=== PATIENT | female | born 1955 | race Caucasian/White ===

== ENCOUNTER 2019-03-16 06:00 | Outpatient (RCR) | payer MEDICARE, MEDICAID, SELFPAY | END 2019-04-15 00:01 | LOC: PULRHB 06:00 | PROVIDERS: Family Provider Internal Medicine; Visit Provider Internal Medicine | DX: J44.9 Chronic obstructive pulmonary disease, unspecified (principal) | CPT/HCPCS: G0237 ×10; G0238 ×6; G0239 ×6 ==

== ENCOUNTER 2019-04-16 06:00 | Outpatient (RCR) | payer MEDICARE, MEDICAID, SELFPAY | END 2019-05-16 23:59 | disposition home or self-care (01) | LOC: PULRHB 06:00 | PROVIDERS: Family Provider Internal Medicine; PCP Internal Medicine; Visit Provider Internal Medicine | DX: J44.9 Chronic obstructive pulmonary disease, unspecified (principal) | CPT/HCPCS: G0237; G0238; G0239 ==

== ENCOUNTER → 2019-12-31 08:27 | Outpatient (BNVA) | payer MEDICARE, MEDICAID, SELFPAY | PROVIDERS: Family Provider Internal Medicine; PCP Urology; Visit Provider Nurse Practitioner Family | DX: N30.20 Other chronic cystitis without hematuria (principal) | CPT/HCPCS: 81001 ==

== ENCOUNTER 2020-02-12 15:15 | Inpatient (IN) | payer MEDICARE, MEDICAID, SELFPAY ==
[2020-02-12] VITALS (20 sets, daily range): BP systolic 73–107; BP diastolic 40–84; PULSE 67–145; RESP 16–25; TEMP 36.4–36.6; O2SAT 82–100; BMI 29.0
--- NOTE | 2020-02-12 15:27 | ECG_ITS ---
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1955 Requested By: Anthony Alfredo Order Number: [id number] Reading MD: BELEM NOONAN Measurements Intervals Strong Rate: 131 P: NE: -1 QRS: -9 QRSD: 151 T: -67 QT: 336 QTc: 497 Interpretive Statements ATRIAL FIBRILLATION WITH RAPID VENTRICULAR RESPONSE RIGHT BUNDLE BRANCH BLOCK [120+ ms QRS DURATION, UPRIGHT V1, 40+ ms S IN I/aVL/V4/V5/V6] ST DEVIATION AND MODERATE T-WAVE ABNORMALITY, CONSIDER ANTEROLATERAL ISCHEMIA [-0.1+ mV T WAVE IN V3-V6] ST DEVIATION AND MODERATE T-WAVE ABNORMALITY, CONSIDER INFERIOR ISCHEMIA [-0.1+ mV T WAVE IN II/aVF] Compared to ECG 11/25/2018 05:16:12 Sinus rhythm no longer present T-wave abnormality still present Possible ischemia still present Electronically Signed On 02-12-2020 21:03:22 CDT by BELEM NOONAN [id number]
--- NOTE | 2020-02-12 15:28 | XR_ITS ---
WS: [id number] Exam: XR chest 1V portable [id number] Date/Time of Exam: 02/12/2020 3:28 PM Reason For Exam: dyspnea/cough Comparison 03/05/2019. The lungs are fully expanded and clear. The heart is enlarged. No pleural effusions. The mediastinum and bony thorax are intact. XR/XR chest 1V portable [id number] IMPRESSION: 1. Cardiac enlargement. No acute process.
--- NOTE | 2020-02-12 17:07 | W.ED.GENADLT ---
Documented by User: Anthony Estrella DO 02/17/20 13:49 HPI - General Adult General: Chief complaint: General Medical Stated complaint: RENAL FAILURE Time Seen by Provider: 02/12/20 15:25 History of Present Illness: HPI narrative: 64-year-old female brought in by EMS [facility]. She is complaining of not feeling well. Patient reports a known history of renal failure and presents here because she is not been able to eat or drink and when she does try to eat it makes her sick. She denies any recent fever sweats or chills or difficulty breathing cough or congestion. Not had any diarrhea. Onset (ago): hour(s) Location: abdomen Radiation: non-radiation Severity: moderate Quality: aching Relieving factors: none Associated symptoms: Reports confusion, nausea and weakness; Deny chest pain, cough, diaphoresis, decreased appetite, dyspnea, fevers/chills, headache(s), malaise, rash, palpitations, seizures, short of breath, syncope or vomiting Treatments prior to arrival: none Review of Systems Const: Denies: malaise or diaphoresis ENMT: Denies: throat pain, ear or mastoid pain, nasal discharge or nasal congestion Card: Denies: chest pain, palpitations or syncope Resp: Denies: dyspnea GI: Reports: nausea; Denies: vomiting : Denies: flank pain, difficulty voiding, dysuria, urinary frequency or urinary urgency Skin/Breast: Denies: rash Neuro: Reports: confusion; Denies: headache(s) [facility] ED PFSH: Medical History (Updated 02/17/20 @ 08:05 by Yocasta Ferguson MD) (HFpEF) heart failure with preserved ejection fraction -Echo: EF=60%, no RWMA, mild MR, moderate (new since 02/2016) -resumed lasix; renal function improved Chronic cystitis COPD (chronic obstructive pulmonary disease) -oxygen dependent at baseline, 3 L requirement -CXR unremarkable Depression Diabetes -A1c-6.8 (2019) -Accuchecks, ISS, hypoglycemia precautions -consistent carb diet HTN (hypertension) -continue to monitor vital signs -continue ACEi, diuretics Hypothyroidism -hx of papillary thyroid carcinoma s/p total thyroidectomy -continue levothyroxine -low TSH; may need adjustment of levothyroxine dose Morbid obesity -BMI-46 kg/m2 DENNYS (obstructive sleep apnea) Pyelonephritis TIA (transient ischemic attack) Urge incontinence Surgical History H/O cataract extraction H/O: hysterectomy S/P appendectomy S/P cholecystectomy S/P thyroidectomy Family History Father , 71 Stroke Mother , 83 CAD (coronary artery disease) Diabetes Lung disease Social History Smoking and tobacco status: never smoked Alcohol intake: never Marital status: / Current occupational status: retired Physical Exam Const: COMMON NORMALS: no acute distress GENERAL APPEARANCE: cooperative and comfortable ORIENTATION/CONSCIOUSNESS: Yes awake, Yes oriented to person, Yes oriented to place and Yes oriented to time HENMT: COMMON NORMALS: normocephalic, atraumatic, hearing grossly normal bilaterally, external ears normal, EAC's normal, TM's normal bilaterally, Normal nasal mucous membranes and turbinates present, moist oral mucous membranes and oropharynx normal HEAD & SCALP: normocephalic and atraumatic NOSE: Normal nasal mucous membranes and turbinates present EXTERNAL EAR: Yes external ears normal EXTERNAL AUDITORY CANAL: EAC's normal TYMPANIC MEMBRANE: TM's normal bilaterally Eye: COMMON NORMALS: Equal, round and reactive pupils present, EOMs intact bilaterally, conjunctivae normal and no scleral icterus CONJUNCTIVA: Yes conjunctivae normal PUPIL: Yes Equal, round and reactive pupils present Neck/C-Spine: COMMON NORMALS: full ROM, no lymphadenopathy, supple and no JVD Lymph: LYMPHATIC: no lymphadenopathy noted and no lymphedema noted Resp: COMMON NORMALS: normal respiratory effort, No retractions, No use of accessory muscles and clear to auscultation bilaterally AUSCULTATION: clear to auscultation bilaterally Cardio: COMMON NORMALS: no JVD, regular rate, regular rhythm and No murmurs present (Cardio) RATE: regular rate RHYTHM: regular rhythm GI: COMMON NORMALS: Soft to palpation and No hepatosplenomegaly present AUSCULTATION: Yes normoactive bowel sounds PALPATION: Yes Soft to palpation, No Tenderness to palpation present (GI), No Guarding due to palpation present (GI) and Yes No hepatosplenomegaly present Extremity: COMMON NORMALS: normal to inspection, capillary refill normal, no clubbing, cyanosis or edema, no calf tenderness and no pedal edema Neuro: SENSORIUM/ORIENTATION: Yes oriented to person, Yes oriented to place and Yes oriented to time Skin: COMMON NORMALS: no rashes or lesions noted GENERAL SKIN EXAM: no rashes or lesions noted Course Vital Signs: Vital signs: Vital Signs Temperature 98.7 F 02/17/20 05:46 Pulse Rate 110 H 02/17/20 12:00 Respiratory Rate 22 H 02/17/20 12:00 Blood Pressure 122/73 02/17/20 11:00 Pulse Oximetry 97 02/17/20 12:00 MDM - General Adult MDM Narrative: Medical decision making narrative: care transferred to [facility] at change of shift Lab Data: Labs: Lab Results 02/12/20 02/12/20 02/12/20 Range/Units 16:55 18:01 18:01 WBC 10.0 (4.0-10.0) 10^3/ uL RBC 5.55 H (4.1-5.3) 10^6/u L Hgb 13.6 (11.5-15.3) g/dL Hct 44.6 (37.0-47.0) % MCV 80.4 L (81-99) fL MCH 24.5 L (28.0-34.0) pg MCHC 30.5 (30.0-36.0) g/dL RDW 19.5 H (12.1-15.1) % Plt Count 260 (130-400) 10^3/c mm MPV 11.1 H (7.4-10.4) fL Neut % (Auto) 73.7 % Lymph % (Auto) 14.2 % [place] % (Auto) 9.4 % Eos % (Auto) 2.0 % Baso % (Auto) 0.4 % Neut # (Auto) 7.35 (1.8-7.7) 10^3/u L Lymph # (Auto) 1.4 (0.8-4.8) 10^3/u L [place] # (Auto) 0.9 (0.2-0.9) 10^3/u L Eos # (Auto) 0.2 (0.0-0.8) 10^3/u L Baso # (Auto) 0.0 (0.0-0.1) 10^3/u L Nucleated RBC % (a uto) 0 % Nucleated RBCs # 0.0 /100WBC PT (12.1-14.9) SECO NDS INR (0.8-1.2) APTT (23.9-36.7) SECO NDS Specimen Type Sample Site ABG pH (7.35-7.45) ABG pCO2 (35-45) mmHg ABG pO2 (80.0-100.0) mmH g ABG HCO3 (22-26) mmol/L ABG O2 Saturation ABG Base Excess (-2.0-2.0) mmol/ L Ryder Test A-a O2 Gradient (5-10) mmHg Hematocrit (37-47) % Hgb O2 Saturation (95-100) % Carboxyhemoglobin (0.4-20.1) %THgb Methemoglobin (0.4-1.5) % Total Hemoglobin (12-16) g/dL Ionized Calcium (1.1-1.4) mmol/L O2 Delivery Device O2 Liters/Min % FiO2 % Administrative Support Associate ID Sodium 135 L (136-145) mmol/L Potassium 4.9 (3.5-5.1) mmol/L Chloride 98 (98-107) mmol/L Carbon Dioxide 24 (22-29) mmol/L Anion Gap 17.9 (5-19) BUN 106 H* (8-23) mg/dL Creatinine 1.1 H (0.5-0.9) mg/dL GFR Calculation 49.7 L (90-130) mL/min Glucose 140 H (65-115) mg/dL Calculated Osmolal ity 316 H (285-295) mOsm/k g Lactic Acid (0.5-2.2) mmol/L Calcium 9.8 (8.5-10.5) mg/dL Magnesium (1.7-2.3) mg/dL Total Bilirubin 0.6 (0.15-1.2) mg/dL AST 20 (0-32) U/L ALT 31 (0-33) U/L Alkaline Phosphata se 206 H (35-105) IU/L Troponin T Baselin e (0-10) ng/L Total Protein 7.8 (6.6-8.7) g/dL Albumin 3.4 L (3.5-5.2) g/dL Globulin 4.4 (1.3-4.6) g/dL Urine Color Yellow (Yellow) Urine Appearance Sl cloudy A (CLEAR) Urine pH 5 (5-7) Ur Specific Gravit y 1.015 (1.005-1.030) Urine Protein Neg (Negative) Urine Glucose (UA) Norm (Normal) Urine Ketones Negative (Negative) Urine Blood 2+ H (Negative) Urine Nitrate Negative (Negative) Urine Bilirubin Neg (Negative) Urine Urobilinogen Neg (Negative) mg/dL Ur Leukocyte Keri ase 2+ H (Negative) Urine RBC 0-4 H (0-2) /hpf Urine WBC Too numerous to c nt H (0-5) /hpf Ur Squamous Epith Cells 0-4 H (0-5) /hpf Amorphous Sediment Not Reportable Urine Bacteria 2+ H (NONE) /hpf 02/12/20 02/12/20 02/12/20 Range/Units 18:01 18:01 18:01 WBC (4.0-10.0) 10^3/ uL RBC (4.1-5.3) 10^6/u L Hgb (11.5-15.3) g/dL Hct (37.0-47.0) % MCV (81-99) fL MCH (28.0-34.0) pg MCHC (30.0-36.0) g/dL RDW (12.1-15.1) % Plt Count (130-400) 10^3/c mm MPV (7.4-10.4) fL Neut % (Auto) % Lymph % (Auto) % [place] % (Auto) % Eos % (Auto) % Baso % (Auto) % Neut # (Auto) (1.8-7.7) 10^3/u L Lymph # (Auto) (0.8-4.8) 10^3/u L [place] # (Auto) (0.2-0.9) 10^3/u L Eos # (Auto) (0.0-0.8) 10^3/u L Baso # (Auto) (0.0-0.1) 10^3/u L Nucleated RBC % (a uto) % Nucleated RBCs # /100WBC PT 14.10 (12.1-14.9) SECO NDS INR 1.05 (0.8-1.2) APTT 37.6 H (23.9-36.7) SECO NDS Specimen Type Sample Site ABG pH (7.35-7.45) ABG pCO2 (35-45) mmHg ABG pO2 (80.0-100.0) mmH g ABG HCO3 (22-26) mmol/L ABG O2 Saturation ABG Base Excess (-2.0-2.0) mmol/ L Ryder Test A-a O2 Gradient (5-10) mmHg Hematocrit (37-47) % Hgb O2 Saturation (95-100) % Carboxyhemoglobin (0.4-20.1) %THgb Methemoglobin (0.4-1.5) % Total Hemoglobin (12-16) g/dL Ionized Calcium (1.1-1.4) mmol/L O2 Delivery Device O2 Liters/Min % FiO2 % Administrative Support Associate ID Sodium (136-145) mmol/L Potassium (3.5-5.1) mmol/L Chloride (98-107) mmol/L Carbon Dioxide (22-29) mmol/L Anion Gap (5-19) BUN (8-23) mg/dL Creatinine (0.5-0.9) mg/dL GFR Calculation (90-130) mL/min Glucose (65-115) mg/dL Calculated Osmolal ity (285-295) mOsm/k g Lactic Acid (0.5-2.2) mmol/L Calcium (8.5-10.5) mg/dL Magnesium 2.3 (1.7-2.3) mg/dL Total Bilirubin (0.15-1.2) mg/dL AST (0-32) U/L ALT (0-33) U/L Alkaline Phosphata se (35-105) IU/L Troponin T Baselin e 16 H (0-10) ng/L Total Protein (6.6-8.7) g/dL Albumin (3.5-5.2) g/dL Globulin (1.3-4.6) g/dL Urine Color (Yellow) Urine Appearance (CLEAR) Urine pH (5-7) Ur Specific Gravit y (1.005-1.030) Urine Protein (Negative) Urine Glucose (UA) (Normal) Urine Ketones (Negative) Urine Blood (Negative) Urine Nitrate (Negative) Urine Bilirubin (Negative) Urine Urobilinogen (Negative) mg/dL Ur Leukocyte Keri ase (Negative) Urine RBC (0-2) /hpf Urine WBC (0-5) /hpf Ur Squamous Epith Cells (0-5) /hpf Amorphous Sediment Urine Bacteria (NONE) /hpf 02/12/20 02/12/20 Range/Units 18:29 18:52 WBC (4.0-10.0) 10^3/ uL RBC (4.1-5.3) 10^6/u L Hgb (11.5-15.3) g/dL Hct (37.0-47.0) % MCV (81-99) fL MCH (28.0-34.0) pg MCHC (30.0-36.0) g/dL RDW (12.1-15.1) % Plt Count (130-400) 10^3/c mm MPV (7.4-10.4) fL Neut % (Auto) % Lymph % (Auto) % [place] % (Auto) % Eos % (Auto) % Baso % (Auto) % Neut # (Auto) (1.8-7.7) 10^3/u L Lymph # (Auto) (0.8-4.8) 10^3/u L [place] # (Auto) (0.2-0.9) 10^3/u L Eos # (Auto) (0.0-0.8) 10^3/u L Baso # (Auto) (0.0-0.1) 10^3/u L Nucleated RBC % (a uto) % Nucleated RBCs # /100WBC PT (12.1-14.9) SECO NDS INR (0.8-1.2) APTT (23.9-36.7) SECO NDS Specimen Type Arterial Sample Site Brachial, right ABG pH 7.41 (7.35-7.45) ABG pCO2 34.4 L (35-45) mmHg ABG pO2 110.0 H (80.0-100.0) mmH g ABG HCO3 21.9 L (22-26) mmol/L ABG O2 Saturation 96.0 ABG Base Excess -2.1 L (-2.0-2.0) mmol/ L Ryder Test N/a A-a O2 Gradient 13.3 H (5-10) mmHg Hematocrit 39.5 (37-47) % Hgb O2 Saturation 95.6 (95-100) % Carboxyhemoglobin < 0.0 L (0.4-20.1) %THgb Methemoglobin 0.6 (0.4-1.5) % Total Hemoglobin 12.9 (12-16) g/dL Ionized Calcium 1.3 (1.1-1.4) mmol/L O2 Delivery Device Nc O2 Liters/Min 4.0 % FiO2 36.0 % Administrative Support Associate ID Amh Sodium 135.0 (136-145) mmol/L Potassium 5.0 (3.5-5.1) mmol/L Chloride (98-107) mmol/L Carbon Dioxide (22-29) mmol/L Anion Gap (5-19) BUN (8-23) mg/dL Creatinine (0.5-0.9) mg/dL GFR Calculation (90-130) mL/min Glucose 144.0 H (65-115) mg/dL Calculated Osmolal ity (285-295) mOsm/k g Lactic Acid 1.5 (0.5-2.2) mmol/L Calcium (8.5-10.5) mg/dL Magnesium (1.7-2.3) mg/dL Total Bilirubin (0.15-1.2) mg/dL AST (0-32) U/L ALT (0-33) U/L Alkaline Phosphata se (35-105) IU/L Troponin T Baselin e (0-10) ng/L Total Protein (6.6-8.7) g/dL Albumin (3.5-5.2) g/dL Globulin (1.3-4.6) g/dL Urine Color (Yellow) Urine Appearance (CLEAR) Urine pH (5-7) Ur Specific Gravit y (1.005-1.030) Urine Protein (Negative) Urine Glucose (UA) (Normal) Urine Ketones (Negative) Urine Blood (Negative) Urine Nitrate (Negative) Urine Bilirubin (Negative) Urine Urobilinogen (Negative) mg/dL Ur Leukocyte Keri ase (Negative) Urine RBC (0-2) /hpf Urine WBC (0-5) /hpf Ur Squamous Epith Cells (0-5) /hpf Amorphous Sediment Urine Bacteria (NONE) /hpf EKG Data^: EKG 1: Computer generated interpretation: Chest X-Ray 02/12/20 15:28 IMPRESSION: 1. Cardiac enlargement. No acute process. EKG 2: Computer generated interpretation: Chest X-Ray 02/12/20 15:28 IMPRESSION: 1. Cardiac enlargement. No acute process. Discharge Plan Discharge Patient Disposition: Admitted As Inpatient Admit Provider: Feliciano Wen Clinical Impression: Atrial fibrillation with RVR, Sepsis, Acute UTI, Elevated BUN Condition: Stable Referrals: Akbar Torres DO [Family Provider] - 4-7 days (Post hospital discharge follow up. Treated for UTI and atrial fibrillation with RVR. ) Discharge Diet: Diabetic Discharge Activity: Increase activity as tolerated and Oxygen as instructed Patient Instructions: COPD, Atrial Fibrillation (DC), Using Oxygen at Home (DC) Additional Instructions: -Patient is still a high fall risk so should continue strict fall precautions on return to [facility]. She also requires assistance with all out of bed activity. -She is still oxygen dependent, oxygen can be titrated to maintain her oxygen saturation at or above 92% or for patient comfort Discharge Date/Time: 02/12/20 22:50 Sign Out Sign Out Data: Patient Sign Out occurred on 02/12/20 at 19:04. Patient's care was discussed, and care was transferred from to Tarah Baez. 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 Manager for Chg Fwd Exam Comprehensive Documented by User: Tarah Baez 02/12/20 23:18 HPI - General Adult General: Chief complaint: General Medical Stated complaint: RENAL FAILURE Time Seen by Provider: 02/12/20 15:25 [facility] ED PFSH: Medical History (Updated 02/17/20 @ 08:05 by Yocasta Ferguson MD) (HFpEF) heart failure with preserved ejection fraction -Echo: EF=60%, no RWMA, mild MR, moderate (new since 02/2016) -resumed lasix; renal function improved Chronic cystitis COPD (chronic obstructive pulmonary disease) -oxygen dependent at baseline, 3 L requirement -CXR unremarkable Depression Diabetes -A1c-6.8 (2019) -Accuchecks, ISS, hypoglycemia precautions -consistent carb diet HTN (hypertension) -continue to monitor vital signs -continue ACEi, diuretics Hypothyroidism -hx of papillary thyroid carcinoma s/p total thyroidectomy -continue levothyroxine -low TSH; may need adjustment of levothyroxine dose Morbid obesity -BMI-46 kg/m2 DENNYS (obstructive sleep apnea) Pyelonephritis TIA (transient ischemic attack) Urge incontinence Surgical History H/O cataract extraction H/O: hysterectomy S/P appendectomy S/P cholecystectomy S/P thyroidectomy Family History Father , 71 Stroke Mother , 83 CAD (coronary artery disease) Diabetes Lung disease Social History Smoking and tobacco status: never smoked Alcohol intake: never Marital status: / Current occupational status: retired Course Vital Signs: Vital signs: Vital Signs Temperature 98.7 F 02/17/20 05:46 Pulse Rate 110 H 02/17/20 12:00 Respiratory Rate 22 H 02/17/20 12:00 Blood Pressure 122/73 02/17/20 11:00 Pulse Oximetry 97 02/17/20 12:00 MDM - General Adult MDM Narrative: Medical decision making narrative: 2114 -patient care was assumed by me at change of shift from Dr. Estrella. Please see his note for his history, physical exam and medical decision-making notes. Patient relates to me that since having the Covid virus approximately 3 weeks ago she has become generally weak and lost her appetite. She has recovered from the Covid virus but her lack of appetite and nausea have persisted. The past 3 days things have gotten worse she really feels bad and does not want to eat or drink at all. She denies any abdominal pain. Denies any chest pain or shortness of breath. Patient has new onset A. fib with rapid ventricular response. She also has a UTI which we have treated with Rocephin. Patient may have an upper GI bleed as her BUN is elevated out of proportion to her creatinine for renal failure but she is not been having melena or bright red blood in her stools. She is guaiac positive but her stool is light brown. She denies being on any blood thinners but she is on aspirin. Patient's heart rate is improved with Cardizem here. I endorsed the case to Dr. Wen and he is agreeable to admission to [facility]. The patient is currently getting IV fluids, Cardizem drip and her UTI has been treated. I will give her a dose of Protonix here in the ER and this can be worked up further by Dr. Wen. Lab Data: Attestation: I reviewed the patient's lab results. Labs: Lab Results 02/12/20 02/12/20 02/12/20 Range/Units 16:55 18:01 18:01 WBC 10.0 (4.0-10.0) 10^3/ uL RBC 5.55 H (4.1-5.3) 10^6/u L Hgb 13.6 (11.5-15.3) g/dL Hct 44.6 (37.0-47.0) % MCV 80.4 L (81-99) fL MCH 24.5 L (28.0-34.0) pg MCHC 30.5 (30.0-36.0) g/dL RDW 19.5 H (12.1-15.1) % Plt Count 260 (130-400) 10^3/c mm MPV 11.1 H (7.4-10.4) fL Neut % (Auto) 73.7 % Lymph % (Auto) 14.2 % [place] % (Auto) 9.4 % Eos % (Auto) 2.0 % Baso % (Auto) 0.4 % Neut # (Auto) 7.35 (1.8-7.7) 10^3/u L Lymph # (Auto) 1.4 (0.8-4.8) 10^3/u L [place] # (Auto) 0.9 (0.2-0.9) 10^3/u L Eos # (Auto) 0.2 (0.0-0.8) 10^3/u L Baso # (Auto) 0.0 (0.0-0.1) 10^3/u L Nucleated RBC % (a uto) 0 % Nucleated RBCs # 0.0 /100WBC PT (12.1-14.9) SECO NDS INR (0.8-1.2) APTT (23.9-36.7) SECO NDS Specimen Type Sample Site ABG pH (7.35-7.45) ABG pCO2 (35-45) mmHg ABG pO2 (80.0-100.0) mmH g ABG HCO3 (22-26) mmol/L ABG O2 Saturation ABG Base Excess (-2.0-2.0) mmol/ L Ryder Test A-a O2 Gradient (5-10) mmHg Hematocrit (37-47) % Hgb O2 Saturation (95-100) % Carboxyhemoglobin (0.4-20.1) %THgb Methemoglobin (0.4-1.5) % Total Hemoglobin (12-16) g/dL Ionized Calcium (1.1-1.4) mmol/L O2 Delivery Device O2 Liters/Min % FiO2 % Administrative Support Associate ID Sodium 135 L (136-145) mmol/L Potassium 4.9 (3.5-5.1) mmol/L Chloride 98 (98-107) mmol/L Carbon Dioxide 24 (22-29) mmol/L Anion Gap 17.9 (5-19) BUN 106 H* (8-23) mg/dL Creatinine 1.1 H (0.5-0.9) mg/dL GFR Calculation 49.7 L (90-130) mL/min Glucose 140 H (65-115) mg/dL Calculated Osmolal ity 316 H (285-295) mOsm/k g Lactic Acid (0.5-2.2) mmol/L Calcium 9.8 (8.5-10.5) mg/dL Magnesium (1.7-2.3) mg/dL Total Bilirubin 0.6 (0.15-1.2) mg/dL AST 20 (0-32) U/L ALT 31 (0-33) U/L Alkaline Phosphata se 206 H (35-105) IU/L Troponin T Baselin e (0-10) ng/L Total Protein 7.8 (6.6-8.7) g/dL Albumin 3.4 L (3.5-5.2) g/dL Globulin 4.4 (1.3-4.6) g/dL Urine Color Yellow (Yellow) Urine Appearance Sl cloudy A (CLEAR) Urine pH 5 (5-7) Ur Specific Gravit y 1.015 (1.005-1.030) Urine Protein Neg (Negative) Urine Glucose (UA) Norm (Normal) Urine Ketones Negative (Negative) Urine Blood 2+ H (Negative) Urine Nitrate Negative (Negative) Urine Bilirubin Neg (Negative) Urine Urobilinogen Neg (Negative) mg/dL Ur Leukocyte Keri ase 2+ H (Negative) Urine RBC 0-4 H (0-2) /hpf Urine WBC Too numerous to c nt H (0-5) /hpf Ur Squamous Epith Cells 0-4 H (0-5) /hpf Amorphous Sediment Not Reportable Urine Bacteria 2+ H (NONE) /hpf 02/12/20 02/12/20 02/12/20 Range/Units 18:01 18:01 18:01 WBC (4.0-10.0) 10^3/ uL RBC (4.1-5.3) 10^6/u L Hgb (11.5-15.3) g/dL Hct (37.0-47.0) % MCV (81-99) fL MCH (28.0-34.0) pg MCHC (30.0-36.0) g/dL RDW (12.1-15.1) % Plt Count (130-400) 10^3/c mm MPV (7.4-10.4) fL Neut % (Auto) % Lymph % (Auto) % [place] % (Auto) % Eos % (Auto) % Baso % (Auto) % Neut # (Auto) (1.8-7.7) 10^3/u L Lymph # (Auto) (0.8-4.8) 10^3/u L [place] # (Auto) (0.2-0.9) 10^3/u L Eos # (Auto) (0.0-0.8) 10^3/u L Baso # (Auto) (0.0-0.1) 10^3/u L Nucleated RBC % (a uto) % Nucleated RBCs # /100WBC PT 14.10 (12.1-14.9) SECO NDS INR 1.05 (0.8-1.2) APTT 37.6 H (23.9-36.7) SECO NDS Specimen Type Sample Site ABG pH (7.35-7.45) ABG pCO2 (35-45) mmHg ABG pO2 (80.0-100.0) mmH g ABG HCO3 (22-26) mmol/L ABG O2 Saturation ABG Base Excess (-2.0-2.0) mmol/ L Ryder Test A-a O2 Gradient (5-10) mmHg Hematocrit (37-47) % Hgb O2 Saturation (95-100) % Carboxyhemoglobin (0.4-20.1) %THgb Methemoglobin (0.4-1.5) % Total Hemoglobin (12-16) g/dL Ionized Calcium (1.1-1.4) mmol/L O2 Delivery Device O2 Liters/Min % FiO2 % Administrative Support Associate ID Sodium (136-145) mmol/L Potassium (3.5-5.1) mmol/L Chloride (98-107) mmol/L Carbon Dioxide (22-29) mmol/L Anion Gap (5-19) BUN (8-23) mg/dL Creatinine (0.5-0.9) mg/dL GFR Calculation (90-130) mL/min Glucose (65-115) mg/dL Calculated Osmolal ity (285-295) mOsm/k g Lactic Acid (0.5-2.2) mmol/L Calcium (8.5-10.5) mg/dL Magnesium 2.3 (1.7-2.3) mg/dL Total Bilirubin (0.15-1.2) mg/dL AST (0-32) U/L ALT (0-33) U/L Alkaline Phosphata se (35-105) IU/L Troponin T Baselin e 16 H (0-10) ng/L Total Protein (6.6-8.7) g/dL Albumin (3.5-5.2) g/dL Globulin (1.3-4.6) g/dL Urine Color (Yellow) Urine Appearance (CLEAR) Urine pH (5-7) Ur Specific Gravit y (1.005-1.030) Urine Protein (Negative) Urine Glucose (UA) (Normal) Urine Ketones (Negative) Urine Blood (Negative) Urine Nitrate (Negative) Urine Bilirubin (Negative) Urine Urobilinogen (Negative) mg/dL Ur Leukocyte Keri ase (Negative) Urine RBC (0-2) /hpf Urine WBC (0-5) /hpf Ur Squamous Epith Cells (0-5) /hpf Amorphous Sediment Urine Bacteria (NONE) /hpf 02/12/20 02/12/20 Range/Units 18:29 18:52 WBC (4.0-10.0) 10^3/ uL RBC (4.1-5.3) 10^6/u L Hgb (11.5-15.3) g/dL Hct (37.0-47.0) % MCV (81-99) fL MCH (28.0-34.0) pg MCHC (30.0-36.0) g/dL RDW (12.1-15.1) % Plt Count (130-400) 10^3/c mm MPV (7.4-10.4) fL Neut % (Auto) % Lymph % (Auto) % [place] % (Auto) % Eos % (Auto) % Baso % (Auto) % Neut # (Auto) (1.8-7.7) 10^3/u L Lymph # (Auto) (0.8-4.8) 10^3/u L [place] # (Auto) (0.2-0.9) 10^3/u L Eos # (Auto) (0.0-0.8) 10^3/u L Baso # (Auto) (0.0-0.1) 10^3/u L Nucleated RBC % (a uto) % Nucleated RBCs # /100WBC PT (12.1-14.9) SECO NDS INR (0.8-1.2) APTT (23.9-36.7) SECO NDS Specimen Type Arterial Sample Site Brachial, right ABG pH 7.41 (7.35-7.45) ABG pCO2 34.4 L (35-45) mmHg ABG pO2 110.0 H (80.0-100.0) mmH g ABG HCO3 21.9 L (22-26) mmol/L ABG O2 Saturation 96.0 ABG Base Excess -2.1 L (-2.0-2.0) mmol/ L Ryder Test N/a A-a O2 Gradient 13.3 H (5-10) mmHg Hematocrit 39.5 (37-47) % Hgb O2 Saturation 95.6 (95-100) % Carboxyhemoglobin < 0.0 L (0.4-20.1) %THgb Methemoglobin 0.6 (0.4-1.5) % Total Hemoglobin 12.9 (12-16) g/dL Ionized Calcium 1.3 (1.1-1.4) mmol/L O2 Delivery Device Nc O2 Liters/Min 4.0 % FiO2 36.0 % Administrative Support Associate ID Amh Sodium 135.0 (136-145) mmol/L Potassium 5.0 (3.5-5.1) mmol/L Chloride (98-107) mmol/L Carbon Dioxide (22-29) mmol/L Anion Gap (5-19) BUN (8-23) mg/dL Creatinine (0.5-0.9) mg/dL GFR Calculation (90-130) mL/min Glucose 144.0 H (65-115) mg/dL Calculated Osmolal ity (285-295) mOsm/k g Lactic Acid 1.5 (0.5-2.2) mmol/L Calcium (8.5-10.5) mg/dL Magnesium (1.7-2.3) mg/dL Total Bilirubin (0.15-1.2) mg/dL AST (0-32) U/L ALT (0-33) U/L Alkaline Phosphata se (35-105) IU/L Troponin T Baselin e (0-10) ng/L Total Protein (6.6-8.7) g/dL Albumin (3.5-5.2) g/dL Globulin (1.3-4.6) g/dL Urine Color (Yellow) Urine Appearance (CLEAR) Urine pH (5-7) Ur Specific Gravit y (1.005-1.030) Urine Protein (Negative) Urine Glucose (UA) (Normal) Urine Ketones (Negative) Urine Blood (Negative) Urine Nitrate (Negative) Urine Bilirubin (Negative) Urine Urobilinogen (Negative) mg/dL Ur Leukocyte Keri ase (Negative) Urine RBC (0-2) /hpf Urine WBC (0-5) /hpf Ur Squamous Epith Cells (0-5) /hpf Amorphous Sediment Urine Bacteria (NONE) /hpf Imaging Data^: CXR: Attestation: I personally reviewed and interpreted this imaging study as follows: My impression: Cardiomegaly otherwise no acute cardiopulmonary process. Unchanged from previous. EKG Data^: EKG 1: Attestation: I personally reviewed and interpreted this EKG as follows: EKG interpretation date: 02/12/20 EKG interpretation time: 15:48 Interpretation: Atrial fibrillation with right bundle branch block with ventricular rate of 131. Left axis deviation, nonspecific ST and T wave changes. Computer generated interpretation: Chest X-Ray 02/12/20 15:28 IMPRESSION: 1. Cardiac enlargement. No acute process. EKG 2: Attestation: I personally reviewed and interpreted this EKG as follows: EKG interpretation date: 02/12/20 EKG interpretation time: 20:06 Interpretation: Atrial fibrillation with a right bundle branch block. Rapid ventricular rate at 148 beats a minute, nonspecific ST and T wave changes. Computer generated interpretation: Chest X-Ray 02/12/20 15:28
[2020-02-12 17:38] LABS: Glucose Urine UA Norm (Normal); Ketones Urine Negative (Negative); Protein Urine Neg (Negative); Specific Gravity, Urine 1.015 (1.005-1.030); Urine Color Yellow (Yellow); pH Urine 5 (5-7)
[2020-02-12 17:39] LABS: Add Urine Microscopic? YES; Bilirubin Urine Neg (Negative); Blood Urine 2+ (Negative); Leukocyte Esterase Urine 2+ (Negative); Nitrate Urine Negative (Negative); Urobilinogen Urine Neg (Negative)
[2020-02-12 17:40] LABS: Add Urine Culture? Yes; Bacteria Urine 2+ /hpf; RBC Urine 0-4 /hpf (0-2); Squamous Epithelial Cell Urine 0-4 /hpf (0-5); WBC Urine TOO NUMEROUS TO CNT /hpf (0-5)
[2020-02-12] MEDS: cefTRIAXone 1,000 MG in sodium chloride 0.9% (plus) 50 ML 100 MG IV (18:15)
[2020-02-12 18:23] LABS: Basophils % 0.4 %; Eosinophils # 0.2 10^3/uL (0.0-0.8); Hematocrit 44.6 % (37.0-47.0); Hemoglobin 13.6 g/dL (11.5-15.3); Lymphocytes # 1.4 10^3/uL (0.8-4.8); Lymphocytes % 14.2 %; Mean Corpuscular HGB Conc 30.5 g/dL (30.0-36.0); Mean Corpuscular Hemoglobin 24.5 pg (28.0-34.0); Mean Corpuscular Volume 80.4 fL (81-99); Mean Platelet Volume 11.1 fL (7.4-10.4); Monocytes # 0.9 10^3/uL (0.2-0.9); Monocytes % 9.4 %; Neutrophils # 7.35 10^3/uL (1.8-7.7); Neutrophils % 73.7 %; Nucleated Red Blood Cells % 0 %; Platelet Count 260 10^3/cmm (130-400); Red Blood Count 5.55 10^6/uL (4.1-5.3); Red Cell Distribution Width 19.5 % (12.1-15.1)
[2020-02-12 19:03] LABS: ABG PCO2 34.4 mmHg (35-45); ABG PH Result 7.41 (7.35-7.45); Alveolar-Arterial Oxygen Gradi 13.3 mmHg (5-10); Arterial Blood Gas Hematocrit 39.5 % (37-47); Base Excess ABG -2.1 mmol/L (-2.0-2.0); Blood Gas Operator Identificat AMH; Blood Gas Sample Site Brachial, right; Blood Gas Sample Type Arterial; Carboxyhemoglobin < 0.0 %THgb (0.4-20.1); HCO3 ABG 21.9 mmol/L (22-26); HGB O2 Sat 95.6 % (95-100); Ionized Calcium Level - ABG 1.3 mmol/L (1.1-1.4); Methemoglobin 0.6 % (0.4-1.5); Oxygen Device NC; Total Hemoglobin 12.9 g/dL (12-16)
[2020-02-12 19:14] LABS: Alanine Aminotransferase 31 U/L (0-33); Albumin Level 3.4 g/dL (3.5-5.2); Alkaline Phosphatase 206 IU/L (35-105); Anion Gap 17.9 (5-19); Aspartate Amino Transferase 20 U/L (0-32); Calcium 9.8 mg/dL (8.5-10.5); Carbon Dioxide 24 mmol/L (22-29); Chloride 98 mmol/L (98-107); Globulin 4.4 g/dL (1.3-4.6); Glomerular Filtration Rate 49.7 mL/min (90-130); Glucose 140 mg/dL (65-115); Osmolality Calculated 316 mOsm/kg (285-295); Potassium 4.9 mmol/L (3.5-5.1); Sodium 135 mmol/L (136-145); Total Bilirubin 0.6 mg/dL (0.15-1.2); Total Protein 7.8 g/dL (6.6-8.7)
[2020-02-12 19:15] LABS: Lactic Sepsis W/Reflex 1.5 mmol/L (0.5-2.2)
[2020-02-12 19:51] LABS: Blood Urea Nitrogen 106 mg/dL (8-23)
--- NOTE | 2020-02-12 19:52 | PC.NURSE ---
Lab called critical BUN 106, notified Dr. Baez, no orders received at this time
--- NOTE | 2020-02-12 20:07 | ECG_ITS ---
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1955 Requested By: Tarah Lomeli Order Number: [id number] Ran MD: BELEM NOONAN Measurements Intervals [place] Rate: 148 P: NM: -1 QRS: 7 QRSD: 145 T: -85 QT: 322 QTc: 506 Interpretive Statements ATRIAL FIBRILLATION WITH RAPID VENTRICULAR RESPONSE RIGHT BUNDLE BRANCH BLOCK [120+ ms QRS DURATION, UPRIGHT V1, 40+ ms S IN I/aVL/V4/V5/V6] ST DEVIATION AND MODERATE T-WAVE ABNORMALITY, CONSIDER LATERAL ISCHEMIA [-0.1+ mV T WAVE IN I/aVL/V5/V6] ST DEVIATION AND MODERATE T-WAVE ABNORMALITY, CONSIDER INFERIOR ISCHEMIA [-0.1+ mV T WAVE IN II/aVF] Compared to ECG 02/12/2020 15:48:47 No significant changes Electronically Signed On 02-13-2020 18:21:33 CDT by BELEM NOONAN [email or web address]/NU/[id number] f
--- NOTE | 2020-02-12 20:13 | PC.NURSE ---
Tried to obtain a manual blood pressure on the patient's right forearm, was not able to get a manual blood pressure
[2020-02-12 20:43] LABS: INR 1.05 (0.8-1.2)
[2020-02-12 20:45] LABS: Partial Thromboplastin Time 37.6 SECONDS (23.9-36.7)
[2020-02-12 20:46] LABS: Magnesium 2.3 mg/dL (1.7-2.3); Troponin(5th) Baseline 16 ng/L (0-10)
[2020-02-12] MEDS: sodium chloride 0.9% 1,000 ML 999 ML IV (20:53)
[2020-02-12 21:24] LABS: Troponin 5 2HR 18.95 ng/L (0-10); Troponin 5 2HR Delta 2.95 ABS# (0-10)
[2020-02-12] MEDS: pantoprazole 40 mg SDV 80 MG IVP (21:46)
--- NOTE | 2020-02-12 23:26 | PM.HP ---
Providers/Chief Complaint Admitting Physician: Feliciano Wen Primary Care Provider: Clint Elias MD Chief Complaint: RENAL FAILURE History of Present Illness Madelyn Olsen is a 64 year old female With a past medical history significant for diabetes mellitus gastroesophageal reflux disease, hypothyroidism, hypertension, dyslipidemia, chronic O2 dependent respiratory failure, recent COVID-19 infection and chronic cystitis who presented to the hospital with generalized weakness, nausea and vomiting. Upon arrival to emergency room she was found to be in atrial fibrillation with rapid ventricular response. No prior history of atrial fibrillation. Initial laboratory workup showed a WBC of 10, hemoglobin 13.6, hematocrit of 44.6 and a platelet count of 260. Sodium 135, potassium 4.9, chloride 98, bicarb 24, BUN 106 and creatinine of 1.1 with a glucose of 140. INR of 1.05. Arterial blood gases showed a pH 7.41, pCO2 34.4 and a bicarb 21.9. Urinalysis showed 2+ leukocyte esterase and 2+ bacteria with numerous wbc's. Imaging studies included a chest x-ray which showed cardiac enlargement with no acute process. Patient was started on a Cardizem drip and admitted to the intensive care unit. Review of Systems Const: Denies: malaise or diaphoresis ENMT: Denies: throat pain, ear or mastoid pain, nasal discharge or nasal congestion Card: Denies: chest pain, palpitations or syncope Resp: Denies: dyspnea GI: Reports: nausea; Denies: vomiting : Denies: flank pain, difficulty voiding, dysuria, urinary frequency or urinary urgency Skin/Breast: Denies: rash Neuro: Reports: confusion; Denies: headache(s) Medications/Allergies Home Medications Medication Instructions Recorded Confirmed Last Taken Type albuterol sulfate 90 mcg/actuation 2 inh INHALATION Q6H PRN 12/31/19 02/12/20 Unknown History breath activated powder inhaler aspirin 81 mg tablet,delayed 81 mg PO DAILY 12/31/19 02/12/20 02/12/20 History release atorvastatin 20 mg tablet 20 mg PO DAILY 12/31/19 02/12/20 02/11/20 History azelastine 137 mcg (0.1 %) nasal 1 spray INTRANASAL BID 12/31/19 02/12/20 02/12/20 History spray aerosol buspirone 7.5 mg tablet 7.5 mg PO BID 12/31/19 02/12/20 02/12/20 History cetirizine 10 mg capsule 10 mg PO DAILY PRN 12/31/19 02/12/20 01/25/20 History ferrous sulfate 325 mg (65 mg 325 mg PO DAILY 12/31/19 02/12/20 02/11/20 History iron) tablet fluoxetine 40 mg capsule 40 mg PO DAILY 12/31/19 02/12/20 02/12/20 History fluticasone furoate 50 See Rx Instructions .ROUTE .COMPLEX 12/31/19 02/12/20 02/12/20 History mcg/actuation blister powder for inhalation furosemide 40 mg tablet 60 mg PO DAILY tab 12/31/19 02/12/20 02/12/20 History hydrochlorothiazide 25 mg tablet 12.5 mg PO DAILY 12/31/19 02/12/20 02/12/20 History hydrocodone 5 mg-acetaminophen 325 1 - 2 tab PO Q6H PRN 12/31/19 02/12/20 02/11/20 History mg tablet insulin aspart U-100 100 unit/mL 24 unit SUBCUT TID 12/31/19 02/12/20 02/12/20 History subcutaneous solution levothyroxine 125 mcg capsule 125 mcg PO DAILY 12/31/19 02/12/20 02/12/20 History lisinopril 40 mg tablet 40 mg PO DAILY 12/31/19 02/12/20 02/12/20 History loperamide 2 mg capsule 2 mg PO Q6H PRN 12/31/19 02/12/20 02/12/20 History metoclopramide HCl 5 mg tablet 5 mg PO DAILY 12/31/19 02/12/20 02/12/20 History montelukast 10 mg tablet 10 mg PO DAILY 12/31/19 02/12/20 01/26/20 History ondansetron HCl 4 mg tablet 4 mg PO Q8H PRN 12/31/19 02/12/20 02/09/20 History pantoprazole 40 mg tablet,delayed 40 mg PO DAILY 12/31/19 02/12/20 02/12/20 History release phenazopyridine 200 mg tablet 200 mg PO TID PRN 12/31/19 02/12/20 01/25/20 History sitagliptin 100 mg tablet 100 mg PO DAILY 09/02/12/20 02/12/20 History tramadol 100 mg tablet 100 mg PO DAILY PRN 12/31/19 02/12/20 02/12/20 History trazodone 50 mg tablet 25 mg PO BEDTIME 12/31/19 02/12/20 02/11/20 History acetaminophen 650 mg PO PRN PRN 02/12/20 02/12/20 01/25/20 History bisacodyl 10 mg PO PRN PRN 02/12/20 02/12/20 Unknown History bisacodyl 10 mg [place] DAILY PRN 02/12/20 02/12/20 Unknown History dexamethasone 6 mg PO DAILY 02/12/20 02/12/20 02/02/20 History docusate sodium [Stool Softener] 100 mg PO DAILY 02/12/20 02/12/20 02/12/20 History fluticasone propionate See Rx Instructions .ROUTE .COMPLEX 02/12/20 02/12/20 Unknown History guaifenesin [Mucus Relief] 400 mg PO BID PRN 02/12/20 02/12/20 09/28/19 History insulin aspart U-100 [Novolog See Rx Instructions .ROUTE .COMPLEX 02/12/20 02/12/20 02/12/20 History U-100 Insulin aspart] insulin degludec [Tresiba 75 unit SUBCUT BEDTIME 02/12/20 02/12/20 02/10/20 History FlexTouch U-100] magnesium hydroxide [Milk of 400 mg PO DAILY PRN 02/12/20 02/12/20 02/04/20 History Magnesia] metoprolol tartrate 50 mg PO BID 02/12/20 02/12/20 02/12/20 History nitrofurantoin monohyd/m-cryst 100 mg PO BID 02/12/20 02/12/20 09/28/19 History [Macrobid] polyethylene glycol 3350 [ClearLax] 17 g PO DAILY 02/12/20 02/12/20 02/12/20 History sodium phosphates [Fleet Enema] 118 ml [place] DAILY PRN 02/12/20 02/12/20 10/13/19 History Allergies Allergy/AdvReac Type Severity Reaction Status Date / Time No Known Allergies Allergy Unverified 05/19/19 14:08 PFSH Acute PFSH: Medical History Chronic cystitis Diabetes Urge incontinence Surgical History H/O cataract extraction H/O: hysterectomy S/P appendectomy S/P cholecystectomy S/P thyroidectomy Family History Father , 71 Stroke Mother , 83 CAD (coronary artery disease) Diabetes Lung disease Social History Smoking and tobacco status: never smoked Alcohol intake: never Marital status: / Current occupational status: retired Vitals/I&O/Wt Last Vital Signs Temp 97.6 F 02/12/20 23:10 Pulse 125 H 02/12/20 23:20 Resp 23 H 02/12/20 23:20 BP 89/53 02/12/20 23:20 Pulse Ox 92 02/12/20 23:20 02/12/20 02/12/20 02/13/20 14:59 22:59 06:59 Intake Total 50 / 50 Balance 50 / 50 Weight last 48 hrs Weight 76.657 kg Physical Exam Narrative: EXAM NARRATIVE: General-chronically ill-appearing HEENT- on O2, grossly unremarkable CVS -irregularly irregular rhythm CVS-decreased breath sounds at bases Abdomen -soft nontender nondistended Extremities-no significant edema Data : 02/13/20 02:10 02/13/20 02:10 Micro: Microbiology 02/12/20 17:59 Blood Culture - Preliminary Blood SPECIMEN COLLECTED 02/12/20 18:01 Blood Culture - Preliminary Blood SPECIMEN COLLECTED A&P Assessment and plan (1) Atrial fibrillation with RVR: Continue Cardizem drip to titrate to keep heart rate at less than 100, Cardiology consultation in a.m., echocardiogram ordered to perform once heart rate under control, unable to initiate anticoagulation due to possible GI bleed. Status: Acute (2) Sepsis: Secondary to below. Status: Acute Qualifiers: Sepsis acute organ dysfunction status: unspecified Sepsis type: sepsis due to unspecified organism Qualified Code(s): A41.9 - Sepsis, unspecified organism (3) Acute UTI: Status post ceftriaxone in emergency room. Urine and blood cultures ordered. Will continue ceftriaxone 2 g IV Q 24 hour until cultures reported. Status: Acute (4) GI bleed: Apparently patient was guaiac positive in emergency room. Hemoglobin remained stable. Will recheck in a.m.. Transfuse if below 8. may consider surgery consultation. Continue PPI. Status: Acute Attestations Medical Necessity Statement*: Due to new onset atrial fibrillation requiring IV Cardizem, possible GI bleed and sepsis secondary to urinary tract infection requiring IV antibiotics patient will likely require over 2 midnight stay in hospital. 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
[2020-02-12] MEDS: famotidine 20 mg/2 mL INJ IVP (23:56)
[2020-02-13] VITALS (146 sets, daily range): BP systolic 76–146; BP diastolic 45–102; PULSE 0–162; RESP 12–28; TEMP 37.1; O2SAT 82–97
--- NOTE | 2020-02-13 01:46 | PC.NURSE ---
Patient arrived from ED with ED staff on gurney to ICU 9. Belongings placed in room/phone on bedside table. Tachycardia 140's of which MD aware, was noted. On 4L NC. Pt transferred over to ICU bed without incident. Oriented patient to room, and instructed on use of call light. Call light placed within reach. MD community integration specialist rounded on patient in ICU. Gave v/o to hold Cardizem via IV. Instructed for pt to remain on NS for time being, and to work on achieving optimal BP status before start of Cardizem. Pt resting comfortably. Room visible from nurses station.
[2020-02-13] MEDS: ondansetron 2 mg/ML SDV 2 mL 4 MG IVP (02:02)
[2020-02-13] MEDS: sodium chloride 0.9% 500 ML 999 ML IV (02:15)
[2020-02-13] MEDS: morphine 4 mg/mL SDV 1 mL IVP (02:19)
--- NOTE | 2020-02-13 02:45 | PC.NURSE ---
NEW ORDER: v/o from MD Behzad pulmonologist to give 500mL NS bolus. Keep SBP above 90. If after admin of bolus SBP over 90, then to restart Cardizem at 5. If SBP below 90, then to initiate a Levo drip.
[2020-02-13 02:56] LABS: Basophils % 0.3 %; Eosinophils # 0.1 10^3/uL (0.0-0.8); Eosinophils % 1.5 %; Hematocrit 40.5 % (37.0-47.0); Hemoglobin 12.5 g/dL (11.5-15.3); Lymphocytes # 1.3 10^3/uL (0.8-4.8); Lymphocytes % 14.5 %; Mean Corpuscular HGB Conc 30.9 g/dL (30.0-36.0); Mean Corpuscular Hemoglobin 24.9 pg (28.0-34.0); Mean Corpuscular Volume 80.5 fL (81-99); Monocytes # 0.9 10^3/uL (0.2-0.9); Monocytes % 10.2 %; Neutrophils # 6.65 10^3/uL (1.8-7.7); Neutrophils % 73.2 %; Nucleated Red Blood Cells % 0 %; Platelet Count 225 10^3/cmm (130-400); Red Blood Count 5.03 10^6/uL (4.1-5.3); Red Cell Distribution Width 19.4 % (12.1-15.1); White Blood Count 9.1 10^3/uL (4.0-10.0)
[2020-02-13 03:02] LABS: Anion Gap 18.8 (5-19); Calcium 9.2 mg/dL (8.5-10.5); Carbon Dioxide 20 mmol/L (22-29); Chloride 104 mmol/L (98-107); Glomerular Filtration Rate 62.6 mL/min (90-130); Glucose 165 mg/dL (65-115); Osmolality Calculated 318 mOsm/kg (285-295); Potassium 4.8 mmol/L (3.5-5.1); Sodium 138 mmol/L (136-145)
[2020-02-13 03:03] LABS: Troponin 5 6HR 17.85 ng/L (0-10)
[2020-02-13 03:13] LABS: Blood Urea Nitrogen 92 mg/dL (8-23)
--- NOTE | 2020-02-13 04:52 | PC.NURSE ---
Patient Daughter Madelyn Woods phoned for update on mother's condition. Requested that she be the person to notify/designated visitor throughout her mother's inpatient admission.
--- NOTE | 2020-02-13 06:40 | PC.NURSE ---
Shift Summary: Patient restless with c/o pain throughout shift after transfer from ED. Morphine IVP given. Patient c/o n/v, Zofran PRN given IVP. Patient able to rest more comfortably after med admins. Cardizem drip running at 15mL/hr. SBP continues to remain above 90-100. No fluids started after bolus given, per MD transportation officer orders. Daughter called this AM and gave more patient history stating patient has hx of CHF, and DM type 2. Also states patient has some confusion at times. Report given to oncoming shift RN. No further needs at this time.
[2020-02-13 07:03] LABS: Glucose Point of Care 157 mg/dL (70-110)
--- NOTE | 2020-02-13 08:22 | P.PN_ITS ---
Subjective Subjective: Interval history: Chart reviewed, remains on Cardizem drip, HR improving, afebrile, on RA. Had 300 mL urine output overnight. Improved renal function. Resting quietly in bed, slow to respond though answers simple questions appropriately. Will start on oral intake. Medications: Reviewed: Yes Medication Review Details: Active Medications Generic Name Dose Route Start Last Admin Trade Name Freq PRN Reason Stop Dose Admin Acetaminophen 650 mg 02/12/20 23:17 Tylenol PO Q6H PRN Mild/Mod Pain Or Temp >/= 101 Dextrose 25 ml 02/12/20 23:24 D50w IVP ONCE PRN hypoglycemia prot ocol Protocol Dextrose 50 ml 02/12/20 23:24 D50w IVP PRN PRN hypoglycemia prot ocol Protocol Famotidine 20 mg 02/12/20 23:30 02/12/20 23:56 Pepcid Inj IVP 20 mg Q12H EVELIA Administration Glucagon 1 mg 02/12/20 23:24 Glucagen IM ONCE PRN Adult Acute Hypog lycemia Prot. Protocol Sodium Chloride 1,000 mls @ 75 ml s/hr 02/12/20 20:15 02/12/20 23:14 Sodium Chloride 0.9% IV Not Given .[id number] EVELIA Diltiazem HCl 125 mg/ Sodium 125 mls @ 0 mls/h r 02/12/20 20:15 02/13/20 03:23 Chloride IV 15 mg/hr .Q0M EVELIA 15 mls/hr Titration Protocol Per Protocol Dextrose 500 mls @ 100 mls /hr 02/12/20 23:24 D5w IV ONCE PRN Adult Acute Hypog lycemia Prot Protocol Ceftriaxone Sodium 1,000 mg/ 50 mls @ 100 mls/ hr 02/13/20 09:00 Sodium Chloride IV DAILY EVELIA Protocol Insulin Aspart 0 unit 02/13/20 08:00 02/13/20 07:40 Novolog SUBCUT 4 unit TIDWM EVELIA Administration Protocol Metoprolol Tartrat e 50 mg 02/13/20 09:00 Lopressor PO BID EVELIA Morphine Sulfate 4 mg 02/12/20 23:00 02/13/20 02:19 Morphine IVP 4 mg Q4H PRN Administration SEVERE PAIN Ondansetron HCl 4 mg 02/12/20 23:00 02/13/20 02:02 Zofran IVP 4 mg Q6H PRN Administration NAUSEA AND VOMITI NG No Known Allergies Allergy (Unverified 05/19/19 14:08) Vitals/I&O/Wt Last Vital Signs Temp 97.6 F 02/12/20 23:10 Pulse 118 H 02/13/20 08:00 Resp 18 02/13/20 08:00 BP 105/75 02/13/20 08:00 Pulse Ox 94 02/13/20 08:00 02/12/20 02/13/20 02/13/20 22:59 06:59 14:59 Intake Total 1050.667 / 1050.667 504.000 / 1554.667 Output Total 300 / 300 Balance 1050.667 / 1050.667 204.000 / 1254.667 Weight last 48 hrs Weight 118.388 kg Weight 76.657 kg Physical Exam Const: COMMON NORMALS: no acute distress and alert GENERAL APPEARANCE: cooperative and comfortable NUTRITIONAL APPEARANCE: obese morbidly obese ORIENTATION/CONSCIOUSNESS: Yes awake, Yes oriented to person and Yes oriented to place HENMT: COMMON NORMALS: normocephalic, atraumatic, hearing grossly normal bilaterally and moist oral mucous membranes HEAD & SCALP: normocephalic and atraumatic TEETH & GINGIVA: Yes edentulous Eye: COMMON NORMALS: Equal, round and reactive pupils present, EOMs intact bilaterally and conjunctivae normal CONJUNCTIVA: Yes conjunctivae normal PUPIL: Yes Equal, round and reactive pupils present Neck/C-Spine: COMMON NORMALS: full ROM GENERAL: Yes normal visual inspection and Yes trachea midline Resp: COMMON NORMALS: normal respiratory effort, No retractions, No use of accessory muscles and clear to auscultation bilaterally EFFORT & INSPECTION: Yes able to speak in complete sentences, Yes symmetric chest movement and No tachypneic AUSCULTATION: clear to auscultation bilaterally Cardio: COMMON NORMALS: S1 normal heart sound present and S2 normal heart sound present RATE: tachycardic RHYTHM: abnormal rhythm irregularly irregular HEART SOUNDS: S1 normal heart sound present, S2 normal heart sound present and Murmur heart sound present systolic GI: COMMON NORMALS: Normal to inspection, nondistended, normoactive bowel sounds present, Soft to palpation and non-tender INSPECTION: Yes central obesity PALPATION: Yes Soft to palpation Extremity: COMMON NORMALS: normal to inspection, no clubbing, cyanosis or edema and no pedal edema Neuro: COMMON NORMALS: moves all extremities, no focal motor deficits and no sensory deficits noted SENSORIUM/ORIENTATION: Yes alert, Yes oriented to person and Yes oriented to place Psych: COMMON NORMALS: mental status grossly normal, Normal thought process present, cooperative, normal affect and speech normal SPEECH: Yes normal speech THOUGHT PROCESS: Normal thought process present Skin: COMMON NORMALS: no rashes or lesions noted, no jaundice, no petechiae and no mottling GENERAL SKIN EXAM: no rashes or lesions noted Data : 02/13/20 02:10 02/13/20 02:10 Micro: Microbiology 02/12/20 17:59 Blood Culture - Preliminary Blood SPECIMEN COLLECTED 02/12/20 18:01 Blood Culture - Preliminary Blood SPECIMEN COLLECTED A&P Assessment and plan (1) Atrial fibrillation with RVR: -noted to have atrial fibrillation with RVR -on cardizem drip, wean as tolerated -telemetry monitoring -resume BB -Echo: EF=60%, no RWMA, mild MR, moderate (new since 02/2016) -troponins noted with no significant delta Status: Acute (2) Acute UTI: -UA strongly indicative of infection -f/u urine cx -on ceftriaxone Status: Acute (3) GI bleed: -found to be fecal occult + in ED -H/H stable; continue to monitor -on ASA 81 mg, otherwise no AC -has known hx of GERD, iron-deficiency anemia -has had prior GI workup in 2014, negative colonoscopy, noted reflux esophagitis and gastritis on EGD Status: Acute Qualifiers: GI bleed type/associated pathology: unspecified gastrointestinal hemorrhage type Qualified Code(s): K92.2 - Gastrointestinal hemorrhage, unspecified (4) Sepsis: -secondary to UTI as noted above -afebrile, no leukocytosis Status: Acute Qualifiers: Sepsis acute organ dysfunction status: unspecified Sepsis type: sepsis due to unspecified organism Qualified Code(s): A41.9 - Sepsis, unspecified organism (5) Acute kidney injury: -improving renal function, continue to monitor -ACEi, diuretics on hold Status: Acute (6) COPD (chronic obstructive pulmonary disease): -oxygen dependent at baseline, 3 L requirement -CXR unremarkable Status: Chronic Qualifiers: COPD type: unspecified COPD Qualified Code(s): J44.9 - Chronic obstructive pulmonary disease, unspecified (7) Diabetes: -A1c-6.8 (2019) -Accuchecks, ISS, hypoglycemia precautions -consistent carb diet when PO appropriate Status: Chronic Qualifiers: Diabetes mellitus complication status: without complication 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: with superintendent [employer] use Diabetes mellitus type: type 2 Qualified Code(s): E11.9 - Type 2 diabetes mellitus without complications; Z79.4 - long-term (current) use of insulin (8) (HFpEF) heart failure with preserved ejection fraction: -repeat Echo pending, prior one done in 2016, EF=57%, no RWMA, mild- moderate LVH, mild MR -hold lasix due to renal impairment Status: Chronic Qualifiers: Heart failure chronicity: chronic Qualified Code(s): I50.32 - Chronic diastolic (congestive) heart failure (9) Hypothyroidism: -hx of papillary thyroid carcinoma s/p total thyroidectomy -resume levothyroxine -check TSH Status: Chronic Qualifiers: Hypothyroidism type: acquired Qualified Code(s): E03.9 - Hypothyroidism, unspecified (10) HTN (hypertension): -continue to monitor vital signs -ACEi, diuretics on hold due to renal impairment Status: Chronic Qualifiers: Hypertension type: essential hypertension Qualified Code(s): I10 - Essential (primary) hypertension (11) Morbid obesity: -BMI-45 kg/m2 Status: Chronic Additional A&P Information -GI ppx with famotidine -DVT ppx with SCDs, no AC due to concern for GI bleed -advance to GI soft diet -Dispo: came from [facility] -Code status: FULL code; noted DNR on [facility] paperwork, will need to clarify this Attestations Medical Necessity Statement*: Patient requires hospitalization for continued management of atrial fibrillation with RVR, UTI. Time Spent in Patient Care: Greater than 35 minutes (>than 50% of time spent in counselling and/or direct pt care on unit) . Coding Level of Care Code Acute Chief Security Officer for [facility] Fwd Exam Comprehensive Diagnoses Atrial fibrillation with RVR I48.91 Acute UTI N39.0 GI bleed K92.2 GI bleed type/associated pathology: unspecified gastrointestinal hemorrhage type Sepsis A41.9 Sepsis acute organ dysfunction status: unspecified Sepsis type: sepsis due to unspecified organism Acute kidney injury N17.9 COPD (chronic obstructive pulmonary disease) J44.9 COPD type: unspecified COPD Diabetes E11.9; Z79.4 Diabetes mellitus complication status: without complication 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: with custodial use Diabetes mellitus type: type 2 (HFpEF) heart failure with preserved ejection fraction I50.32 Heart failure chronicity: chronic Hypothyroidism E03.9 Hypothyroidism type: acquired HTN (hypertension) I10 Hypertension type: essential hypertension Morbid obesity E66.01
[2020-02-13] MEDS: sodium chloride 0.9% 1,000 ML 75 ML IV (08:56)
[2020-02-13] MEDS: cefTRIAXone 1,000 MG in sodium chloride 0.9% (plus) 50 ML 100 MG IV (08:57)
[2020-02-13] MEDS: metoprolol tartrate 50 mg Tablet PO ×2 (09:41→18:03)
[2020-02-13] MEDS: montelukast sodium 10 mg Tablet PO (09:41)
[2020-02-13] MEDS: levothyroxine 125 mcg Tablet PO (09:41)
[2020-02-13] MEDS: famotidine 20 mg/2 mL INJ IVP ×2 (11:23→23:47)
[2020-02-13 11:30] LABS: Glucose Point of Care 161 mg/dL (70-110)
[2020-02-13 17:23] LABS: Glucose Point of Care 161 mg/dL (70-110)
[2020-02-13 21:26] LABS: Glucose Point of Care 187 mg/dL (70-110)
--- NOTE | 2020-02-13 21:29 | PC.NURSE ---
New Order: v/o for new indwelling asencio placement given by MD Behzad gun synchronizer. 16f with 10mL instilled into cath balloon. Immediate 300mL out of cloudy/purulent urine with sediment noted during placement. Pt tolerated procedure well.
[2020-02-13] MEDS: morphine 4 mg/mL SDV 1 mL 2 MG IVP (22:04)
--- NOTE | 2020-02-13 23:21 | USCV_ITS ---
Madelyn Olsen Age: 64 Gender: F : 1955 Exam Date: 02/13/2020 06:43 Ordering Phys: Feliciano Wen MD Technologist: Pramod Arroyo [place]am Location[place] [facility] [place]ication: new afib BP: 132 / 75 HR: 114 Rhythm: Sinus Technical Quality: Fair MEASUREMENTS (Male / Female) Normal Values 2D ECHO LV Diastolic Diameter PLAX 3.6 cm 4.2 - 5.9 / 3.9 - 5.3 cm LV Systolic Diameter PLAX 2.4 cm IVS Diastolic Thickness 0.8 cm 0.6 - 1.0 / 0.6 - 0.9 cm IVS Systolic Thickness 1.2 cm LVPW Diastolic Thickness 0.8 cm 0.6 - 1.0 / 0.6 - 0.9 cm LVPW Systolic Thickness 1.0 cm LVOT Diameter 2.0 cm LV Ejection Fraction 2D Teich 64.3 % LV Ejection Fraction MOD 2C 54.1 % LV Ejection Fraction 2C AL 53.9 % LA Diameter 3.4 cm LA Width 3.6 cm LA Height 5.3 cm RA Width 3.7 cm RA Height 5.9 cm M-MODE LV Diastolic Diameter MM 4.7 cm 4.2 - 5.9 / 3.9 - 5.3 cm LV Systolic Diameter MM 3.8 cm LV Ejection Fraction MM Teich 42.5 % IVS Diastolic Thickness MM 0.9 cm 0.6 - 1.0 / 0.6 - 0.9 cm IVS Systolic Thickness MM 1.2 cm LVPW Diastolic Thickness MM 0.9 cm 0.6 - 1.0 / 0.6 - 0.9 cm LVPW Systolic Thickness MM 1.1 cm RV Diastolic Diameter MM 3.5 cm Aortic Annulus Diameter 3.6 cm LA Ao Ratio MM 1.0 MV E Point Septal Separation 0.6 cm DOPPLER AV Peak Velocity 141.0 cm/s LVOT Peak Velocity 93.0 cm/s AV Area Cont Eq vti 1.7 cm squared AV Area Cont Eq pk 2.1 cm squared MV Area PHT 5.0 cm squared Mitral E to A Ratio 3.9 MV E' Velocity 51.0 cm/s Mitral E to MV E' Ratio 9.5 Mitral E to LV E' Lateral Ratio 9.2 Mitral E to LV E' Septal Ratio 9.9 TR Peak Velocity 239.0 cm/s TR Peak Gradient 22.8 mmHg TV Peak E Velocity 84.0 cm/s Right Atrial Pressure 3.0 mmHg Pulmonary Artery Systolic Pressu 25.8 mmHg FINDINGS Left Ventricle Normal left ventricular cavity size. No regional wall motion abnormalities. Left ventricular ejection fraction is estimated at 60 %. In the presence of atrial fibrillation diastolic function cannot be assessed accurately. Right Ventricle The right ventricle is normal in size and function. Right Atrium Normal right atrial size. Left Atrium Mildly increased left atrial size. Mitral Valve Moderately thickened mitral valve. Moderate mitral annular calcification. No mitral valve stenosis. Mild mitral valve regurgitation. Aortic Valve Severe aortic valve calcification. Moderate aortic valve stenosis, mean gradient 4.4 mmHg, HUSAM 1.7 cm squared. No aortic valve regurgitation. Tricuspid Valve Structurally normal tricuspid valve without significant stenosis or regurgitation. Pulmonary artery systolic pressure is normal. Pulmonic Valve Structurally normal pulmonic valve without significant stenosis. There is no pulmonic regurgitation. Pericardium Normal pericardium without effusion. Aorta Normal ascending aorta dimension. CONCLUSIONS 1-Normal left ventricular cavity size. No regional wall motion abnormalities. Left ventricular ejection fraction is estimated at 60 %. In the presence of atrial fibrillation diastolic function cannot be assessed accurately. 2-Mildly increased left atrial size. 3-Severe aortic valve calcification. Moderate aortic valve stenosis, mean gradient 4.4 mmHg, HUSAM 1.7 cm squared. No aortic valve regurgitation. 4-Moderately thickened mitral valve. Moderate mitral annular calcification. No mitral valve stenosis. Mild mitral valve regurgitation. 5-There is no pericardial effusion. 6-Right atrial pressure is around 5 mm of mercury. 7-When compared to the prior echocardiogram dated 15 March 2016 there is moderate aortic stenosis now Darrion Paulino MD (Electronically Signed) Final Date: 13 February 2020 15:17 S
[2020-02-14] VITALS (83 sets, daily range): BP systolic 72–142; BP diastolic 44–110; PULSE 84–150; RESP 14–28; TEMP 36.4–37.1; O2SAT 83–97; BMI 44.8
[2020-02-14 05:31] LABS: Alanine Aminotransferase 26 U/L (0-33); Albumin Level 2.9 g/dL (3.5-5.2); Alkaline Phosphatase 187 IU/L (35-105); Aspartate Amino Transferase 18 U/L (0-32); Blood Urea Nitrogen 65 mg/dL (8-23); Calcium 9.2 mg/dL (8.5-10.5); Carbon Dioxide 23 mmol/L (22-29); Chloride 103 mmol/L (98-107); Globulin 3.7 g/dL (1.3-4.6); Glomerular Filtration Rate 71.8 mL/min (90-130); Glucose 179 mg/dL (65-115); Osmolality Calculated 305 mOsm/kg (285-295); Sodium 136 mmol/L (136-145); Total Bilirubin 0.7 mg/dL (0.15-1.2); Total Protein 6.6 g/dL (6.6-8.7)
[2020-02-14] MEDS: sodium chloride 0.9% 1,000 ML 75 ML IV (06:04)
[2020-02-14 06:51] LABS: Thyroid Stimulating Hormone 0.14 uIU/mL (0.27-4.20)
[2020-02-14 08:29] LABS: Glucose Point of Care 186 mg/dL (70-110)
--- NOTE | 2020-02-14 08:45 | P.PN_ITS ---
Subjective Subjective: Interval history: Remains on Cardizem drip at rate of 10 mg/hr, overnight Ibanez catheter placed due to urinary retention with urine output of 550 mL. Noted some episodes of hypotension overnight, currently normotensive, afebrile, on 4 L nasal cannula. Noted improvement in renal function. Has spent the day sleeping, switched to oral cardizem and drip discontinued earlier this afternoon. Called and spoke to nursing staff at [facility] for additional collateral information. Patient is oxygen dependent at baseline with a 4 L requirement, ambulates for short distances with a wheelchair, tested positive for COVID-19 approximately 2 to 3 weeks ago and was quarantined for 2 weeks. Was not retested after quarantine. Spends much of her time sleeping. Daughter present for visit this afternoon, noted increased confusion per my discussion with her which is not patient's baseline. Medications: Reviewed: Yes Medication Review Details: Active Medications Generic Name Dose Route Start Last Admin Trade Name Freq PRN Reason Stop Dose Admin Acetaminophen 650 mg 02/12/20 23:17 Tylenol PO Q6H PRN Mild/Mod Pain Or Temp >/= 101 Dextrose 25 ml 02/12/20 23:24 D50w IVP ONCE PRN hypoglycemia prot ocol Protocol Dextrose 50 ml 02/12/20 23:24 D50w IVP PRN PRN hypoglycemia prot ocol Protocol Diltiazem HCl 30 mg 02/14/20 08:45 Cardizem PO Q6H EVELIA Famotidine 20 mg 02/12/20 23:30 02/13/20 23:47 Pepcid Inj IVP 20 mg Q12H EVELIA Administration Glucagon 1 mg 02/12/20 23:24 Glucagen IM ONCE PRN Adult Acute Hypog lycemia Prot. Protocol Sodium Chloride 1,000 mls @ 75 ml s/hr 02/12/20 20:15 02/14/20 06:04 Sodium Chloride 0.9% IV 75 mls/hr .[id number] EVELIA Administration Diltiazem HCl 125 mg/ Sodium 125 mls @ 0 mls/h r 02/12/20 20:15 02/13/20 23:21 Chloride IV 10 mg/hr .Q0M EVELIA 10 mls/hr Administration Protocol Per Protocol Dextrose 500 mls @ 100 mls /hr 02/12/20 23:24 D5w IV ONCE PRN Adult Acute Hypog lycemia Prot Protocol Ceftriaxone Sodium 1,000 mg/ 50 mls @ 100 mls/ hr 02/13/20 09:00 02/13/20 09:27 Sodium Chloride IV Infused DAILY EVELIA Infusion Protocol Insulin Aspart 0 unit 02/13/20 08:00 02/14/20 08:03 Novolog SUBCUT 6 unit TIDWM EVELIA Administration Protocol Levothyroxine Sodi um 125 mcg 02/13/20 09:00 02/13/20 09:41 Synthroid PO 125 mcg DAILY EVELIA Administration Metoprolol Tartrat e 50 mg 02/13/20 09:00 02/13/20 18:03 Lopressor PO 50 mg BID EVELIA Administration Montelukast Sodium 10 mg 02/13/20 09:00 02/13/20 09:41 Singulair PO 10 mg DAILY EVELIA Administration Morphine Sulfate 2 mg 02/13/20 08:24 02/13/20 22:04 Morphine IVP 2 mg Q4H PRN Administration SEVERE PAIN Ondansetron HCl 4 mg 02/12/20 23:00 02/13/20 02:02 Zofran IVP 4 mg Q6H PRN Administration NAUSEA AND VOMITI NG No Known Allergies Allergy (Unverified 05/19/19 14:08) Vitals/I&O/Wt Last Vital Signs Temp 98.7 F 02/13/20 19:15 Pulse 131 H 02/14/20 08:00 Resp 18 02/14/20 08:00 BP 122/62 02/14/20 08:00 Pulse Ox 94 02/14/20 08:00 02/13/20 02/14/20 02/14/20 22:59 06:59 14:59 Intake Total 1575 / 2019.5 850 / 2869.5 360 / 360 Output Total 300 / 700 250 / 950 Balance 1275 / 1319.5 600 / 1919.5 360 / 360 Weight last 48 hrs Weight 118.388 kg Weight 118.388 kg Weight 76.657 kg Physical Exam Const: COMMON NORMALS: no acute distress GENERAL APPEARANCE: cooperative and comfortable NUTRITIONAL APPEARANCE: obese morbidly obese ORIENTATION/CONSCIOUSNESS: Yes oriented to place and Yes confused OTHER: - fatigued and has spent the day sleeping HENMT: COMMON NORMALS: normocephalic, atraumatic, hearing grossly normal bilaterally and moist oral mucous membranes HEAD & SCALP: normocephalic and atraumatic TEETH & GINGIVA: Yes edentulous Eye: COMMON NORMALS: Equal, round and reactive pupils present, EOMs intact bilaterally and conjunctivae normal CONJUNCTIVA: Yes conjunctivae normal PUPIL: Yes Equal, round and reactive pupils present Neck/C-Spine: COMMON NORMALS: full ROM GENERAL: Yes normal visual inspection and Yes trachea midline Resp: COMMON NORMALS: normal respiratory effort, No retractions, No use of accessory muscles and clear to auscultation bilaterally EFFORT & INSPECTION: Yes able to speak in complete sentences, Yes symmetric chest movement and No tachypneic AUSCULTATION: clear to auscultation bilaterally Cardio: COMMON NORMALS: S1 normal heart sound present and S2 normal heart sound present RATE: tachycardic RHYTHM: abnormal rhythm irregularly irregular HEART SOUNDS: S1 normal heart sound present, S2 normal heart sound present and Murmur heart sound present systolic GI: COMMON NORMALS: Normal to inspection, nondistended, normoactive bowel sounds present, Soft to palpation and non-tender INSPECTION: Yes central obesity PALPATION: Yes Soft to palpation Extremity: COMMON NORMALS: normal to inspection, no clubbing, cyanosis or edema and no pedal edema Neuro: COMMON NORMALS: moves all extremities, no focal motor deficits and no sensory deficits noted SENSORIUM/ORIENTATION: Yes oriented to place Psych: COMMON NORMALS: mental status grossly normal, Normal thought process present, cooperative, normal affect and speech normal SPEECH: Yes normal speech THOUGHT PROCESS: Normal thought process present Skin: COMMON NORMALS: no rashes or lesions noted, no jaundice, no petechiae and no mottling GENERAL SKIN EXAM: no rashes or lesions noted Urinary Catheter Management^: Ibanez: Cath Placed During This Visit: yes Reason for Continuing Indwelling Catheter: Accurate Measurement of Urinary Output in Critically Ill Patients Urinary Catheter Date of Insertion: 02/13/20 Urinary Catheter Time of Insertion: 21:00 Data : 02/13/20 02:10 02/14/20 04:24 Micro: Microbiology 02/12/20 17:59 Blood Culture - Preliminary Blood NEGATIVE TO DATE 02/12/20 18:01 Blood Culture - Preliminary Blood NEGATIVE TO DATE A&P Assessment and plan (1) Atrial fibrillation with RVR: -noted to have atrial fibrillation with RVR -weaned off cardizem drip -telemetry monitoring -continue BB; add oral cardizem for better rate control -Echo: EF=60%, no RWMA, mild MR, moderate (new since 02/2016) -troponins noted with no significant delta -[id number] score-5; needs senior living AC; will start on therapeutic lovenox for now due to initial concern for GI bleed. H/H has been stable, no overt bleeding Status: Acute (2) Acute UTI: -UA strongly indicative of infection -urine cx: GNRs, pending ID & sensitivity -on ceftriaxone -blood cx: prelim negative -noted confusion today which is likely due to infection Status: Acute (3) GI bleed: -found to be fecal occult + in ED -H/H stable; continue to monitor -on ASA 81 mg, otherwise no AC -has known hx of GERD, iron-deficiency anemia -has had prior GI workup in 2014, negative colonoscopy, noted reflux esophagitis and gastritis on EGD -no overt bleeding and H/H stable, due to atrial fibrillation, will start on therapeutic lovenox with continued monitoring of Hg Status: Acute Qualifiers: GI bleed type/associated pathology: unspecified gastrointestinal hemorrhage type Qualified Code(s): K92.2 - Gastrointestinal hemorrhage, unspecified (4) Sepsis: -secondary to UTI as noted above -afebrile, no leukocytosis Status: Resolved Qualifiers: Sepsis acute organ dysfunction status: unspecified Sepsis type: sepsis due to unspecified organism Qualified Code(s): A41.9 - Sepsis, unspecified organism (5) Acute kidney injury: -improving renal function, continue to monitor -ACEi, diuretics on hold -d/c IVF; encourage oral hydration Status: Acute (6) COPD (chronic obstructive pulmonary disease): -oxygen dependent at baseline, 3 L requirement -CXR unremarkable Status: Chronic Qualifiers: COPD type: unspecified COPD Qualified Code(s): J44.9 - Chronic obstructive pulmonary disease, unspecified (7) Diabetes: -A1c-6.8 (2019) -Accuchecks, ISS, hypoglycemia precautions -consistent carb diet when PO appropriate Status: Chronic Qualifiers: Diabetes mellitus complication status: without complication Diabetes mellitus exterminator termite insulin use: with senior living use Diabetes mellitus type: type 2 Qualified Code(s): E11.9 - Type 2 diabetes mellitus without complications; Z79.4 - custodial (current) use of insulin (8) (HFpEF) heart failure with preserved ejection fraction: -Echo: EF=60%, no RWMA, mild MR, moderate (new since 02/2016) -hold lasix due to renal impairment Status: Chronic Qualifiers: Heart failure chronicity: chronic Qualified Code(s): I50.32 - Chronic diastolic (congestive) heart failure (9) Hypothyroidism: -hx of papillary thyroid carcinoma s/p total thyroidectomy -continue levothyroxine -low TSH Status: Chronic Qualifiers: Hypothyroidism type: acquired Qualified Code(s): E03.9 - Hypothyroi dism, unspecified (10) HTN (hypertension): -continue to monitor vital signs -ACEi, diuretics on hold due to renal impairment Status: Chronic Qualifiers: Hypertension type: essential hypertension Qualified Code(s): I10 - Essential (primary) hypertension (11) Morbid obesity: -BMI-45 kg/m2 Status: Chronic Additional A&P Information -GI ppx with famotidine -DVT ppx with SCDs, therapeutic lovenox -GI soft diet -Dispo: came from [facility] -Code status: FULL code; noted DNR on [facility] paperwork, will need to clarify this Attestations 2 Medical Necessity Statement*: Patient requires hospitalization for continued management of atrial fibrillation with RVR, UTI, remains on cardizem drip pending appropriate rate control. Time Spent in Patient Care: 16 - 35 minutes (>than 50% of time spent in counselling and/or direct pt care on unit) . Coding Level of Care Code Acute Acquisition Lead for Chg Fwd Exam Comprehensive Diagnoses Atrial fibrillation with RVR I48.91 Acute UTI N39.0 GI bleed K92.2 GI bleed type/associated pathology: unspecified gastrointestinal hemorrhage type Sepsis A41.9 Sepsis acute organ dysfunction status: unspecified Sepsis type: sepsis due to unspecified organism Acute kidney injury N17.9 COPD (chronic obstructive pulmonary disease) J44.9 COPD type: unspecified COPD Diabetes E11.9; Z79.4 Diabetes mellitus complication status: without complication Diabetes mellitus senior living insulin use: with senior living use Diabetes mellitus type: type 2 (HFpEF) heart failure with preserved ejection fraction I50.32 Heart failure chronicity: chronic Hypothyroidism E03.9 Hypothyroidism type: acquired HTN (hypertension) I10 Hypertension type: essential hypertension Morbid obesity E66.01
[2020-02-14] MEDS: enoxaparin 120 mg/0.8 mL Syringe SUBCUT ×2 (09:23→20:46)
[2020-02-14] MEDS: dilTIAZem 30 mg Tablet PO ×2 (09:23→14:54)
[2020-02-14] MEDS: montelukast sodium 10 mg Tablet PO (09:23)
[2020-02-14] MEDS: levothyroxine 125 mcg Tablet PO (09:23)
[2020-02-14] MEDS: metoprolol tartrate 50 mg Tablet PO ×2 (09:23→17:38)
[2020-02-14] MEDS: cefTRIAXone 1,000 MG in sodium chloride 0.9% (plus) 50 ML 100 MG IV (10:34)
[2020-02-14 11:46] LABS: Glucose Point of Care 209 mg/dL (70-110)
[2020-02-14] MEDS: ondansetron 2 mg/ML SDV 2 mL 4 MG IVP (12:45)
[2020-02-14 17:15] LABS: Glucose Point of Care 179 mg/dL (70-110)
[2020-02-14] MEDS: famotidine 20 mg Tablet PO (17:38)
--- NOTE | 2020-02-14 19:32 | PC.NURSE ---
Shift summary: Pt slightly lethargic and remains slightly confused today. Cardizem PO started, aprox 1 hr later, Cardizem gtt stopped. Heat rate remains elevated. Dr Ferguson aware, was going to change cardizem dose. Pt has had a poor appetite today.
[2020-02-14] MEDS: dilTIAZem 30 mg Tablet 60 MG PO ×2 (19:33→23:31)
[2020-02-14] MEDS: acetaminophen 325 mg Tablet 650 MG PO (20:49)
[2020-02-14 20:55] LABS: Glucose Point of Care 217 mg/dL (70-110)
[2020-02-14] MEDS: morphine 4 mg/mL SDV 1 mL 2 MG IVP (23:31)
[2020-02-15] VITALS (48 sets, daily range): BP systolic 84–172; BP diastolic 52–132; PULSE 0–119; RESP 14–27; TEMP 36.4–36.6; O2SAT 89–98
[2020-02-15 05:02] LABS: Basophils % 0.6 %; Eosinophils # 0.4 10^3/uL (0.0-0.8); Hematocrit 38.5 % (37.0-47.0); Hemoglobin 11.9 g/dL (11.5-15.3); Lymphocytes # 1.7 10^3/uL (0.8-4.8); Lymphocytes % 24.3 %; Mean Corpuscular HGB Conc 30.9 g/dL (30.0-36.0); Mean Corpuscular Hemoglobin 24.7 pg (28.0-34.0); Mean Platelet Volume 10.7 fL (7.4-10.4); Monocytes # 1.1 10^3/uL (0.2-0.9); Monocytes % 15.3 %; Neutrophils # 3.85 10^3/uL (1.8-7.7); Neutrophils % 54.4 %; Nucleated Red Blood Cells % 0 %; Platelet Count 213 10^3/cmm (130-400); Red Blood Count 4.81 10^6/uL (4.1-5.3); Red Cell Distribution Width 19.4 % (12.1-15.1); White Blood Count 7.1 10^3/uL (4.0-10.0)
[2020-02-15] MEDS: dilTIAZem 30 mg Tablet 60 MG PO ×4 (05:24→23:58)
[2020-02-15 05:32] LABS: Anion Gap 13.4 (5-19); Blood Urea Nitrogen 40 mg/dL (8-23); Calcium 9.3 mg/dL (8.5-10.5); Carbon Dioxide 24 mmol/L (22-29); Chloride 104 mmol/L (98-107); Glomerular Filtration Rate 83.7 mL/min (90-130); Glucose 142 mg/dL (65-115); Osmolality Calculated 296 mOsm/kg (285-295); Potassium 4.4 mmol/L (3.5-5.1); Sodium 137 mmol/L (136-145)
[2020-02-15 07:37] LABS: Glucose Point of Care 179 mg/dL (70-110)
--- NOTE | 2020-02-15 07:47 | PM.PN ---
Subjective Subjective: Interval history: Remains off cardizem drip, hemodynamically stable, afebrile, on 2 L NC, had 550 mL urine output overnight. Continued improvement in renal function, stable Hg. Urine cx still growing GNRs. Awake and more alert this AM, resting in bed, oriented x 3. Medications: Reviewed: Yes Medication Review Details: Active Medications Generic Name Dose Route Start Last Admin Trade Name Freq PRN Reason Stop Dose Admin Acetaminophen 650 mg 02/12/20 23:17 02/14/20 20:49 Tylenol PO 650 mg Q6H PRN Administration Mild/Mod Pain Or Temp >/= 101 Dextrose 25 ml 02/12/20 23:24 D50w IVP ONCE PRN hypoglycemia prot ocol Protocol Dextrose 50 ml 02/12/20 23:24 D50w IVP PRN PRN hypoglycemia prot ocol Protocol Diltiazem HCl 60 mg 02/14/20 18:00 02/15/20 05:24 Cardizem PO 60 mg Q6H EVELIA Administration Enoxaparin Sodium 120 mg 02/14/20 09:00 02/14/20 20:46 Lovenox SUBCUT 120 mg Q12H EVELIA Administration Famotidine 20 mg 02/14/20 18:00 02/14/20 17:38 Pepcid Tab PO 20 mg BID EVELIA Administration Glucagon 1 mg 02/12/20 23:24 Glucagen IM ONCE PRN Adult Acute Hypog lycemia Prot. Protocol Diltiazem HCl 125 mg/ Sodium 125 mls @ 0 mls/h r 02/12/20 20:15 02/14/20 19:00 Chloride IV Infused .Q0M EVELIA Titration Protocol Per Protocol Dextrose 500 mls @ 100 mls /hr 02/12/20 23:24 D5w IV ONCE PRN Adult Acute Hypog lycemia Prot Protocol Ceftriaxone Sodium 1,000 mg/ 50 mls @ 100 mls/ hr 02/13/20 09:00 02/14/20 11:05 Sodium Chloride IV Infused DAILY EVELIA Infusion Protocol Insulin Aspart 0 unit 02/13/20 08:00 02/14/20 17:38 Novolog SUBCUT 4 unit TIDWM EVELIA Administration Protocol Insulin Aspart 0 unit 02/14/20 21:00 02/14/20 21:30 Novolog SUBCUT 6 unit BEDTIME EVELIA Administration Protocol Levothyroxine Sodi um 125 mcg 02/13/20 09:00 02/14/20 09:23 Synthroid PO 125 mcg DAILY EVELIA Administration Metoprolol Tartrat e 50 mg 02/13/20 09:00 02/14/20 17:38 Lopressor PO 50 mg BID EVELIA Administration Montelukast Sodium 10 mg 02/13/20 09:00 02/14/20 09:23 Singulair PO 10 mg DAILY EVELIA Administration Morphine Sulfate 2 mg 02/13/20 08:24 02/14/20 23:31 Morphine IVP 2 mg Q4H PRN Administration SEVERE PAIN Ondansetron HCl 4 mg 02/12/20 23:00 02/14/20 12:45 Zofran IVP 4 mg Q6H PRN Administration NAUSEA AND VOMITI NG No Known Allergies Allergy (Unverified 05/19/19 14:08) Vitals/I&O/Wt Last Vital Signs Temp 98.7 F 02/14/20 19:30 Pulse 94 02/15/20 07:42 Resp 17 02/15/20 06:00 BP 122/88 02/15/20 06:00 Pulse Ox 95 02/15/20 07:42 02/14/20 02/15/20 02/15/20 23:59 06:59 14:59 Intake Total Output Total Balance Weight last 48 hrs Weight 120.826 kg Weight 118.388 kg Physical Exam Const: COMMON NORMALS: no acute distress, patient oriented x3 and alert GENERAL APPEARANCE: cooperative and comfortable NUTRITIONAL APPEARANCE: obese morbidly obese ORIENTATION/CONSCIOUSNESS: Yes oriented to person, Yes oriented to place and Yes oriented to time OTHER: -resting quietly in bed HENMT: COMMON NORMALS: normocephalic, atraumatic, hearing grossly normal bilaterally and moist oral mucous membranes HEAD & SCALP: normocephalic and atraumatic TEETH & GINGIVA: Yes edentulous Eye: COMMON NORMALS: Equal, round and reactive pupils present, EOMs intact bilaterally and conjunctivae normal CONJUNCTIVA: Yes conjunctivae normal PUPIL: Yes Equal, round and reactive pupils present Neck/C-Spine: COMMON NORMALS: full ROM GENERAL: Yes normal visual inspection and Yes trachea midline Resp: COMMON NORMALS: normal respiratory effort, No retractions, No use of accessory muscles and clear to auscultation bilaterally EFFORT & INSPECTION: Yes able to speak in complete sentences, Yes symmetric chest movement and No tachypneic AUSCULTATION: clear to auscultation bilaterally Cardio: COMMON NORMALS: regular rate, S1 normal heart sound present and S2 normal heart sound present RATE: regular rate RHYTHM: abnormal rhythm irregularly irregular HEART SOUNDS: S1 normal heart sound present, S2 normal heart sound present and Murmur heart sound present systolic GI: COMMON NORMALS: Normal to inspection, nondistended, normoactive bowel sounds present, Soft to palpation and non-tender INSPECTION: Yes central obesity PALPATION: Yes Soft to palpation : BLADDER/KIDNEY EXAM: Yes catheter in place Catheter type (Female): urethral Extremity: COMMON NORMALS: normal to inspection, no clubbing, cyanosis or edema and no pedal edema Neuro: COMMON NORMALS: patient oriented x3, moves all extremities, no focal motor deficits and no sensory deficits noted SENSORIUM/ORIENTATION: Yes alert, Yes oriented to person, Yes oriented to place and Yes oriented to time Psych: COMMON NORMALS: mental status grossly normal, Normal thought process present, cooperative, normal affect and speech normal SPEECH: Yes normal speech THOUGHT PROCESS: Normal thought process present Skin: COMMON NORMALS: no rashes or lesions noted, no jaundice, no petechiae and no mottling NARRATIVE SKIN EXAM: -area of infiltration distal to L arm (previous IV site) GENERAL SKIN EXAM: no rashes or lesions noted Urinary Catheter Management^: Ibanez: Cath Placed During This Visit: yes Reason for Continuing Indwelling Catheter: Accurate Measurement of Urinary Output in Critically Ill Patients Urinary Catheter Date of Insertion: 02/13/20 Urinary Catheter Time of Insertion: 21:00 Data : 02/15/20 04:25 02/15/20 04:25 Micro: Microbiology 02/12/20 16:55 Urine Culture - Preliminary Urine,Clean Catch Gram Negative Rods A&P Assessment and plan (1) Atrial fibrillation with RVR: -noted to have atrial fibrillation with RVR -weaned off cardizem drip -telemetry monitoring -continue BB, oral cardizem for better rate control -Echo: EF=60%, no RWMA, mild MR, moderate (new since 02/2016) -troponins noted with no significant delta -[id number] score-5; needs remote computer terminal operator AC; on therapeutic lovenox for now due to initial concern for GI bleed. H/H has been stable, no overt bleeding Status: Acute (2) Acute UTI: -UA strongly indicative of infection -urine cx: Proteus mirabilis; sensitivity noted -on ceftriaxone (day 3) -blood cx: prelim negative -noted confusion which is likely due to infection Status: Acute (3) GI bleed: -found to be fecal occult + in ED -H/H stable; continue to monitor -on ASA 81 mg, otherwise no AC -has known hx of GERD, iron-deficiency anemia -has had prior GI workup in 2014, negative colonoscopy, noted reflux esophagitis and gastritis on EGD -no overt bleeding and H/H stable, due to atrial fibrillation, on therapeutic lovenox with continued monitoring of Hg Status: Acute Qualifiers: GI bleed type/associated pathology: unspecified gastrointestinal hemorrhage type Qualified Code(s): K92.2 - Gastrointestinal hemorrhage, unspecified (4) Sepsis: -secondary to UTI as noted above -afebrile, no leukocytosis Status: Resolved Qualifiers: Sepsis acute organ dysfunction status: unspecified Sepsis type: sepsis due to unspecified organism Qualified Code(s): A41.9 - Sepsis, unspecified organism (5) Acute kidney injury: -improving renal function, continue to monitor -resume ACEi, diuretics -d/c IVF; encourage oral hydration Status: Acute (6) COPD (chronic obstructive pulmonary disease): -oxygen dependent at baseline, 3 L requirement -CXR unremarkable Status: Chronic Qualifiers: COPD type: unspecified COPD Qualified Code(s): J44.9 - Chronic obstructive pulmonary disease, unspecified (7) Diabetes: -A1c-6.8 (2019) -Accuchecks, ISS, hypoglycemia precautions -consistent carb diet Status: Chronic Qualifiers: Diabetes mellitus complication status: without complication Diabetes mellitus senior living insulin use: with senior living use Diabetes mellitus type: type 2 Qualified Code(s): E11.9 - Type 2 diabetes mellitus without complications; Z79.4 - computer terminal operator (current) use of insulin (8) (HFpEF) heart failure with preserved ejection fraction: -Echo: EF=60%, no RWMA, mild MR, moderate (new since 02/2016) -resume lasix; renal function improved Status: Chronic Qualifiers: Heart failure chronicity: chronic Qualified Code(s): I50.32 - Chronic diastolic (congestive) heart failure (9) Hypothyroidism: -hx of papillary thyroid carcinoma s/p total thyroidectomy -continue levothyroxine -low TSH; may need adjustment of levothyroxine dose Status: Chronic Qualifiers: Hypothyroidism type: acquired Qualified Code(s): E03.9 - Hypothyroidism, unspecified (10) HTN (hypertension): -continue to monitor vital signs -resume ACEi, diuretics Status: Chronic Qualifiers: Hypertension type: essential hypertension Qualified Code(s): I10 - Essential (primary) hypertension (11) Morbid obesity: -BMI-45 kg/m2 Status: Chronic Additional A&P Information -GI ppx with famotidine -DVT ppx with SCDs, therapeutic lovenox -GI soft diet -Dispo: came from [facility] -Code status: FULL code; noted DNR on [facility] paperwork, will need to clarify this Attestations Medical Necessity Statement*: Patient requires hospitalization for continued management of atrial fibrillation with RVR, treatment of UTI; pending consistent rate control. Time Spent in Patient Care: 16 - 35 minutes (>than 50% of time spent in counselling and/or direct pt care on unit). Coding Level of Care Code Acute Society Reporter for Chg Fwd Exam Comprehensive Diagnoses Atrial fibrillation with RVR I48.91 Acute UTI N39.0 GI bleed K92.2 GI bleed type/associated pathology: unspecified gastrointestinal hemorrhage type Sepsis A41.9 Sepsis acute organ dysfunction status: unspecified Sepsis type: sepsis due to unspecified organism Acute kidney injury N17.9 COPD (chronic obstructive pulmonary disease) J44.9 COPD type: unspecified COPD Diabetes E11.9; Z79.4 Diabetes mellitus complication status: without complication Diabetes mellitus senior living insulin use: with remote computer terminal operator use Diabetes mellitus type: type 2 (HFpEF) heart failure with preserved ejection fraction I50.32 Heart failure chronicity: chronic Hypothyroidism E03.9 Hypothyroidism type: acquired HTN (hypertension) I10 Hypertension type: essential hypertension Morbid obesity E66.01
[2020-02-15] MEDS: montelukast sodium 10 mg Tablet PO (09:54)
[2020-02-15] MEDS: famotidine 20 mg Tablet PO ×2 (09:54→17:19)
[2020-02-15] MEDS: metoprolol tartrate 50 mg Tablet PO (09:54)
[2020-02-15] MEDS: levothyroxine 125 mcg Tablet PO (09:55)
[2020-02-15] MEDS: enoxaparin 120 mg/0.8 mL Syringe SUBCUT ×2 (09:55→20:44)
[2020-02-15] MEDS: cefTRIAXone 1,000 MG in sodium chloride 0.9% (plus) 50 ML 100 MG IV (09:55)
--- NOTE | 2020-02-15 10:32 | PC.SOCIAL ---
Pg 2 IMM Explained to pt's family member, Stevan, via phone, Pg 2 IMM. No questions voiced. Signed, dated, & timed a copy for chart.
--- NOTE | 2020-02-15 10:36 | PC.NURSE ---
assisted up to chair. good wt. bearing. states at senior living she uses wheel chair to get to bathroom. states she gets to wheel chair from bed w/o assist.
[2020-02-15] MEDS: polyethylene glycol 3350 Pkt 17 gm PO (11:01)
[2020-02-15] MEDS: FUROsemide 40 mg Tablet PO (11:02)
[2020-02-15] MEDS: lisinopril 20 mg Tablet PO (11:02)
[2020-02-15 11:11] LABS: Glucose Point of Care 211 mg/dL (70-110)
--- NOTE | 2020-02-15 11:18 | PC.NURSE ---
Addendum entered by Jodi Celis RN 02/15/20 11:28: wrong pt. Original Note: 1030 extubated to 4l n.c. galen. well
--- NOTE | 2020-02-15 11:21 | PC.NURSE ---
blood pressures are taken on ankle. as well as o2 sat on toe.
--- NOTE | 2020-02-15 11:34 | PC.CHAP ---
Pastoral Care Encounter/Spiritual Assessment Type of Contact [] Declined biochemical development engineer visit [] Patient/Family/Request visit [] Outpatient visit [] Follow-up visit [] Physician referral [] Code/Alert [X] Routine visit [] Staff referral [] Actively dying [] Patient sleeping [] Family support [] [] Out of room [] Palliative care [] [] Receiving care in room [] Pre-surgical visit [] Trauma [] Long length of stay [X] ICU visit [] Other: Relational/Emotional Strength [X] Patient feels connected with others/family/visitors/staff [] Distress [] Loneliness/isolation [] Abandonment Spirituality of Patient [] Person of Kelli [] Attends Quaker of their Kelli [] Believes in Prayer [] Reads Bible or Holiness materials [] There are Spiritual issues to be addressed Custom Harvester Interventions [X] Prayer [X] Active listening [] Non-anxious presence [] Spiritual/emotional support [] Crisis/trauma care [] Spiritual counseling [] Bereavement support [] Provided bereavement packet [] Provided Bible/devotional materials [] Provided toy/stuffed animal, coloring book to patient or family member [] Provided Communion [] Anointing/[place] [] Salvation [] Completed spiritual assessment [] Other: Impact on Illness or Injury [] Angry [] Fearful [] Anxious [] Often cries [] Exhaustion [] Unable to work [] Unable to attend roman catholic [] Unable to walk/stand [] Unable to read [] Unable to drive [] Unable to eat/drink [] Unable to sleep [] Unable to be with family [] Patient intubated [] Other: Summary: Pt sent over from long-term after lower extremity swelling such that she could not walk; falling; and emesis. She was sitting in a chair today and very pleasant. Her hope is to be able to walk and return to the long-term, which she enjoys because she does not like being by herself. I joined in that prayer with this patient. Time spent with patient: 5 mins
--- NOTE | 2020-02-15 13:17 | PC.NURSE ---
ambulated to bathroom with walker. tol. lim on 02. no b.m. passing gas.
[2020-02-15 16:55] LABS: Glucose Point of Care 170 mg/dL (70-110)
[2020-02-15] MEDS: sennosides-docusate Tablet 1 TAB PO (17:18)
[2020-02-15] MEDS: metoprolol tartrate 50 mg Tablet 75 MG PO (17:19)
[2020-02-15 20:41] LABS: Glucose Point of Care 172 mg/dL (70-110)
[2020-02-15] MEDS: morphine 4 mg/mL SDV 1 mL 2 MG IVP (20:43)
[2020-02-16] VITALS (39 sets, daily range): BP systolic 87–169; BP diastolic 45–116; PULSE 70–119; RESP 15–25; TEMP 36.7–37.2; O2SAT 89–100
[2020-02-16 04:41] LABS: Hemoglobin 11.3 g/dL (11.5-15.3)
[2020-02-16 05:15] LABS: Anion Gap 14.2 (5-19); Blood Urea Nitrogen 31 mg/dL (8-23); Calcium 8.9 mg/dL (8.5-10.5); Carbon Dioxide 24 mmol/L (22-29); Chloride 102 mmol/L (98-107); Glucose 143 mg/dL (65-115); Osmolality Calculated 291 mOsm/kg (285-295); Potassium 4.2 mmol/L (3.5-5.1); Sodium 136 mmol/L (136-145)
[2020-02-16] MEDS: dilTIAZem 30 mg Tablet 60 MG PO ×3 (05:56→17:26)
[2020-02-16] MEDS: FUROsemide 40 mg Tablet PO (07:50)
[2020-02-16 07:53] LABS: Glucose Point of Care 155 mg/dL (70-110)
--- NOTE | 2020-02-16 08:35 | P.PN_ITS ---
Subjective Subjective: Interval history: Hemodynamically stable, afebrile, had 550 mL urine output overnight. On 4 L NC. Sitting in chair by bedside, in good spirits, alert and oriented. Will discontinue Ibanez catheter. Remains rate controlled. Medications: Reviewed: Yes Medication Review Details: Active Medications Generic Name Dose Route Start Last Admin Trade Name Freq PRN Reason Stop Dose Admin Acetaminophen 650 mg 02/12/20 23:17 02/14/20 20:49 Tylenol PO 650 mg Q6H PRN Administration Mild/Mod Pain Or Temp >/= 101 Bisacodyl 10 mg 02/15/20 09:34 Bisac-Evac NE DAILY PRN CONSTIPATION Dextrose 25 ml 02/12/20 23:24 D50w IVP ONCE PRN hypoglycemia prot ocol Protocol Dextrose 50 ml 02/12/20 23:24 D50w IVP PRN PRN hypoglycemia prot ocol Protocol Diltiazem HCl 60 mg 02/14/20 18:00 02/16/20 05:56 Cardizem PO 60 mg Q6H EVELIA Administration Enoxaparin Sodium 120 mg 02/14/20 09:00 02/15/20 20:44 Lovenox SUBCUT 120 mg Q12H EVELIA Administration Famotidine 20 mg 02/14/20 18:00 02/15/20 17:19 Pepcid Tab PO 20 mg BID EVELIA Administration Furosemide 40 mg 02/15/20 10:35 02/16/20 07:50 Lasix PO 40 mg DAILY@0800 EVELIA Administration Glucagon 1 mg 02/12/20 23:24 Glucagen IM ONCE PRN Adult Acute Hypog lycemia Prot. Protocol Diltiazem HCl 125 mg/ Sodium 125 mls @ 0 mls/h r 02/12/20 20:15 02/14/20 19:00 Chloride IV Infused .Q0M EVELIA Titration Protocol Per Protocol Dextrose 500 mls @ 100 mls /hr 02/12/20 23:24 D5w IV ONCE PRN Adult Acute Hypog lycemia Prot Protocol Ceftriaxone Sodium 1,000 mg/ 50 mls @ 100 mls/ hr 02/13/20 09:00 02/15/20 11:01 Sodium Chloride IV Infused DAILY EVELIA Infusion Protocol Insulin Aspart 0 unit 02/13/20 08:00 02/16/20 07:50 Novolog SUBCUT 4 unit TIDWM EVELIA Administration Protocol Insulin Aspart 0 unit 02/14/20 21:00 02/15/20 20:44 Novolog SUBCUT 4 unit BEDTIME EVELIA Administration Protocol Levothyroxine Sodi um 125 mcg 02/13/20 09:00 02/15/20 09:55 Synthroid PO 125 mcg DAILY EVELIA Administration Lisinopril 20 mg 02/15/20 10:35 02/15/20 11:02 Prinivil PO 20 mg DAILY EVELIA Administration Metoprolol Tartrat e 75 mg 02/15/20 18:00 02/15/20 17:19 Lopressor PO 75 mg BID EVELIA Administration Montelukast Sodium 10 mg 02/13/20 09:00 02/15/20 09:54 Singulair PO 10 mg DAILY EVELIA Administration Morphine Sulfate 2 mg 02/13/20 08:24 02/15/20 20:43 Morphine IVP 2 mg Q4H PRN Administration SEVERE PAIN Ondansetron HCl 4 mg 02/12/20 23:00 02/14/20 12:45 Zofran IVP 4 mg Q6H PRN Administration NAUSEA AND VOMITI NG Polyethylene Glyco l 17 gm 02/15/20 09:35 02/15/20 11:01 Miralax PO 17 gm DAILY EVELIA Administration Senna/Docusate Sod ium 1 tab 02/15/20 18:00 02/15/20 17:18 Senna-S PO 1 tab BID EVELIA Administration No Known Allergies Allergy (Unverified 05/19/19 14:08) Vitals/I&O/Wt Last Vital Signs Temp 97.6 F 02/15/20 19:00 Pulse 102 H 02/16/20 08:00 Resp 22 H 02/16/20 08:00 BP 109/71 02/16/20 08:00 Pulse Ox 95 02/16/20 08:00 02/15/20 02/16/20 02/16/20 22:59 06:59 14:59 Intake Total 220 / 220 Output Total 850 / 850 200 / 1050 Balance -850 / -560 -200 / -760 220 / 220 Weight last 48 hrs Weight 119.918 kg Weight 120.826 kg Physical Exam Const: COMMON NORMALS: no acute distress, patient oriented x3 and alert GENERAL APPEARANCE: cooperative and comfortable NUTRITIONAL APPEARANCE: obese morbidly obese ORIENTATION/CONSCIOUSNESS: Yes oriented to person, Yes oriented to place and Yes oriented to time OTHER: -resting quietly in chair by bedside HENMT: COMMON NORMALS: normocephalic, atraumatic, hearing grossly normal bilaterally and moist oral mucous membranes HEAD & SCALP: normocephalic and atraumatic TEETH & GINGIVA: Yes edentulous Eye: COMMON NORMALS: Equal, round and reactive pupils present, EOMs intact bilaterally and conjunctivae normal CONJUNCTIVA: Yes conjunctivae normal PUPIL: Yes Equal, round and reactive pupils present Neck/C-Spine: COMMON NORMALS: full ROM GENERAL: Yes normal visual inspection and Yes trachea midline Resp: COMMON NORMALS: normal respiratory effort, No retractions, No use of accessory muscles and clear to auscultation bilaterally EFFORT & INSPECTION: Yes able to speak in complete sentences, Yes symmetric chest movement and No tachypneic AUSCULTATION: clear to auscultation bilaterally Cardio: COMMON NORMALS: regular rate, S1 normal heart sound present and S2 normal heart sound present RATE: regular rate RHYTHM: abnormal rhythm irregularly irregular HEART SOUNDS: S1 normal heart sound present, S2 normal heart sound present and Murmur heart sound present systolic GI: COMMON NORMALS: Normal to inspection, nondistended, normoactive bowel sounds present, Soft to palpation and non-tender INSPECTION: Yes central o besity PALPATION: Yes Soft to palpation : BLADDER/KIDNEY EXAM: Yes catheter in place Catheter type (Female): urethral Extremity: COMMON NORMALS: normal to inspection, no clubbing, cyanosis or edema and no pedal edema Neuro: COMMON NORMALS: patient oriented x3, moves all extremities, no focal motor deficits and no sensory deficits noted SENSORIUM/ORIENTATION: Yes alert, Yes oriented to person, Yes oriented to place and Yes oriented to time Psych: COMMON NORMALS: mental status grossly normal, Normal thought process present, cooperative, normal affect and speech normal SPEECH: Yes normal speech THOUGHT PROCESS: Normal thought process present Skin: COMMON NORMALS: no rashes or lesions noted, no jaundice, no petechiae and no mottling NARRATIVE SKIN EXAM: -area of infiltration distal to L arm (previous IV site) GENERAL SKIN EXAM: no rashes or lesions noted Urinary Catheter Management^: Ibanez: Cath Placed During This Visit: yes Reason for Continuing Indwelling Catheter: Accurate Measurement of Urinary Output in Critically Ill Patients Urinary Catheter Date of Insertion: 02/13/20 Urinary Catheter Time of Insertion: 21:00 Data : 11/02/20 04:10 02/16/20 04:10 Micro: Microbiology 02/12/20 16:55 Urine Culture - Final Urine,Clean Catch Proteus mirabilis A&P Assessment and plan (1) Atrial fibrillation with RVR: -noted to have atrial fibrillation with RVR -weaned off cardizem drip -telemetry monitoring -continue BB, oral cardizem for better rate control; switch to long acting cardizem in AM -Echo: EF=60%, no RWMA, mild MR, moderate (new since 02/2016) -troponins noted with no significant delta -[id number] score-5; needs fci AC; on therapeutic lovenox for now due to initial concern for GI bleed. H/H has been stable, no overt bleeding. Switch to Eliquis Status: Acute (2) Acute UTI: -UA strongly indicative of infection -urine cx: Proteus mirabilis; sensitivity noted -on ceftriaxone (day 4); switch to ciprofloxacin per sensitivity profile -blood cx: prelim negative -noted confusion which is likely due to infection Status: Acute (3) GI bleed: -found to be fecal occult + in ED -H/H stable; continue to monitor -on ASA 81 mg, otherwise no AC -has known hx of GERD, iron-deficiency anemia -has had prior GI workup in 2014, negative colonoscopy, noted reflux esophagitis and gastritis on EGD -no overt bleeding and H/H stable, due to atrial fibrillation, on therapeutic lovenox with continued monitoring of Hg Status: Acute Qualifiers: GI bleed type/associated pathology: unspecified gastrointestinal hemorrhage type Qualified Code(s): K92.2 - Gastrointestinal hemorrhage, unspecified (4) Sepsis: -secondary to UTI as noted above -afebrile, no leukocytosis Status: Resolved Qualifiers: Sepsis acute organ dysfunction status: unspecified Sepsis type: sepsis due to unspecified organism Qualified Code(s): A41.9 - Sepsis, unspecified organism (5) Acute kidney injury: -improving renal function, continue to monitor -on ACEi, diuretics -d/c IVF; encourage oral hydration Status: Acute (6) COPD (chronic obstructive pulmonary disease): -oxygen dependent at baseline, 3 L requirement -CXR unremarkable Status: Chronic Qualifiers: COPD type: unspecified COPD Qualified Code(s): J44.9 - Chronic obstructive pulmonary disease, unspecified (7) Diabetes: -A1c-6.8 (2019) -Accuchecks, ISS, hypoglycemia precautions -consistent carb diet Status: Chronic Qualifiers: Diabetes mellitus complication status: without complication Diabetes mellitus long term care phlebotomist insulin use: with long term care phlebotomist use Diabetes mellitus type: type 2 Qualified Code(s): E11.9 - Type 2 diabetes mellitus without complications; Z79.4 - halfway (current) use of insulin (8) (HFpEF) heart failure with preserved ejection fraction: -Echo: EF=60%, no RWMA, mild MR, moderate (new since 02/2016) -resume lasix; renal function improved Status: Chronic Qualifiers: Heart failure chronicity: chronic Qualified Code(s): I50.32 - Chronic diastolic (congestive) heart failure (9) Hypothyroidism: -hx of papillary thyroid carcinoma s/p total thyroidectomy -continue levothyroxine -low TSH; may need adjustment of levothyroxine dose Status: Chronic Qualifiers: Hypothyroidism type: acquired Qualified Code(s): E03.9 - Hypothyroidism, unspecified (10) HTN (hypertension): -continue to monitor vital signs -continue ACEi, diuretics Status: Chronic Qualifiers: Hypertension type: essential hypertension Qualified Code(s): I10 - Essential (primary) hypertension (11) Morbid obesity: -BMI-45 kg/m2 Status: Chronic Additional A&P Information -GI ppx with famotidine -DVT ppx with SCDs, therapeutic lovenox -GI soft diet -Dispo: came from [facility] -Code status: FULL code; noted DNR on [facility] paperwork Attestations Medical Necessity Statement*: Patient requires hospitalization for continued management of atrial fibrillation with RVR, UTI. Time Spent in Patient Care: 16 - 35 minutes (>than 50% of time spent in counselling and/or direct pt care on unit) . Coding Level of Care Code Acute [place] Strip Inspector for Chg Fwd Exam Comprehensive Diagnoses Atrial fibrillation with RVR I48.91 Acute UTI N39.0 GI bleed K92.2 GI bleed type/associated pathology: unspecified gastrointestinal hemorrhage type Sepsis A41.9 Sepsis acute organ dysfunction status: unspecified Sepsis type: sepsis due to unspecified organism Acute kidney injury N17.9 COPD (chronic obstructive pulmonary disease) J44.9 COPD type: unspecified COPD Diabetes E11.9; Z79.4 Diabetes mellitus complication status: without complication Diabetes mellitus fci insulin use: with fci use Diabetes mellitus type: type 2 (HFpEF) heart failure with preserved ejection fraction I50.32 Heart failure chronicity: chronic Hypothyroidism E03.9 Hypothyroidism type: acquired HTN (hypertension) I10 Hypertension type: essential hypertension Morbid obesity E66.01
[2020-02-16] MEDS: apixaban 5 mg Tablet PO ×2 (08:57→17:25)
[2020-02-16] MEDS: cefTRIAXone 1,000 MG in sodium chloride 0.9% (plus) 50 ML 100 MG IV (08:57)
[2020-02-16] MEDS: famotidine 20 mg Tablet PO ×2 (08:58→17:25)
[2020-02-16] MEDS: levothyroxine 125 mcg Tablet PO (08:58)
[2020-02-16] MEDS: lisinopril 20 mg Tablet PO (08:59)
[2020-02-16] MEDS: polyethylene glycol 3350 Pkt 17 gm PO (08:59)
[2020-02-16] MEDS: metoprolol tartrate 50 mg Tablet 75 MG PO ×2 (08:59→17:25)
[2020-02-16] MEDS: sennosides-docusate Tablet 1 TAB PO ×2 (09:00→17:25)
[2020-02-16] MEDS: montelukast sodium 10 mg Tablet PO (09:00)
--- NOTE | 2020-02-16 10:01 | PC.CHAP ---
Pastoral Care Encounter/Spiritual Assessment Type of Contact [] Declined revolving field assembler visit [] Patient/Family/Request visit [] Outpatient visit [] Follow-up visit [] Physician referral [] Code/Alert [] Routine visit [] Staff referral [] Actively dying [] Patient sleeping [] Family support [] [] Out of room [] Palliative care [] [] Receiving care in room [] Pre-surgical visit [] Trauma [] Long length of stay [] ICU visit [] Other: Relational/Emotional Strength [] Patient feels connected with others/family/visitors/staff [] Distress [] Loneliness/isolation [] Abandonment Spirituality of Patient [] Person of Kelli [] Attends Gnosticism of their Kelli [] Believes in Prayer [] Reads Bible or Christianity materials [] There are Spiritual issues to be addressed Wardrobe Image Consultant Interventions [x] Prayer [] Active listening [] Non-anxious presence [] Spiritual/emotional support [] Crisis/trauma care [] Spiritual counseling [] Bereavement support [] Provided bereavement packet [] Provided Bible/devotional materials [] Provided toy/stuffed animal, coloring book to patient or family member [] Provided Communion [] Anointing/Chandler [] Salvation [x] Completed spiritual assessment [] Other: Impact on Illness or Injury [] Angry [] Fearful [] Anxious [] Often cries [] Exhaustion [] Unable to work [] Unable to attend mu-ism [] Unable to walk/stand [] Unable to read [] Unable to drive [] Unable to eat/drink [] Unable to sleep [] Unable to be with family [] Patient intubated [] Other: Summary patient setting up sleeping Time spent with patient
[2020-02-16 11:47] LABS: Glucose Point of Care 198 mg/dL (70-110)
[2020-02-16 17:18] LABS: Glucose Point of Care 155 mg/dL (70-110)
[2020-02-16] MEDS: ciprofloxacin 500 mg Tablet PO (20:01)
[2020-02-16 20:31] LABS: Glucose Point of Care 181 mg/dL (70-110)
[2020-02-17] VITALS (11 sets, daily range): BP systolic 104–126; BP diastolic 64–98; PULSE 0–130; RESP 16–25; TEMP 37.1–37.4; O2SAT 93–97; BMI 46.3
[2020-02-17] MEDS: dilTIAZem 30 mg Tablet 60 MG PO (01:00)
[2020-02-17 07:25] LABS: Glucose Point of Care 144 mg/dL (70-110)
--- NOTE | 2020-02-17 08:01 | PM.DCS ---
Discharge Providers Date of Admission: 02/12/20 20:51 Date of Discharge: February 17, 2020 Attending Provider at Admission: Feliciano Wen Attending Provider at Discharge: Yocasta Ferguson MD Consults: None Primary Care Provider: Clint Elias MD Diagnoses at Discharge Discharge Diagnosis (1) Atrial fibrillation with RVR: Status: Acute Permanent problem details: -noted to have atrial fibrillation with RVR -weaned off cardizem drip -telemetry monitoring -continue BB, oral cardizem for better rate control -Echo: EF=60%, no RWMA, mild MR, moderate (new since 02/2016) -troponins noted with no significant delta -[id number] score-5; needs correction AC; on therapeutic lovenox for now due to initial concern for GI bleed. H/H has been stable, no overt bleeding. Switched to Eliquis (2) Acute UTI: Status: Acute Permanent problem details: -UA strongly indicative of infection -urine cx: Proteus mirabilis; sensitivity noted -off ceftriaxone; switched to ciprofloxacin per sensitivity profile -blood cx: negative -noted confusion which is likely due to infection, now resolved. She is back to her baseline mental status (3) GI bleed: Status: Acute Permanent problem details: -found to be fecal occult + in ED -H/H stable; continue to monitor -on ASA 81 mg, otherwise no AC -has known hx of GERD, iron-deficiency anemia -has had prior GI workup in 2014, negative colonoscopy, noted reflux esophagitis and gastritis on EGD -no overt bleeding and H/H stable, due to atrial fibrillation, on anticoagulation with continued monitoring of Hg Qualifiers: GI bleed type/associated pathology: unspecified gastrointestinal hemorrhage type Qualified Code(s): K92.2 - Gastrointestinal hemorrhage, unspecified (4) Sepsis: Status: Resolved Permanent problem details: -secondary to UTI as noted above -afebrile, no leukocytosis Qualifiers: Sepsis acute organ dysfunction status: unspecified Sepsis type: sepsis due to unspecified organism Qualified Code(s): A41.9 - Sepsis, unspecified organism (5) Acute kidney injury: Status: Acute Permanent problem details: -improving renal function, continue to monitor -on ACEi, diuretics -d/c IVF; encourage oral hydration (6) COPD (chronic obstructive pulmonary disease): Status: Chronic Permanent problem details: -oxygen dependent at baseline, 3 L requirement -CXR unremarkable Qualifiers: COPD type: unspecified COPD Qualified Code(s): J44.9 - Chronic obstructive pulmonary disease, unspecified (7) Diabetes: Status: Chronic Permanent problem details: -A1c-6.8 (2019) -Accuchecks, ISS, hypoglycemia precautions -consistent carb diet Qualifiers: Diabetes mellitus complication status: without complication Diabetes mellitus tank terminal gauger insulin use: with tank terminal gauger use Diabetes mellitus type: type 2 Qualified Code(s): E11.9 - Type 2 diabetes mellitus without complications; 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 (8) (HFpEF) heart failure with preserved ejection fraction: Status: Chronic Permanent problem details: -Echo: EF=60%, no RWMA, mild MR, moderate (new since 02/2016) -resumed lasix; renal function improved Qualifiers: Heart failure chronicity: chronic Qualified Code(s): I50.32 - Chronic diastolic (congestive) heart failure (9) Hypothyroidism: Status: Chronic Permanent problem details: -hx of papillary thyroid carcinoma s/p total thyroidectomy -continue levothyroxine -low TSH; may need adjustment of levothyroxine dose Qualifiers: Hypothyroidism type: acquired Qualified Code(s): E03.9 - Hypothyroidism, unspecified (10) HTN (hypertension): Status: Chronic Permanent problem details: -continue to monitor vital signs -continue ACEi, diuretics Qualifiers: Hypertension type: essential hypertension Qualified Code(s): I10 - Essential (primary) hypertension (11) Morbid obesity: Status: Chronic Permanent problem details: -BMI-46 kg/m2 Reason for Visit Reason for Visit: RENAL FAILURE Hospital Course Hospital Course: Patient was admitted to ICU after having been found to have A. fib with RVR as well as acute renal impairment. She required Cardizem drip for rate control as well as adjustment of her beta-haider. There was initial concern for possible GI bleed after being found to be guaiac positive in the ER. She had no further overt signs of bleeding and her hemoglobin has remained stable at which point she was covered with therapeutic anticoagulation secondary to atrial fibrillation. She was weaned off Cardizem drip and transitioned to oral Cardizem with appropriate titration of dosing to allow for appropriate rate control. Blood pressure was monitored closely and so far she has tolerated the antiarrhythmic in addition to the beta-haider. With continued stability in her hemoglobin anticoagulation was switched to Eliquis. Aspirin has been discontinued to minimize risk of bleeding. She was quite weak and disoriented initially which is likely due to underlying UTI for which she was treated with antibiotic therapy. Urine cultures have grown Proteus mirabilis and she has been switched to oral antibiotic therapy to complete her treatment course. Mental status has improved and she is back to her baseline. She has been maintained on supplemental oxygen support and is oxygen dependent at baseline with a 3 L requirement. Ibanez catheter which had initially been placed to do to need for close monitoring of intake and output has since been discontinued and she has been able to void independently without difficulty. Due to acute renal impairment diuretics were held to allow for renal recovery. Renal function has improved and diuretics have been resumed though I have discontinued hydrochlorothiazide to minimize risk of hypotension in light of addition of Cardizem. She is to return to [facility]. Adjustments have also been made to her insulin regimen as she has had better control of her blood sugars here with decreased insulin requirement. She will require appropriate follow-up with her primary care physician within 1 week. She is advised to seek medical attention immediately should any of her symptoms recur. Discharge Summary: -Patient to follow-up with her primary care physician within 1 week Physical Exam Const: COMMON NORMALS: no acute distress, patient oriented x3 and alert GENERAL APPEARANCE: cooperative and comfortable NUTRITIONAL APPEARANCE: obese morbidly obese ORIENTATION/CONSCIOUSNESS: Yes oriented to person, Yes oriented to place and Yes oriented to time OTHER: -resting quietly in bed HENMT: COMMON NORMALS: normocephalic, atraumatic, hearing grossly normal bilaterally and moist oral mucous membranes HEAD & SCALP: normocephalic and atraumatic TEETH & GINGIVA: Yes edentulous Eye: COMMON NORMALS: Equal, round and reactive pupils present, EOMs intact bilaterally and conjunctivae normal CONJUNCTIVA: Yes conjunctivae normal PUPIL: Yes Equal, round and reactive pupils present Neck/C-Spine: COMMON NORMALS: full ROM GENERAL: Yes normal visual inspection and Yes trachea midline Resp: COMMON NORMALS: normal respiratory effort, No retractions, No use of accessory muscles and clear to auscultation bilaterally EFFORT & INSPECTION: Yes able to speak in complete sentences, Yes symmetric chest movement and No tachypneic AUSCULTATION: clear to auscultation bilaterally Cardio: COMMON NORMALS: regular rate, S1 normal heart sound present and S2 normal heart sound present RATE: regular rate RHYTHM: abnormal rhythm irregularly irregular HEART SOUNDS: S1 normal heart sound present, S2 normal heart sound present and Murmur heart sound present systolic GI: COMMON NORMALS: Normal to inspection, nondistended, normoactive bowel sounds present, Soft to palpation and non-tender INSPECTION: Yes central obesity PALPATION: Yes Soft to palpation Extremity: COMMON NORMALS: normal to inspection, no clubbing, cyanosis or edema and no pedal edema Neuro: COMMON NORMALS: patient oriented x3, moves all extremities, no focal motor deficits and no sensory deficits noted SENSORIUM/ORIENTATION: Yes alert, Yes oriented to person, Yes oriented to place and Yes oriented to time Psych: COMMON NORMALS: mental status grossly normal, Normal thought process present, cooperative, normal affect and speech normal SPEECH: Yes normal speech THOUGHT PROCESS: Normal thought process present Skin: COMMON NORMALS: no rashes or lesions noted, no jaundice, no petechiae and no mottling NARRATIVE SKIN EXAM: -area of infiltration distal to L arm (previous IV site), decreased edema GENERAL SKIN EXAM: no rashes or lesions noted Urinary Catheter Management^: Ibanez: Cath Placed During This Visit: yes Reason for Continuing Indwelling Catheter: Accurate Measurement of Urinary Output in Critically Ill Patients Urinary Catheter Date of Insertion: 02/13/20 Urinary Catheter Time of Insertion: 21:00 Discharge Data Data Completed and Pending: Completed Studies During Hospitalization Category Date Time Status XR chest 1V evelio ble [id number] Stat Exams 02/12/20 15:28 Completed CV echo complete* [id number] Routine Ultrasound 02/13/20 23:21 Completed Pending at discharge Category Date Time Status Blood Culture Sta t Lab 02/12/20 17:59 Results CDIFF [Clostridio ides Difficile PCR ] Routine Lab 02/17/20 01:00 Received Labs from last 24 hours 02/17/20 02/16/20 02/16/20 07:19 20:02 17:03 POC Glucose 144 181 155 02/16/20 11:43 POC Glucose 198 Vitals: Last Vital Signs Temp 98.7 F 02/17/20 05:46 Pulse 83 02/17/20 05:46 Resp 20 H 02/17/20 05:46 BP 104/64 02/17/20 05:46 Pulse Ox 95 02/17/20 05:46 Discharge Plan Discharge Patient Disposition: Xfer [facility] Condition: Stable Prescriptions: New diltiazem HCl 240 mg Capsule,Extended Release 24hr 240 mg PO DAILY Qty: 30 RF: 0 lisinopril 20 mg Tablet 20 mg PO DAILY Qty: 30 RF: 0 ciprofloxacin HCl 500 mg Tablet 500 mg PO BID 7 Days Qty: 14 RF: 0 metoprolol tartrate 50 mg Tablet 75 mg PO BID 30 Days Qty: 90 RF: 0 Eliquis 5 mg Tablet 5 mg PO BID Qty: 60 RF: 0 Continued albuterol sulfate 90 mcg/actuation aerosol powdr breath activated 2 inh INHALATION Q6H PRN (Reason: Shortness Of Breath) RF: 0 atorvastatin 20 mg tablet 20 mg PO DAILY RF: 0 azelastine 137 mcg (0.1 %) aerosol,spray 1 spray INTRANASAL BID RF: 0 buspirone 7.5 mg tablet 7.5 mg PO BID RF: 0 ferrous sulfate 325 mg (65 mg iron) tablet 325 mg PO DAILY RF: 0 fluoxetine 40 mg capsule 40 mg PO DAILY RF: 0 fluticasone furoate 50 mcg/actuation blister with device See Rx Instructions .ROUTE .COMPLEX RF: 0 hydrocodone-acetaminophen 5-325 mg tablet 1 - 2 tab PO Q6H PRN (Reason: Pain) RF: 0 Januvia 100 mg tablet 100 mg PO DAILY RF: 0 levothyroxine 125 mcg capsule 125 mcg PO DAILY RF: 0 loperamide 2 mg capsule 2 mg PO Q6H PRN (Reason: UNKNOWN) RF: 0 metoclopramide HCl 5 mg tablet 5 mg PO DAILY RF: 0 pantoprazole 40 mg tablet,delayed release (DR/EC) 40 mg PO DAILY RF: 0 ondansetron HCl [Zofran] 4 mg tablet 4 mg PO Q8H PRN (Reason: N/V) RF: 0 montelukast [Singulair] 10 mg tablet 10 mg PO DAILY RF: 0 trazodone 50 mg tablet 25 mg PO BEDTIME RF: 0 tramadol 100 mg tablet 100 mg PO DAILY PRN (Reason: Pain) RF: 0 Zyrtec 10 mg capsule 10 mg PO DAILY PRN (Reason: SEASONAL ALLERGIES) RF: 0 acetaminophen 325 mg Tablet 650 mg PO PRN PRN (Reason: Pain) RF: 0 Milk of Magnesia 400 mg/5 mL Suspension 400 mg PO DAILY PRN (Reason: Constipation) RF: 0 Novolog U-100 Insulin aspart 100 unit/mL Solution See Rx Instructions .ROUTE .COMPLEX RF: 0 bisacodyl 10 mg Suppository 10 mg ME DAILY PRN (Reason: Constipation) RF: 0 Fleet Enema 19-7 gram/118 mL Enema 118 ml ME DAILY PRN (Reason: Constipation) RF: 0 ClearLax 17 gram/dose Powder 17 g PO DAILY RF: 0 fluticasone propionate 50 mcg/actuation spray,suspension See Rx Instructions .ROUTE .COMPLEX RF: 0 Stool Softener 100 mg Tablet 100 mg PO DAILY RF: 0 bisacodyl 5 mg Tablet 10 mg PO PRN PRN (Reason: Constipation) RF: 0 Mucus Relief 400 mg Tablet 400 mg PO BID PRN (Reason: Congestion) RF: 0 phenazopyridine 200 mg tablet 200 mg PO TID PRN (Reason: dysuria) Qty: 0 RF: 0 Changed insulin aspart U-100 [Novolog U-100 Insulin aspart] 100 unit/mL solution 10 unit SUBCUT TID Qty: 0 RF: 0 Tresiba FlexTouch U-100 100 unit/mL (3 mL) insulin pen 25 unit SUBCUT BEDTIME Qty: 0 RF: 0 Discontinued aspirin 81 mg tablet,delayed release (DR/EC) 81 mg PO DAILY RF: 0 hydrochlorothiazide 25 mg tablet 12.5 mg PO DAILY RF: 0 furosemide [Lasix] 40 mg tablet 60 mg PO DAILY RF: 0 lisinopril 40 mg tablet 40 mg PO DAILY RF: 0 dexamethasone 6 mg Tablet 6 mg PO DAILY RF: 0 metoprolol tartrate 50 mg tablet 50 mg PO BID RF: 0 Macrobid 100 mg Capsule 100 mg PO BID RF: 0 Discharge Orders: Discharge Order (Routine); Ordered 02/17/20 Ordered By: Yocasta Ferguson Referrals: Akbar Torres DO [Family Provider] - 4-7 days (Post hospital discharge follow up. Treated for UTI and atrial fibrillation with RVR. ) Discharge Diet: Diabetic Discharge Activity: Increase activity as tolerated and Oxygen as instructed Activity Restrictions/Additional Instructions: -Patient is still a high fall risk so should continue strict fall precautions on return to [facility]. She also requires assistance with all out of bed activity. -She is still oxygen dependent, oxygen can be titrated to maintain her oxygen saturation at or above 92% or for patient comfort Discharge Attestations Time Spent in Discharge Care*: greater than 30 min Specific Discharge Activities: Specific discharge activities: educating patient, educating and/or supporting family/caregiver, discussing with family independence case manager/social workers/dc planners, documenting/other paperwork and evaluating patient/reviewing data Status at Discharge: Cognitive status at discharge: cognitively intact, Behavioral status at discharge: cooperative and dependent in ADL's, Functional status at discharge: other assisted ambulation Overall status at discharge: patient is progressing back to baseline Quality Metrics Clinical Quality Measures During this hospital stay, did patient experience: None Coding Level of Care Code Acute Recruitment Consultant for [facility] Fwd Exam Comprehensive Diagnoses Atrial fibrillation with RVR I48.91 Acute UTI N39.0 GI bleed K92.2 GI bleed type/associated pathology: unspecified gastrointestinal hemorrhage type Sepsis A41.9 Sepsis acute organ dysfunction status: unspecified Sepsis type: sepsis due to unspecified organism Acute kidney injury N17.9 COPD (chronic obstructive pulmonary disease) J44.9 COPD type: unspecified COPD Diabetes E11.9; Z79.4 Diabetes mellitus complication status: without complication Diabetes mellitus tank terminal gauger insulin use: with correction use Diabetes mellitus type: type 2 (HFpEF) heart failure with preserved ejection fraction I50.32 Heart failure chronicity: chronic Hypothyroidism E03.9 Hypothyroidism type: acquired HTN (hypertension) I10 Hypertension type: essential hypertension Morbid obesity E66.01
[2020-02-17] MEDS: polyethylene glycol 3350 Pkt 17 gm PO (08:10)
[2020-02-17] MEDS: metoprolol tartrate 50 mg Tablet 75 MG PO (08:11)
[2020-02-17] MEDS: ciprofloxacin 500 mg Tablet PO (08:11)
[2020-02-17] MEDS: FUROsemide 40 mg Tablet PO (08:11)
[2020-02-17] MEDS: apixaban 5 mg Tablet PO (08:12)
[2020-02-17] MEDS: montelukast sodium 10 mg Tablet PO (08:12)
[2020-02-17] MEDS: levothyroxine 125 mcg Tablet PO (08:12)
[2020-02-17] MEDS: dilTIAZem ER (24HR) 240 mg Capsule PO (08:12)
[2020-02-17] MEDS: famotidine 20 mg Tablet PO (08:12)
[2020-02-17] MEDS: sennosides-docusate Tablet 1 TAB PO (08:12)
[2020-02-17] MEDS: lisinopril 20 mg Tablet PO (08:12)
--- NOTE | 2020-02-17 09:04 | PC.CHAP ---
Pastoral Care Encounter/Spiritual Assessment Type of Contact [] Declined senior asset manager visit [] Patient/Family/Request visit [] Outpatient visit [] Follow-up visit [] Physician referral [] Code/Alert [] Routine visit [] Staff referral [] Actively dying [x] Patient sleeping [] Family support [] [] Out of room [] Palliative care [] [] Receiving care in room [] Pre-surgical visit [] Trauma [] Long length of stay [] ICU visit [] Other: Relational/Emotional Strength [] Patient feels connected with others/family/visitors/staff [] Distress [] Loneliness/isolation [] Abandonment Spirituality of Patient [] Person of Kelli [] Attends Christian of their Kelli [] Believes in Prayer [] Reads Bible or Pentecostal materials [] There are Spiritual issues to be addressed Marketing Planning Manager Interventions [x] Prayer [] Active listening [] Non-anxious presence [] Spiritual/emotional support [] Crisis/trauma care [] Spiritual counseling [] Bereavement support [] Provided bereavement packet [] Provided Bible/devotional materials [] Provided toy/stuffed animal, coloring book to patient or family member [] Provided Communion [] Anointing/Savery [] Salvation [x] Completed spiritual assessment [] Other: Impact on Illness or Injury [] Angry [] Fearful [] Anxious [] Often cries [] Exhaustion [] Unable to work [] Unable to attend sikhism [] Unable to walk/stand [] Unable to read [] Unable to drive [] Unable to eat/drink [] Unable to sleep [] Unable to be with family [] Patient intubated [] Other: Summary patient continues to sleep upright in chair.... Time spent with patient
--- NOTE | 2020-02-17 11:30 | PC.SOCIAL ---
IMM Update Pg. 2 of IMM updated. Attempted to call both son and daughter unsuccessfully. Copy provided to patient.
--- NOTE | 2020-02-17 11:42 | PC.NURSE ---
Report called to Arti at [facility]. No further questions.
--- NOTE | 2020-02-17 13:39 | PC.NURSE ---
Patient wheeled to stretcher van by this nurse, driven by crew. Belongings with patient. Attempted to contact daughter to notify of d/c. Daughter was told earlier today that pt was up for D/C.
== END 2020-02-17 13:43 | disposition skilled nursing facility (03) | DRG 872 ==
LOC: ER 19:04 → CSU 21:03 → ICU 22:28
PROVIDERS: Emergency Medicine; Family Medicine; Nurse Practitioner Family; Admitting Provider Hospitalist; Family Provider Internal Medicine; PCP Urology; Visit Provider Family Medicine
DX: A41.9 Sepsis, unspecified organism (principal); K92.2 Gastrointestinal hemorrhage, unspecified; N39.0 Urinary tract infection, site not specified; N17.9 Acute kidney failure, unspecified; I50.32 Chronic diastolic (congestive) heart failure; Z68.42 Body mass index [BMI] 45.0-49.9, adult; J96.10 Chronic respiratory failure, unspecified whether with hypoxia or hypercapnia; I48.91 Unspecified atrial fibrillation; E03.9 Hypothyroidism, unspecified; I11.0 Hypertensive heart disease with heart failure; E66.01 Morbid (severe) obesity due to excess calories; J44.9 Chronic obstructive pulmonary disease, unspecified; E11.9 Type 2 diabetes mellitus without complications; Z79.4 Long term (current) use of insulin; Z99.81 Dependence on supplemental oxygen; K21.9 Gastro-esophageal reflux disease without esophagitis; Z85.850 Personal history of malignant neoplasm of thyroid; Z79.82 Long term (current) use of aspirin; Z86.19 Personal history of other infectious and parasitic diseases; E78.5 Hyperlipidemia, unspecified; N30.20 Other chronic cystitis without hematuria; B96.4 Proteus (mirabilis) (morganii) as the cause of diseases classified elsewhere
CPT/HCPCS: 12345; 36415; 36416; 36600; 51702; 71045; 80048; 80051; 80053; 81001; 82330; 82805; 82962; 83605; 83735; 84443; 84484; 85014; 85018; 85025; 85610; 85730; 87040; 87077; 87086; 87186; 87493; 93005; 93306; 96372; 96375; 99284; C9113; J0696; J1650; J1815; J2270; J2405; J3490; J7030; J7040

== ENCOUNTER → 2020-02-26 16:05 | Outpatient (BNVA) | payer MEDICARE, MEDICAID, SELFPAY | PROVIDERS: Family Provider Internal Medicine; PCP Urology; Visit Provider Nurse Practitioner Family | DX: N30.20 Other chronic cystitis without hematuria (principal) | CPT/HCPCS: 80053; 81003; 87077; 87086; 87184 ==

== ENCOUNTER → 2020-09-20 10:35 | Outpatient (BNVA) | payer MEDICARE, MEDICAID, SELFPAY | PROVIDERS: Family Provider Internal Medicine; PCP Urology; Visit Provider Nurse Practitioner Family | DX: N30.20 Other chronic cystitis without hematuria (principal); N39.41 Urge incontinence | CPT/HCPCS: 81003 ==

== ENCOUNTER → 2020-12-06 08:12 | Day surgery (SDC) | payer MEDICARE, MEDICAID, SELFPAY ==
[2020-12-06 08:47] VITALS: BP 137/100; PULSE 83; RESP 20; TEMP 36.8; O2SAT 98
[2020-12-06] MEDS: ferric carboxy (IVPB) 750 MG in sodium chloride 0.9% (100 ml) 100 ML 345 MG IV (08:52)
== END ==
PROVIDERS: PCP Internal Medicine; Visit Provider Internal Medicine
DX: D50.9 Iron deficiency anemia, unspecified (principal)
CPT/HCPCS: 96365; J1439

== ENCOUNTER → 2020-12-13 08:56 | Day surgery (SDC) | payer MEDICARE, MEDICAID, SELFPAY ==
[2020-12-13 09:21] VITALS: BP 124/81; PULSE 94; RESP 18; TEMP 36.1; O2SAT 95
[2020-12-13] MEDS: ferric carboxy (IVPB) 750 MG in sodium chloride 0.9% (100 ml) 100 ML 345 MG IV (09:24)
== END ==
PROVIDERS: PCP Internal Medicine; Visit Provider Internal Medicine
DX: D50.9 Iron deficiency anemia, unspecified (principal)
CPT/HCPCS: 96365; J1439

== ENCOUNTER 2020-12-31 14:46 | Outpatient (CLI) | payer MEDICARE, MEDICAID, SELFPAY ==
[2020-12-31 15:00] LABS: Basophils # 0.1 10^3/uL (0.0-0.1); Basophils % 0.5 %; Eosinophils # 0.4 10^3/uL (0.0-0.8); Eosinophils % 3.7 %; Hematocrit 44.8 % (37.0-47.0); Hemoglobin 14.4 g/dL (11.5-15.3); Lymphocytes # 1.6 10^3/uL (0.8-4.8); Lymphocytes % 13.9 %; Mean Corpuscular HGB Conc 32.1 g/dL (30.0-36.0); Mean Corpuscular Hemoglobin 26.7 pg (28.0-34.0); Mean Platelet Volume 11.8 fL (7.4-10.4); Monocytes # 1.6 10^3/uL (0.2-0.9); Monocytes % 13.9 %; Neutrophils # 7.58 10^3/uL (1.8-7.7); Neutrophils % 67.6 %; Nucleated Red Blood Cells % 0 %; Platelet Count 249 10^3/cmm (130-400); Red Cell Distribution Width 17.6 % (12.1-15.1); White Blood Count 11.2 10^3/uL (4.0-10.0)
[2020-12-31 15:21] LABS: Blood Urea Nitrogen 52 mg/dL (8-23); Calcium 9.7 mg/dL (8.5-10.5); Carbon Dioxide 30 mmol/L (22-29); Chloride 88 mmol/L (98-107); Glomerular Filtration Rate 83.5 mL/min (90-130); Glucose 187 mg/dL (65-115); Osmolality Calculated 299 mOsm/kg (285-295); Sodium 135 mmol/L (136-145)
== END 2020-12-31 14:47 | disposition home or self-care (01) ==
LOC: LAB 14:51
PROVIDERS: PCP Internal Medicine; Visit Provider Internal Medicine
DX: I50.9 Heart failure, unspecified (principal)
CPT/HCPCS: 80048; 85025

== ENCOUNTER 2021-02-03 13:19 | Outpatient (CLI) | payer MEDICARE, MEDICAID, SELFPAY ==
[2021-02-03 14:33] LABS: Anion Gap 12.9 (5-19); Blood Urea Nitrogen 8 mg/dL (8-23); Calcium 8.9 mg/dL (8.5-10.5); Carbon Dioxide 30 mmol/L (22-29); Chloride 98 mmol/L (98-107); Glomerular Filtration Rate 159.2 mL/min (90-130); Glucose 90 mg/dL (65-115); Osmolality Calculated 282 mOsm/kg (285-295); Potassium 3.9 mmol/L (3.5-5.1); Sodium 137 mmol/L (136-145)
== END 2021-02-03 13:20 | disposition home or self-care (01) ==
PROVIDERS: PCP Internal Medicine; Visit Provider Internal Medicine
DX: Z01.89 Encounter for other specified special examinations (principal)
CPT/HCPCS: 80048

== ENCOUNTER → 2021-03-21 11:36 | Outpatient (BNVA) | payer MEDICARE, MEDICAID, SELFPAY | PROVIDERS: PCP Internal Medicine; Visit Provider Urology | DX: N30.20 Other chronic cystitis without hematuria (principal) | CPT/HCPCS: 81003; 87077; 87086; 87184 ==

== ENCOUNTER 2021-08-17 11:48 | Observation (INO) | payer MEDICARE, MEDICAID, SELFPAY ==
[2021-08-17] VITALS (13 sets, daily range): BP systolic 91–148; BP diastolic 62–81; PULSE 57–73; RESP 18–24; TEMP 36.7; O2SAT 90–900; BMI 49.8; BMI 51.3
--- NOTE | 2021-08-17 11:51 | W.ED.CHESTPA ---
HPI - Chest Pain General: Chief Complaint: Chest Pain Stated Complaint: CHEST PAIN/ HEADACHE Time Seen by Provider: 08/17/21 11:50 History of Present Illness: Ms. Olsen is a 65-year-old lady with significant past medical history of diabetes mellitus, hypothyroidism, hypertension, dyslipidemia, chronic O2 dependent respiratory failure, and chronic cystitis who presents as a [place] [facility] and presents to the emergency department due to chest pain. Onset of symptoms was approximately 10 AM with exertion. She endorses left sided chest pain with a numbness tingling sensation radiating to the face and left arm. At worst intensity was 10 out of 10 and currently 6 out of 10 in intensity. Does have a history of mini heart attack however denies frequent chest pain episodes in the past. Otherwise has been at baseline health, she gets medications from the [facility]-way facility. No other specific changes in health, exacerbating, or alleviating factors identified. Did receive aspirin prior to arrival via EMS. Pertinent past history: prior [place] Onset (ago): hour(s) Timing of current episode: constant Pain location: substernal and left chest Pain radiation: left arm and jaw/teeth Pain scale (0-10): 6 Relieving factors: nothing Exacerbating factors: nothing Review of Systems General: Reports: 10 or more systems reviewed and unremarkable except in HPI and below PFSH ED PFSH: Medical History (Updated 08/19/21 @ 00:02 by ) (HFpEF) heart failure with preserved ejection fraction -Echo: EF=60%, no RWMA, mild MR, moderate (new since 02/2016) Atrial fibrillation with RVR Chest pain Chronic cystitis COPD (chronic obstructive pulmonary disease) -oxygen dependent at baseline, 3 L requirement Depression Diabetes Elevated BUN GERD (gastroesophageal reflux disease) History of ESBL E. coli infection HTN (hypertension) Hypothyroidism -hx of papillary thyroid carcinoma s/p total thyroidectomy Morbid obesity -BMI-46 kg/m2 DENN[place] (obstructive sleep apnea) Pyelonephritis TIA (transient ischemic attack) Urge incontinence Surgical History H/O cataract extraction H/O: hysterectomy S/P appendectomy S/P cholecystectomy S/P thyroidectomy Family History Father , 71 Stroke Mother , 83 CAD (coronary artery disease) Diabetes Lung disease Social History (Updated 08/17/21 @ 17:51 by Abraham Menjivar MD) Smoking and tobacco status: never smoked Alcohol intake: never Caregiver/support person: Yes Household members: other Housing: Detention Marital status: / Current occupational status: retired History of recent travel: No Physical Exam Const: COMMON NORMALS: alert GENERAL APPEARANCE: cooperative, well developed and ill appearing (Chronically) NUTRITIONAL APPEARANCE: obese HENMT: COMMON NORMALS: normocephalic and atraumatic HEAD & SCALP: normocephalic and atraumatic Eye: COMMON NORMALS: conjunctivae normal CONJUNCTIVA: Yes conjunctivae normal SCLERA: sclerae normal Neck/C-Spine: COMMON NORMALS: supple GENERAL: Yes trachea midline Resp: EFFORT & INSPECTION: Yes able to speak in complete sentences AUSCULTATION: diminished lung sounds Cardio: COMMON NORMALS: regular rate and regular rhythm RATE: regular rate RHYTHM: regular rhythm GI: COMMON NORMALS: Soft to palpation PALPATION: Yes Soft to palpation and No Tenderness to palpation present (GI) PERCUSSION: normal to percussion Extremity: GENERAL: Yes normal exam except as noted and No edema Neuro: COMMON NORMALS: moves all extremities SENSORIUM/ORIENTATION: Yes alert and No Orientation impaired Psych: COMMON NORMALS: mental status grossly normal and Normal thought process present THOUGHT PROCESS: Normal thought process present Course ED course: - Patient was seen and evaluated by me at bedside - Patient placed on cardiac monitors, IV access obtained - Initial evaluation notable for exam as above - Labs and xrays personally interpreted by me. EKG reviewed with no STEMI. -Patient received prior to arrival aspirin. Nitro and Zofran given. - Labs notable for mild leukocytosis, normal hemoglobin. D-dimer negative. Metabolic panel with similar findings to prior. Delta troponin negative. BNP mildly elevated. - Imaging notable for no lobar consolidation or pneumothorax. Head CT without evidence of intracranial hemorrhage or mass as explanation for headache - Upon serial reexamination after treatment the patient was mildly improved - Based on patient history, evaluation, and testing as interpreted the most likely cause of the patient's condition is chest pain of uncertain etiology. - The results of ED evaluation were discussed with the patient including possible disposition options. Patient is moderate risk by heart score and therefore was offered admission which she preferred in favor of outpatient management. I discussed plan for admission due to requirement for level of care not available if discharged to prevent significant worsening/deterioration. - Admitting service was contacted and Dr Menjivar with the hospitalist service agreed to admit the patient - Patient was admitted without further deterioration or significant events. Note: Click bubbles or prepopulated lerma in note writing are used for assistance with data collection and billing and are inherently more limited than narrative and other text portions of this note. Please use narrative for additional clinical history and defer to narrative/free test for any case of contradictory information. If information appears in only free text or click bubble it should be considered present or absent as reported. Please contact note speech writer for clarifications of clinical information or contradictory information. MDM is a brief summary, contradictory or erroneous seeming information should be clarified and full note should be reviewed. Vital Signs: Vital signs: Vital Signs Temperature 98.1 F 08/18/21 15:57 Pulse Rate 86 08/18/21 15:57 Respiratory Rate 18 08/18/21 15:57 Blood Pressure 107/69 08/18/21 15:57 Pulse Oximetry 94 08/18/21 15:57 MDM - Chest Pain Medical Decision Making 65-year-old lady presenting with chest pain. Delta troponin negative. No obvious cause identified on ED evaluation. Admitted for moderate risk heart score. Medical Records I reviewed the patient's medical records. Lab Data I reviewed the patient's lab results. : 08/18/21 04:34 08/18/21 04:34 Radiology Impressions Chest X-Ray 08/17/21 12:03 IMPRESSION: Stable cardiomegaly. No acute abnormality. Head CT 08/17/21 13:48 IMPRESSION: 1. No evidence of intracranial hemorrhage or mass effect. 2. Mild small vessel changes. Moderate parenchymal volume loss. 3. RIGHT maxillary sinusitis. 4. No acute intracranial findings. Laboratory Results WBC 11.8 10^3/uL (4.0-10.0) H 08/17/21 12:26 RBC 4.59 10^6/uL (4.1-5.3) 08/17/21 12:26 Hgb 12.8 g/dL (11.5-15.3) 08/17/21 12:26 Hct 39.5 % (37.0-47.0) 08/17/21 12:26 MCV 86.1 fl (81-99) 08/17/21 12:26 MCH 27.9 pg (28.0-34.0) L 08/17/21 12: MCHC 32.4 g/dL (30.0-36.0) 08/17/21 12: RDW 13.4 % (12.1-15.1) 08/17/21 12:26 Plt Count 310 10^3/cmm (130-400) 08/17/21 12: MPV 11.0 fL (7.4-10.4) H 08/17/21 12:26 Neut % (Auto) 65.0 % 08/17/21 12: Lymph % (Auto) 18.8 % 08/17/21 12: [place] % (Auto) 11.3 % 08/17/21 12: Eos % (Auto) 3.7 % 08/17/21 12: Baso % (Auto) 0.4 % 08/17/21 12: Neut # (Auto) 7.67 10^3/uL (1.8-7.7) 08/17/21 12: Lymph # (Auto) 2.2 10^3/uL (0.8-4.8) 08/17/21 12:26 [place] # (Auto) 1.3 10^3/uL (0.2-0.9) H 08/17/21 12: Eos # (Auto) 0.4 10^3/uL (0.0-0.8) 08/17/21 12: Baso # (Auto) 0.1 10^3/uL (0.0-0.1) 08/17/21 12:26 Nucleated RBC % (auto) 0 % 08/17/21 12: Nucleated RBCs # 0.0 /100WBC 08/17/21 12:26 D-Dimer 0.46 ug/mIFEU (0-0.59) 08/17/21 13:10 Sodium 136 mmol/L (136-145) 08/17/21 12:26 Potassium 3.6 mmol/L (3.5-5.1) 08/17/21 12: Chloride 90 mmol/L (98-107) L 08/17/21 12:26 Carbon Dioxide 32 mmol/L (22-29) H 08/17/21 12:26 Anion Gap 17.6 (5-19) 08/17/21 12:26 BUN 54 mg/dL (8-23) H 08/17/21 12:26 Creatinine 0.8 mg/dL (0.5-0.9) 08/17/21 12:26 GFR Calculation 71.5 mL/min (90-130) L 08/17/21 12:26 Glucose 189 mg/dL (65-115) H 08/17/21 12:26 Calculated Osmolality 302 mOsm/kg (285-295) H 08/17/21 12:26 Calcium 10.1 mg/dL (8.5-10.5) 08/17/21 12:26 Iron 58 ug/dL (37-145) 08/17/21 14:49 TIBC 264 mcg/dl 08/17/21 14:49 % Saturation 21.9 % (20-50) 08/17/21 14:49 Unsat Iron Binding 206 ug/dL (112-347) 08/17/21 14:49 Total Bilirubin 0.5 mg/dL (0.15-1.2) 08/17/21 12:26 AST 18 U/L (0-32) 08/17/21 12:26 ALT 22 U/L (0-33) 08/17/21 12:26 Alkaline Phosphatase 159 IU/L (35-105) H 08/17/21 12:26 Troponin T Baseline 16 ng/L (0-10) H 08/17/21 12:26 Troponin T 120 Minute 16.52 ng/L (0-10) H 08/17/21 14:49 Delta Troponin T 0.52 ABS# (0-10) 08/17/21 14:49 NT-Pro-B Natriuret Pep 991 pg/mL (0-125) H 08/17/21 14:49 Total Protein 7.9 g/dL (6.6-8.7) 08/17/21 12:26 Albumin 4.4 g/dL (3.5-5.2) 08/17/21 12:26 Globulin 3.5 g/dL (1.3-4.6) 08/17/21 12:26 Lipase 25 U/L (13-60) 08/17/21 12:26 TSH 0.06 uIU/mL (0.27-4.20) L 08/17/21 14:49 Free T4 1.90 ng/dL (0.82-1.77) H 08/17/21 14:49 Free T3 3.4 PG/ML (2.0-4.4) 08/17/21 14:49 Discharge Plan Discharge Patient Disposition: Placed in Observation Admit Provider: Abraham Menjivar Clinical Impression: Chest pain Discharge Diet: Cardiac and Diabetic Discharge Activity: Resume usual activity and Increase activity as tolerated Coding Level of Care Code ED Rn Supplemental for Chg Fwd Exam Comprehensive
--- NOTE | 2021-08-17 12:03 | ECG_ITS ---
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 Measurements Intervals [place] Rate: 69 P: 201 NM: 137 QRS: -5 QRSD: 153 T: -35 QT: 444 QTc: 479 Interpretive Statements SINUS RHYTHM RIGHT BUNDLE BRANCH BLOCK [120+ ms QRS DURATION, UPRIGHT V1, 40+ ms S IN I/aVL/V4/V5/V6] MARKED T-WAVE ABNORMALITY, CONSIDER ANTEROLATERAL ISCHEMIA [-0.5+ mV T-WAVE IN I/aVL/V3-V6] MODERATE T-WAVE ABNORMALITY, CONSIDER INFERIOR ISCHEMIA [-0.1+ mV T-WAVE IN II/aVF] Compared to ECG 02/12/2020 20:06:07 Atrial fibrillation no longer present T-wave abnormality still present Possible ischemia still present Electronically Signed On 08-17-2021 19:57:40 CDT by Bee Gracia M.D. [id number]
--- NOTE | 2021-08-17 12:03 | XRR_ITS ---
PROCEDURE INFORMATION: Exam: XR Chest Exam date and time: 08/17/2021 12:29 PM Age: 65 years old Clinical indication: Pain; Shortness of breath; Angina pectoris; Patient HX: HX of throat cancer; Additional info: Chest pain TECHNIQUE: Imaging protocol: XR of the chest. Views: 1 view. COMPARISON: CR XR chest 1V portable [id number] 02/12/2020 3:26 PM FINDINGS: Lungs: Unremarkable. No consolidation. Pleural spaces: Unremarkable. No pleural effusion. No pneumothorax. Heart/Mediastinum: The cardiac silhouette is enlarged but unchanged. Bones/joints: Unremarkable. XR/XR chest 1V portable [id number] IMPRESSION: Stable cardiomegaly. No acute abnormality.
[2021-08-17 12:31] LABS: Basophils # 0.1 10^3/uL (0.0-0.1); Basophils % 0.4 %; Eosinophils # 0.4 10^3/uL (0.0-0.8); Eosinophils % 3.7 %; Hematocrit 39.5 % (37.0-47.0); Hemoglobin 12.8 g/dL (11.5-15.3); Lymphocytes # 2.2 10^3/uL (0.8-4.8); Lymphocytes % 18.8 %; Mean Corpuscular HGB Conc 32.4 g/dL (30.0-36.0); Mean Corpuscular Hemoglobin 27.9 pg (28.0-34.0); Mean Corpuscular Volume 86.1 fl (81-99); Monocytes # 1.3 10^3/uL (0.2-0.9); Monocytes % 11.3 %; Neutrophils # 7.67 10^3/uL (1.8-7.7); Nucleated Red Blood Cells % 0 %; Platelet Count 310 10^3/cmm (130-400); Red Blood Count 4.59 10^6/uL (4.1-5.3); Red Cell Distribution Width 13.4 % (12.1-15.1); White Blood Count 11.8 10^3/uL (4.0-10.0)
[2021-08-17 12:50] LABS: Troponin(5th) Baseline 16 ng/L (0-10)
[2021-08-17 12:59] LABS: Alanine Aminotransferase 22 U/L (0-33); Albumin Level 4.4 g/dL (3.5-5.2); Alkaline Phosphatase 159 IU/L (35-105); Anion Gap 17.6 (5-19); Aspartate Amino Transferase 18 U/L (0-32); Blood Urea Nitrogen 54 mg/dL (8-23); Calcium 10.1 mg/dL (8.5-10.5); Carbon Dioxide 32 mmol/L (22-29); Chloride 90 mmol/L (98-107); Globulin 3.5 g/dL (1.3-4.6); Glomerular Filtration Rate 71.5 mL/min (90-130); Glucose 189 mg/dL (65-115); Lipase 25 U/L (13-60); NT Pro B Type Natriuretic Pept 951 pg/mL (0-125); Osmolality Calculated 302 mOsm/kg (285-295); Potassium 3.6 mmol/L (3.5-5.1); Sodium 136 mmol/L (136-145); Total Bilirubin 0.5 mg/dL (0.15-1.2); Total Protein 7.9 g/dL (6.6-8.7)
[2021-08-17 13:29] LABS: D Dimer 0.46 ug/mIFEU (0-0.59)
--- NOTE | 2021-08-17 13:48 | CT_ITS ---
WS: [id number] CT HEAD TECHNIQUE: Noncontrast CT of the head obtained from the skullbase to the vertex. CLINICAL INFORMATION: headache, tingling COMPARISON: CT July 2014 DLP: 803.[address] scans at [facility] use at least one of these dose optimization techniques: automated e xposure control; mA and/or kV adjustment per patient size (includes targeted exams where dose is matc hed to clinical indication); or iterative reconstruction. FINDINGS: No evidence of intracranial hemorrhage or mass effect. Ventricular system and basal cisterns are rubio nt. Mild small vessel changes with moderate parenchymal volume loss. Intracranial vascular calcificat ion. Prominent perivascular space or chronic lacunar infarct RIGHT basal ganglia. Chronic lacunar inf arct RIGHT caudate. No extra-axial fluid collections. No evidence of mass or mass effect. Inspissated secretions the RIGHT maxillary sinus with air-fluid level compatible with sinusitis. Mast oid air cells are well aerated. Normal posterior nasopharynx. CT/CT head wo con* [id number] IMPRESSION: 1. No evidence of intracranial hemorrhage or mass effect. 2. Mild small vessel changes. Moderate parenchymal volume loss. 3. RIGHT maxillary sinusitis. 4. No acute intracranial findings.
--- NOTE | 2021-08-17 14:03 | ECG_ITS ---
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 Measurements Intervals [place] Rate: 66 P: 207 NM: 147 QRS: 186 QRSD: 153 T: 225 QT: 433 QTc: 454 Interpretive Statements SINUS RHYTHM INTRAVENTRICULAR CONDUCTION DELAY [130+ ms QRS DURATION] Right bundle branch block RIGHT VENTRICULAR HYPERTROPHY [SOME/ALL OF: PROMINENT R IN V1, LATE TRANSITION, RAD, FABY, SSS] ST and T wave changes, consider anterolateral ischemia Compared to ECG 08/17/2021 12:01:49 Intraventricular conduction delay now present Atrial abnormality now present Right ventricular hypertrophy now present Electronically Signed On 08-18-2021 11:01:26 CDT by Luigi Jon M.D. [id number]
[2021-08-17 15:18] LABS: Troponin 5 2HR 16.52 ng/L (0-10)
[2021-08-17 15:21] LABS: Troponin 5 2HR Delta 0.52 ABS# (0-10)
--- NOTE | 2021-08-17 17:35 | PC.PHAR ---
pt is from [facility]-shakira nina nurse from [facility] states the pt took am meds
--- NOTE | 2021-08-17 17:48 | PM.HP ---
Providers/Chief Complaint Admitting Physician: Abraham Menjivar MD Primary Care Provider: Akbar Torres DO Chief Complaint: CHEST PAIN/ HEADACHE History of Present Illness Madelyn Olsen is a 65 year old female half-way resident, past medical history of hypertension, type 2 diabetes mellitus, COPD, atrial fibrillation on chronic anticoagulation with Eliquis, history of COVID-19 and a possible history of myocardial infarction presents to the ER today after complaining of having central chest pain radiating to left arm along with nausea and headache today morning while she was resting. As per the patient and patient's daughter she has been having occasional episodes of dizziness on standing up for last 1 week when her blood sugars and blood pressures have been checked and have been within normal limits. Denies any changes in medications. Does not have any chest pain currently. Blood work in the ER showed a white count of 11.8, hemoglobin of 12.8, D-dimer 0.4, sodium 136, creatinine of 0.8, BUN of 54, alkaline phosphatase of 159, baseline troponin of 16 with a delta of 0.5 in 2 hours, proBNP of 951 Review of Systems General: Reports: 10 or more systems reviewed and unremarkable except in HPI and below Const: Denies: fever(s), chills, body aches, change in appetite, change in weight, malaise, night sweats, diaphoresis, change in sleep pattern, daytime sleepiness or snoring Eyes: Denies: change in vision, blurry vision, photophobia, eye discomfort or eye discharge ENMT: Denies: throat pain, enlarged tonsils, hoarseness, mouth pain, oral sores, dry mouth, tinnitus, nasal congestion or post nasal drip Card: Denies: chest pain, palpitations, irregular heart rhythm, edema, swelling of feet/ankles, lightheadedness, syncope, pre-syncope, dyspnea on exertion, orthopnea, leg pain with exertion or acrocyanosis Resp: Denies: dyspnea, productive cough, non-productive cough, wheezing, stridor, pain on inspiration, change in phlegm color, hemoptysis or chest congestion GI: Denies: abdominal pain, nausea, vomiting, hematemesis, coffee ground emesis, dysphagia, heartburn, diarrhea, constipation, bloating, GI cramping, change in bowel habits, pain on defecation, hematochezia or melena : Denies: flank pain, dysuria, urinary frequency, urinary urgency, urinary hesitancy, nocturia or hematuria Musc: Denies: neck pain, back pain, extremity pain, joint pain, joint swelling, joint redness, joint stiffness or limited range of motion Neuro: Denies: headache(s), numbness in extremities, weakness in extremities, sensory changes, lack of coordination, difficulty walking, frequent falls, dizziness, vertigo, confusion, Slurred speech present, difficulty communicating thoughts or seizure-like activity Psych: Denies: anxiety, depression, mood swings, panic attacks, hopelessness or irritability Endo: Denies: polyuria, polydipsia, tired all the time, cold intolerance, excessive sweating, flushing or heat intolerance Osiel/Lymph: Denies: easy bruising or easy bleeding All/Imm: Denies: tongue swelling, facial swelling or acute wheezing Medications/Allergies Home Medications Medication Instructions Recorded Confirmed Last Taken Type albuterol sulfate 90 mcg/actuation 2 inh INHALATION Q4H PRN 12/31/19 08/17/21 12/12/20 History breath activated powder inhaler atorvastatin 20 mg tablet 20 mg PO BEDTIME@12/31/19 08/17/21 08/16/21 History azelastine 137 mcg (0.1 %) nasal 2 spray INTRANASAL BID 12/31/19 08/17/21 12/12/20 History spray aerosol ferrous sulfate 325 mg (65 mg 325 mg PO .ON MON,WED, Sun12/31/19 08/17/21 12/12/20 History iron) tablet pantoprazole 40 mg tablet,delayed 40 mg PO DAILY@12/31/19 08/17/21 08/17/21 History release acetaminophen 325 mg tablet 650 mg PO Q4H PRN 02/12/20 08/17/21 12/12/20 History bisacodyl 10 mg rectal suppository 10 mg OH DAILY PRN 02/12/20 08/17/21 12/12/20 History bisacodyl 5 mg tablet 10 mg PO DAILY PRN 02/12/20 08/17/21 12/12/20 History guaifenesin 400 mg tablet (Mucus 400 mg PO BID PRN 02/12/20 08/17/21 12/12/20 History Relief) magnesium hydroxide 400 mg/5 mL 30 ml PO DAILY PRN 02/12/20 08/17/21 12/12/20 History oral suspension (Milk of Magnesia) polyethylene glycol 3350 17 17 g PO DAILY 02/12/20 08/17/21 12/12/20 History gram/dose oral powder (ClearLax) sodium phosphates 19 gram-7 118 ml OH DAILY PRN 02/12/20 08/17/21 12/12/20 History gram/118 mL enema (Fleet Enema) methenamine hippurate 1 gram tablet 1 g PO BID #60 tab 02/26/20 08/17/21 08/17/21 07:00 Rx metoprolol tartrate 25 mg tablet 75 mg PO BID 09/20/20 08/17/21 08/17/21 07:00 History bumetanide 1 mg tablet 1 mg PO DAILY@03/21/21 08/17/21 08/16/21 History oxybutynin chloride 5 mg tablet 5 mg PO TID PRN 03/21/21 08/17/21 Unknown History apixaban 5 mg tablet (Eliquis) 5 mg PO BID@08/17/21 08/17/21 08/17/21 07:00 History ascorbic acid (vitamin C) 500 mg 1,000 mg PO BID 08/17/21 08/17/21 08/17/21 07:00 History tablet (Vitamin C) bumetanide 2 mg tablet 2 mg PO DAILY@08/17/21 08/17/21 08/17/21 History cetirizine 10 mg tablet (Zyrtec) 10 mg PO DAILY PRN 08/17/21 08/17/21 Unknown History diclofenac sodium 1 % topical gel See Rx Instructions .ROUTE .COMPLEX 08/17/21 08/17/21 Unknown History diltiazem HCl 240 mg 240 mg PO DAILY@08/17/21 08/17/21 08/17/21 07:00 History capsule,extended release 24 hr docusate sodium 100 mg capsule 100 mg PO DAILY@08/17/21 08/17/21 08/17/21 History (Stool Softener) fluoxetine 10 mg capsule 10 mg PO DAILY@08/17/21 08/17/21 08/17/21 07:00 History fluticasone 250 mcg-salmeterol 50 1 inh INHALATION BID 08/17/21 08/17/21 Unknown History mcg/dose blistr powdr for inhalation (Advair Diskus) gabapentin 300 mg capsule 300 mg PO BEDTIME@08/17/21 08/17/21 Unknown History insulin aspart U-100 100 unit/mL 38 unit SUBCUT TID 08/17/21 08/17/21 08/17/21 History (3 mL) subcutaneous pen (Novolog Flexpen U-100 Insulin aspart) insulin aspart U-100 100 unit/mL See Rx Instructions .ROUTE .COMPLEX 08/17/21 08/17/21 Unknown History subcutaneous solution (Novolog U-100 Insulin aspart) insulin degludec 100 unit/mL (3 82 unit SUBCUT BEDTIME 08/17/21 08/17/21 Unknown History mL) subcutaneous pen (Tresiba FlexTouch U-100 insulin) lanolin alcohols-mineral 1 applic TOPICAL DAILY 08/17/21 08/17/21 Unknown History oil-w.petrolatum-ceresin topical cream (Eucerin) levothyroxine 200 mcg tablet 200 mcg PO DAILY@08/17/21 08/17/21 08/17/21 History levothyroxine 50 mcg tablet 50 mcg PO DAILY@08/17/21 08/17/21 08/17/21 History lisinopril 20 mg tablet 20 mg PO BEDTIME@08/17/21 08/17/21 08/16/21 History metoclopramide HCl 10 mg tablet 10 mg PO BID 08/17/21 08/17/21 08/17/21 07:00 History metolazone 5 mg tablet 5 mg PO .ON MON AND TH08/17/21 08/17/21 Unknown History naloxone 0.4 mg/mL injection See Rx Instructions .ROUTE .COMPLEX 08/17/21 08/17/21 Unknown History solution nitrofurantoin 100 mg PO BID 08/17/21 08/17/21 08/17/21 History monohydrate/macrocrystals 100 mg capsule ondansetron HCl 4 mg tablet 4 - 8 mg PO Q6H PRN 08/17/21 08/17/21 Unknown History potassium chloride 20 mEq 40 meq PO BID 08/17/21 08/17/21 08/17/21 07:00 History tablet,extended release(part/cryst) Allergies Allergy/AdvReac Type Severity Reaction Status Date / Time No Known Allergies Allergy Verified 03/21/21 11:02 PFSH Acute PFSH: Medical History (Updated 08/17/21 @ 17:52 by Abraham Menjivar MD) (HFpEF) heart failure with preserved ejection fraction -Echo: EF=60%, no RWMA, mild MR, moderate (new since 02/2016) Atrial fibrillation with RVR Chronic cystitis COPD (chronic obstructive pulmonary disease) -oxygen dependent at baseline, 3 L requirement Depression Diabetes Elevated BUN GERD (gastroesophageal reflux disease) HTN (hypertension) Hypothyroidism -hx of papillary thyroid carcinoma s/p total thyroidectomy Morbid obesity -BMI-46 kg/m2 DENN[place] (obstructive sleep apnea) Pyelonephritis TIA (transient ischemic attack) Urge incontinence Surgical History H/O cataract extraction H/O: hysterectomy S/P appendectomy S/P cholecystectomy S/P thyroidectomy Family History Father , 71 Stroke Mother , 83 CAD (coronary artery disease) Diabetes Lung disease Social History (Updated 08/17/21 @ 17:51 by Abraham Menjivar MD) Smoking and tobacco status: never smoked Alcohol intake: never Caregiver/support person: Yes Household members: other Housing: [facility] Marital status: / Current occupational status: retired History of recent travel: No Vitals/I&O/Wt Last Vital Signs Pulse 63 08/17/21 15:58 Resp 24 H 08/17/21 15:58 BP 148/66 08/17/21 15:58 Pulse Ox 94 08/17/21 15:58 Weight last 48 hrs Weight 119.748 kg Physical Exam Narrative: General: No acute distress, AO x3, morbidly obese, chronically sick appearing HEENT: PERRLA, pupils bilaterally equal and reactive Chest: Normal vesicular breath sounds, no added sounds, equal good air entry bilaterally CVS: S1-S2 irregularly irregular, no tachycardia, no gallops, no rubs Abdomen: Soft, nontender, no organomegaly, bowel sounds present Neuro: No focal deficits, no facial deformity, AO x3, power 5/5 in all limbs Data : 08/17/21 12:26 08/17/21 12:26 A&P Assessment and plan (1) Chest pain: Status: Acute (2) Atrial fibrillation with RVR: Status: Acute (3) (HFpEF) heart failure with preserved ejection fraction: Status: Acute Qualifiers: Heart failure chronicity: chronic Qualified Code(s): I50.32 - Chronic diastolic (congestive) heart failure (4) COPD (chronic obstructive pulmonary disease): Status: Acute Qualifiers: COPD type: unspecified COPD Qualified Code(s): J44.9 - Chronic obstructive pulmonary disease, unspecified (5) Diabetes: Status: Acute Qualifiers: Diabetes mellitus type: type 2 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: with computer terminal operator use Diabetes mellitus complication status: without complication Qualified Code(s): E11.9 - Type 2 diabetes mellitus without complications; Z79.4 - long-term (current) use of insulin (6) HTN (hypertension): Status: Acute Qualifiers: Hypertension type: essential hypertension Qualified Code(s): I10 - Essential (primary) hypertension (7) Hypothyroidism: Status: Acute Qualifiers: Hypothyroidism type: acquired Qualified Code(s): E03.9 - Hypothyroidism, unspecified (8) GERD (gastroesophageal reflux disease): Status: Acute Plan Chest pain under evaluation: Patient does have significant risk factors including diabetes mellitus, morbid obesity, hypertension, low activity along with family history of CAD in father. Cycle troponins. Nitro as needed. Check echocardiogram. Check A1c, lipid panel. Aspirin 81 mg daily. Continue home dose of statin. Continue home dose of metoprolol for now. Will request Lexiscan stress test in a.m. N.p.o. after midnight. Atrial fibrillation: Rate controlled. Continue with home dose of Cardizem, metoprolol. Continue with Eliquis 5 mg twice daily. No signs of anemia. Congestive heart failure: Diastolic. Seems euvolemic. On high-dose of Bumex and metolazone at home. Most likely patient does not need aggressive diuresis given only diastolic heart failure. For now we will hold off on diuretics. Dizziness: Could be secondary to orthostatic hypotension given multiple diuretics. For now hold off. Normal saline at 50 cc/h. Check orthostatic blood pressures. Hypothyroidism: Check TSH. Continue with home dose of levothyroxine. Check lipid panel, A1c, iron panel, proBNP, TSH, urinalysis. Type 2 diabetes mellitus: Check A1c. Cardiac carb consistent diet. Insulin sliding scale at high-dose protocol before meals and at bedtime. Full code. Cardiac carb consistent diet. N.p.o. after midnight. Eliquis suffice for DVT prophylaxis. Protonix for PUD prophylaxis. 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
--- NOTE | 2021-08-17 18:03 | ECG_ITS ---
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 Measurements Intervals [place] Rate: P: HI: QRS: QRSD: T: QT: QTc: Interpretive Statements Sinus rhythm Right bundle branch block ST and T wave changes, consider anterior ischemia ATYPICAL ECG WARNING: DATA QUALITY MAY AFFECT INTERPRETATION Compared to ECG 08/17/2021 14:22:12 Atrial abnormality no longer present Right ventricular hypertrophy no longer present Electronically Signed On 08-18-2021 11:02:11 CDT by Luigi Jon M.D. [id number]
[2021-08-17 18:37] LABS: Thyroid Stimulating Hormone 0.06 uIU/mL (0.27-4.20)
--- NOTE | 2021-08-17 18:44 | ECG_ITS ---
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 Interpretive Statements NAME OF STUDY: LEXISCAN SESTAMIBI STRESS TEST INDICATION: [Unstable Angina] Procedure: At the baseline, the blood pressure was 123/69 mmHg with a heart rate of 65bpm. The electrocardiogram showed normal sinus rhythm, right bundle branch block with normal ST and T's. The Lexiscan was infused over a period of 20 seconds. A total of 0.4 mg of Lexiscan was infused. The stress phase was continued for a total of 5 minutes. Heart rate was at the end of stress phase was 72 bpm and a blood pressure of 113/69 mmHg. The EKG at the peak infusion revealed since normal sinus rhythm with no significant ST-T wave changes. Sestamibi was injected 20 seconds after the Lexiscan infusion. Blood pressure at the end of recovery phase was 103/64 mmHg with a heart rate of 89 bpm. Conclusion: 1. Normal EKG response to Lexiscan infusion 2. No Lexiscan induced chest pain or cardiac arrhythmia. 3. Normal blood pressure and heart rate response. 4. Sestamibi/sestamibi perfusion scan pending; see separate report. Electronically Signed On 09-04-2021 19:41:41 CDT by Estuardo Gottlieb M.D. [id number]
[2021-08-17 19:18] LABS: Urine Color Straw (Yellow)
[2021-08-17 19:19] LABS: Add Urine Microscopic? YES; Bilirubin Urine Neg (Negative); Blood Urine Neg (Negative); Glucose Urine UA Norm (Normal); Ketones Urine Negative (Negative); Leukocyte Esterase Urine 2+ (Negative); Nitrate Urine Positive (Negative); Protein Urine Neg (Negative); RBC Urine 0-4 /hpf (0-2); Specific Gravity, Urine 1.005 (1.005-1.030); Squamous Epithelial Cell Urine 0-4 /hpf (0-5); Urine Appearance SL Hazy (CLEAR); Urobilinogen Urine Norm (Negative); WBC Urine 25-40 /hpf (0-5); pH Urine 5 (5-7)
[2021-08-17 19:20] LABS: Add Urine Culture? Yes; Bacteria Urine 4+ /hpf
[2021-08-17] MEDS: apixaban 5 mg Tablet PO (19:31)
[2021-08-17] MEDS: metoprolol tartrate 25 mg Tablet 75 MG PO (19:31)
--- NOTE | 2021-08-17 19:35 | PC.NURSE ---
ADMIT NOTE Pt was brought to floor from ER at 1850. Is alert and oriented. Denies chest pain. Says earlier pain started in center of chest and had radiation up into left side of face and left arm. O2 in place at 4l per NC. Says her baseline is 3l. Reports SOB with exertion. Is quite obese. Discussed order for stress test for tomorrow. Taught on pt not having caffeine and only water after midnight. Says she is hungry and her daughter is bringing her some food. Says sandwich in the ER just not enough. field evidence technician applied. Starting IV fluids at 50ml/hr rate.
[2021-08-17] MEDS: sodium chloride 0.9% 1,000 ML 50 ML IV (19:40)
[2021-08-17 20:31] LABS: Iron 58 ug/dL (37-145); Percent Saturation 21.9 % (20-50); Total Iron Binding Capacity 264 mcg/dl; Unsaturated Iron Binding 206 ug/dL (112-347)
[2021-08-17 20:39] LABS: Glucose Point of Care 264 mg/dL (70-110)
[2021-08-17] MEDS: insulin lispro 100 unit/1 mL SUBCUT (20:46)
[2021-08-17] MEDS: trazodone 50 mg Tablet 25 MG PO (20:46)
--- NOTE | 2021-08-17 20:46 | PC.NURSE ---
While completing admission assessment noted a black wallet with patients belongings. Patient stated there is no money in it . Approximately 15 mins later her daughter Madelyn called inquiring about her lost wallet. Patient was once again asked about the wallet to which she replied It [id number]'t mine and I don't know whose it is. The wallet belonged to her daughter and was picked up by her daughter at 2020. Nadine CRUZ witnessed.
[2021-08-17 22:12] LABS: NT Pro B Type Natriuretic Pept 991 pg/mL (0-125)
[2021-08-17] MEDS: piperacillin-tazobactam 3.375 GM in sodium chloride 0.9% (plus) 50 ML IV (22:51)
[2021-08-17 23:00] LABS: T3 Free 3.4 PG/ML (2.0-4.4)
[2021-08-18] VITALS (7 sets, daily range): BP systolic 99–141; BP diastolic 61–83; PULSE 64–90; RESP 18–20; TEMP 36.7–37.3; O2SAT 93–99
--- NOTE | 2021-08-18 00:20 | USCV_ITS ---
Madelyn Olsen Age: 65 Gender: F : 1955 Exam Date: 08/18/2021 01:37 Ordering Phys: Abraham Menjivar MD Technologist: NAA Exam Location: [facility] [place] Indication: CHF BP: / HR: 68 Rhythm: Sinus Technical Quality: Suboptimal MEASUREMENTS (Male / Female) Normal Values 2D ECHO LV Diastolic Diameter PLAX 4.7 cm 4.2 - 5.9 / 3.9 - 5.3 cm LV Systolic Diameter PLAX 2.9 cm IVS Diastolic Thickness 1.2 cm 0.6 - 1.0 / 0.6 - 0.9 cm IVS Systolic Thickness 1.6 cm LVPW Diastolic Thickness 1.2 cm 0.6 - 1.0 / 0.6 - 0.9 cm LVPW Systolic Thickness 2.2 cm LVOT Diameter 1.6 cm LV Ejection Fraction 2D Teich 69.0 % LV Ejection Fraction MOD 2C 80.2 % LV Ejection Fraction 2C AL 80.8 % LA Diameter 4.3 cm LA Width 3.6 cm LA Height 7.3 cm RA Width 4.4 cm RA Height 6.0 cm Aorta at Sinotubular Diameter 2.1 cm M-MODE Aortic Annulus Diameter 3.0 cm LA Ao Ratio MM 1.5 MV E Point Septal Separation 0.3 cm DOPPLER AV Peak Velocity 153.0 cm/s LVOT Peak Velocity 63.0 cm/s AV Area Cont Eq vti 0.8 cm squared AV Area Cont Eq pk 0.9 cm squared MV Peak Velocity 205.0 cm/s MV Area PHT 4.1 cm squared MV E' Velocity 49.5 cm/s Mitral E to MV E' Ratio 10.8 Mitral E to LV E' Lateral Ratio 11.8 Mitral E to LV E' Septal Ratio 10.0 TR Peak Velocity 281.2 cm/s TR Peak Gradient 31.6 mmHg TR Mean Velocity 226.1 cm/s TR Mean Gradient 28.7 mmHg TR Velocity Time Integral 124.0 cm Right Atrial Pressure 10.0 mmHg Pulmonary Artery Systolic Pressu 41.6 mmHg PV Peak Velocity 121.0 cm/s RV Acceleration Time 0.1 s RV Ejection Time 0.3 s RV AcT/ET 0.3 FINDINGS Left Ventricle Normal left ventricular size, systolic function and wall thickness, with no regional wall motion abnormalities. Grade I/IV diastolic dysfunction (abnormal relaxation filling pattern), normal to mildly elevated filling pressures. Left ventricular ejection fraction is estimated at 60 %. Right Ventricle Normal right ventricular size and systolic function. Mild pulmonary hypertension, RVSP 41.6 mmHg. Right Atrium Mildly increased right atrial size. Left Atrium Mildly increased left atrial size. Mitral Valve Structurally normal mitral valve. Mild mitral valve regurgitation. Aortic Valve The valve is very poorly seen. There is very little calcium in the valve. Calculations are not consistent. The mean gradient across the valve is only 4.4 mmHg. However the computer calculated valve area at 0.89 cm squared which is incorrect. Visually the valve is no more than mildly stenosed. There is no aortic insufficiency. Tricuspid Valve Structurally normal tricuspid valve. Moderate tricuspid valve regurgitation. Pulmonic Valve Pulmonic valve not well visualized. Pericardium Normal pericardium without effusion. Aorta Normal ascending aorta dimension. CONCLUSIONS Normal left ventricular size, systolic function and wall thickness, with no regional wall motion abnormalities. Grade I/IV diastolic dysfunction (abnormal relaxation filling pattern), normal to mildly elevated filling pressures. Left ventricular ejection fraction is estimated at 60 %. Normal right ventricular size and systolic function. Mild pulmonary hypertension, RVSP 41.6 mmHg. Mildly increased right atrial size. Mildly increased left atrial size. Structurally normal mitral valve. Mild mitral valve regurgitation. The valve is very poorly seen. There is very little calcium in the valve. Calculations are not consistent. The mean gradient across the valve is only 4.4 mmHg. However the computer calculated valve area at 0.89 cm squared which is incorrect. Visually the valve is no more than mildly stenosed. There is no aortic insufficiency. Dr. Luigi Jon MD (Electronically Signed) Final Date: 18 Aug 2021 10:30 S
[2021-08-18 05:51] LABS: Basophils # 0.1 10^3/uL (0.0-0.1); Basophils % 0.5 %; Eosinophils # 0.4 10^3/uL (0.0-0.8); Eosinophils % 3.1 %; Hematocrit 40.1 % (37.0-47.0); Hemoglobin 12.2 g/dL (11.5-15.3); Lymphocytes # 1.9 10^3/uL (0.8-4.8); Lymphocytes % 16.4 %; Mean Corpuscular HGB Conc 30.4 g/dL (30.0-36.0); Mean Corpuscular Hemoglobin 27.8 pg (28.0-34.0); Mean Corpuscular Volume 91.3 fl (81-99); Mean Platelet Volume 10.9 fL (7.4-10.4); Monocytes # 1.3 10^3/uL (0.2-0.9); Monocytes % 11.3 %; Neutrophils # 7.75 10^3/uL (1.8-7.7); Neutrophils % 68.2 %; Nucleated Red Blood Cells % 0 %; Platelet Count 274 10^3/cmm (130-400); Red Blood Count 4.39 10^6/uL (4.1-5.3); Red Cell Distribution Width 13.7 % (12.1-15.1); White Blood Count 11.4 10^3/uL (4.0-10.0)
[2021-08-18 06:11] LABS: Glucose Point of Care 243 mg/dL (70-110)
[2021-08-18 06:15] LABS: Alanine Aminotransferase 19 U/L (0-33); Albumin Level 3.6 g/dL (3.5-5.2); Alkaline Phosphatase 155 IU/L (35-105); Anion Gap 18.5 (5-19); Aspartate Amino Transferase 16 U/L (0-32); Blood Urea Nitrogen 46 mg/dL (8-23); Calcium 9.8 mg/dL (8.5-10.5); Carbon Dioxide 29 mmol/L (22-29); Chloride 96 mmol/L (98-107); Glomerular Filtration Rate 99.7 mL/min (90-130); Glucose 216 mg/dL (65-115); Magnesium 1.8 mg/dL (1.7-2.3); Osmolality Calculated 308 mOsm/kg (285-295); Potassium 3.5 mmol/L (3.5-5.1); Sodium 140 mmol/L (136-145); Total Bilirubin 0.6 mg/dL (0.15-1.2); Total Protein 7.6 g/dL (6.6-8.7)
[2021-08-18 06:20] LABS: Chol HDL Ratio 5.72 mg/dL (0.0-4.40); Cholesterol 166 mg/dL (0-200); HDL Cholesterol 29 mg/dL (60-100); LDL Cholesterol Calculated 88 mg/dL (50-129); Triglycerides 247 mg/dL (0-150); VLDL Cholestrol Calculation 49 mg/dL (0-30)
[2021-08-18 06:22] LABS: Estmated Average Glucose 223; Hemoglobin A1C 9.4 % (4.0-6.0)
[2021-08-18] MEDS: piperacillin-tazobactam 3.375 GM in sodium chloride 0.9% (plus) 50 ML IV (06:22)
[2021-08-18] MEDS: pantoprazole DR 40 mg Tablet PO (06:25)
--- NOTE | 2021-08-18 06:43 | PC.NURSE ---
SHIFT SUMMARY Has rested for intervals. Up to BSC with assist several times to urinate. Taking po well. NPO after midnight except for water. To have Stress test this am. No c/o chest pain tonight. Is SOB with exertion. O2 in [id number] per OR equipment monitor phototypesetting showing SR. IV infusing at 50ml/hr rate. Receiving IV antibiotics
--- NOTE | 2021-08-18 07:14 | PC.NURSE ---
Patient was taken for Stress Test at 07:12 this morning.
[2021-08-18] MEDS: regadenoson 0.4 Mg/5 ml Syringe IVP (08:00)
--- NOTE | 2021-08-18 09:25 | PC.NURSE ---
Patient arrived back to her room after stress test was performed at 0918.
[2021-08-18] MEDS: levothyroxine 200 mcg Tablet PO (09:33)
[2021-08-18] MEDS: levothyroxine 50 mcg Tablet PO (09:33)
[2021-08-18] MEDS: metoprolol tartrate 25 mg Tablet 75 MG PO (09:33)
[2021-08-18] MEDS: insulin lispro 100 unit/1 mL SUBCUT ×2 (09:33→13:15)
[2021-08-18] MEDS: lisinopril 20 mg Tablet PO (09:34)
[2021-08-18] MEDS: atorvastatin 40 mg Tablet 20 MG PO (09:34)
[2021-08-18] MEDS: ferrous sulfate EC 325 mg Tablet PO (09:34)
[2021-08-18] MEDS: fluoxetine 20 mg Capsule PO (09:34)
[2021-08-18] MEDS: apixaban 5 mg Tablet PO (09:34)
[2021-08-18] MEDS: BuSPIRONE 10 mg Tablet 7.5 MG PO (09:34)
[2021-08-18] MEDS: dilTIAZem ER (24HR) 240 mg Capsule PO (09:34)
--- NOTE | 2021-08-18 10:45 | PC.CHAP ---
Pastoral Care Encounter/Spiritual Assessment Type of Contact [] Declined divisional merchandising manager visit [] Patient/Family/Request visit [] Outpatient visit [] Follow-up visit [] Physician referral [] Code/Alert [x] Routine visit [] Staff referral [] Actively dying [] Patient sleeping [] Family support [] [] Out of room [] Palliative care [] [x] Receiving care in room [] Pre-surgical visit [] Trauma [] Long length of stay [] ICU visit [] Other: Relational/Emotional Strength [x] Patient feels connected with others/family/visitors/staff [] Distress [] Loneliness/isolation [] Abandonment Spirituality of Patient [x] Person of Kelli [] Attends Hindu of their Kelli [x] Believes in Prayer [] Reads Bible or Orthodoxy materials [] There are Spiritual issues to be addressed Division Traffic Superintendent Interventions [x] Prayer [x] Active listening [x] Non-anxious presence [x] Spiritual/emotional support [] Crisis/trauma care [x] Spiritual counseling [] Bereavement support [] Provided bereavement packet [] Provided Bible/devotional materials [] Provided toy/stuffed animal, coloring book to patient or family member [] Provided Communion [] Anointing/Snyder [] Salvation [x] Completed spiritual assessment [] Other: Impact on Illness or Injury [] Angry [] Fearful [x] Anxious [] Often cries [] Exhaustion [x] Unable to work [] Unable to attend christianity [] Unable to walk/stand [] Unable to read [] Unable to drive [] Unable to eat/drink [] Unable to sleep [] Unable to be with family [] Patient intubated [] Other: Summary chest pain is feelingn better will go home Time spent with patient 10 mins
--- NOTE | 2021-08-18 12:11 | P.DS_ITS ---
Discharge Providers Date of Admission: 08/17/21 16:30 Date of Discharge: August 18, 2021 Attending Provider at Admission: Abraham Menjivar MD Attending Provider at Discharge: Abraham Menjivar MD Primary Care Provider: Akbar Torres DO Diagnoses at Discharge Discharge Diagnosis (1) Chest pain: Status: Acute (2) Atrial fibrillation with RVR: Status: Acute (3) (HFpEF) heart failure with preserved ejection fraction: Status: Acute Qualifiers: Heart failure chronicity: chronic Qualified Code(s): I50.32 - Chronic diastolic (congestive) heart failure Permanent problem details: -Echo: EF=60%, no RWMA, mild MR, moderate (new since 02/2016) (4) COPD (chronic obstructive pulmonary disease): Status: Acute Qualifiers: COPD type: unspecified COPD Qualified Code(s): J44.9 - Chronic obstructive pulmonary disease, unspecified Permanent problem details: -oxygen dependent at baseline, 3 L requirement (5) Diabetes: Status: Acute Qualifiers: Diabetes mellitus type: type 2 Diabetes mellitus medical terminologist insulin use: with fpc use Diabetes mellitus complication status: without complication Qualified Code(s): E11.9 - Type 2 diabetes mellitus without complications; Z79.4 - ferry terminal agent (current) use of insulin (6) HTN (hypertension): Status: Acute Qualifiers: Hypertension type: essential hypertension Qualified Code(s): I10 - Essential (primary) hypertension (7) Hypothyroidism: Status: Acute Qualifiers: Hypothyroidism type: acquired Qualified Code(s): E03.9 - Hypothyroidism, unspecified Permanent problem details: -hx of papillary thyroid carcinoma s/p total thyroidectomy (8) GERD (gastroesophageal reflux disease): Status: Acute Reason for Visit Reason for Visit: CHEST PAIN/ HEADACHE Hospital Course Hospital Course Madelyn Olsen is a 65 year old female [facility] resident, past medical history of hypertension, type 2 diabetes mellitus, COPD, atrial fibrillation on chronic anticoagulation with Eliquis, history of COVID-19 and a possible history of myocardial infarction presents to the ER today after complaining of having central chest pain radiating to left arm along with nausea and headache today morning while she was resting.? As per the patient and patient's daughter she has been having occasional episodes of dizziness on standing up for last 1 week when her blood sugars and blood pressures have been checked and have been within normal limits.? Denies any changes in medications.? Does not have any chest pain currently. Blood work in the ER showed a white count of 11.8, hemoglobin of 12.8, D-dimer 0.4, sodium 136, creatinine of 0.8, BUN of 54, alkaline phosphatase of 159, baseline troponin of 16 with a delta of 0.5 in 2 hours, proBNP of 951. Patient admitted to the hospital further evaluation of chest pain. Patient had significant risk factors including diabetes mellitus, morbid obesity, hypertension, low activity along with family history of CAD. She underwent cardiac stress test which was negative for acute ischemia. Echocardiogram was done which showed a normal EF of 60% with grade 1 diastolic dysfunction, mild pulmonary hypertension with RVSP of 41.6, mild aortic stenosis. Patient's urine culture were positive for gram-negative alireza. On review of chart it seems patient has a history of ESBL E. coli. Patient denied of any dysuria, difficulty or pain while passing urine. It is most likely colonizer. She has been [facility] in hemodynamically stable condition. Her dose of diuretics have been decreased. Going forward she is not to take Bumex or metolazone. She can take Lasix 40 mg oral daily. Blood work also showed an A1c of 9.4 for which dose of lispro has been increased to 45 units 3 times daily. TSH low with high T4 so Levothyrox has been decreased to 200 mcg daily. Dose of atorvastatin has been increased to 40 mg daily. Physical Exam Narrative: General: No acute distress, AO x3, morbidly obese, chronically sick appearing HEENT: PERRLA, pupils bilaterally equal and reactive Chest: Normal vesicular breath sounds, no added sounds, equal good air entry bilaterally CVS: S1-S2 irregularly irregular, no tachycardia, no gallops, no rubs Abdomen: Soft, nontender, no organomegaly, bowel sounds present Neuro: No focal deficits, no facial deformity, AO x3, power 5/5 in all limbs Discharge Data Studies Completed and Pending Completed Studies During Hospitalization Category Date Time Status CT head wo con* [id number] Urgent Cat Scan 08/17/21 13:48 Completed Sestamibi Stress Test Request Routine Exams 08/17/21 18:44 Draft XR chest 1V portable [id number] Stat Exams 08/17/21 12:03 Completed NM kale perf SPECT r/s* [id number] Routine Nuc Med 08/18/21 18:44 Completed CV. echo complete* [id number] Routine Ultrasound 08/18/21 00:20 Completed Pending at discharge Category Date Time Status Urine Culture Routine Lab 08/17/21 16:30 Received Radiology Impressions Chest X-Ray 08/17/21 12:03 IMPRESSION: Stable cardiomegaly. No acute abnormality. Head CT 08/17/21 13:48 IMPRESSION: 1. No evidence of intracranial hemorrhage or mass effect. 2. Mild small vessel changes. Moderate parenchymal volume loss. 3. RIGHT maxillary sinusitis. 4. No acute intracranial findings. Laboratory Results WBC 11.4 10^3/uL (4.0-10.0) H 08/18/21 04:34 RBC 4.39 10^6/uL (4.1-5.3) 08/18/21 04:34 Hgb 12.2 g/dL (11.5-15.3) 08/18/21 04:34 Hct 40.1 % (37.0-47.0) 08/18/21 04:34 MCV 91.3 fl (81-99) D 08/18/21 04:34 MCH 27.8 pg (28.0-34.0) L 08/18/21 04:34 MCHC 30.4 g/dL (30.0-36.0) D 08/18/21 04:34 RDW 13.7 % (12.1-15.1) 08/18/21 04:34 Plt Count 274 10^3/cmm (130-400) 08/18/21 04:34 MPV 10.9 fL (7.4-10.4) H 08/18/21 04:34 Neut % (Auto) 68.2 % 08/18/21 04:34 Lymph % (Auto) 16.4 % 08/18/21 04:34 Johnston % (Auto) 11.3 % 08/18/21 04:34 Eos % (Auto) 3.1 % 08/18/21 04:34 Baso % (Auto) 0.5 % 08/18/21 04:34 Neut # (Auto) 7.75 10^3/uL (1.8-7.7) H 08/18/21 04:34 Lymph # (Auto) 1.9 10^3/uL (0.8-4.8) 08/18/21 04:34 Johnston # (Auto) 1.3 10^3/uL (0.2-0.9) H 08/18/21 04:34 Eos # (Auto) 0.4 10^3/uL (0.0-0.8) 08/18/21 04:34 Baso # (Auto) 0.1 10^3/uL (0.0-0.1) 08/18/21 04:34 Nucleated RBC % (auto) 0 % 08/18/21 04:34 Nucleated RBCs # 0.0 /100WBC 08/18/21 04:34 D-Dimer 0.46 ug/mIFEU (0-0.59) 08/17/21 13:10 Sodium 140 mmol/L (136-145) 08/18/21 04:34 Sodium Cancelled 08/18/21 04:34 Potassium 3.5 mmol/L (3.5-5.1) 08/18/21 04:34 Potassium Cancelled 08/18/21 04:34 Chloride 96 mmol/L (98-107) L 08/18/21 04:34 Chloride Cancelled 08/18/21 04:34 Carbon Dioxide 29 mmol/L (22-29) 08/18/21 04:34 Carbon Dioxide Cancelled 08/18/21 04:34 Anion Gap 18.5 (5-19) 08/18/21 04:34 Anion Gap Cancelled 08/18/21 04:34 BUN 46 mg/dL (8-23) H 08/18/21 04:34 BUN Cancelled 08/18/21 04:34 Creatinine 0.6 mg/dL (0.5-0.9) 08/18/21 04:34 Creatinine Cancelled 08/18/21 04:34 GFR Calculation 99.7 mL/min (90-130) 08/18/21 04:34 GFR Calculation Cancelled 08/18/21 04:34 Glucose 216 mg/dL (65-115) H 08/18/21 04:34 Glucose Cancelled 08/18/21 04:34 POC Glucose 243 mg/dL (70-110) H 08/18/21 06:02 Estimat Average Glucose 223 08/18/21 04:34 Hemoglobin A1c 9.4 % (4.0-6.0) H 08/18/21 04:34 Calculated Osmolality 308 mOsm/kg (285-295) H 08/18/21 04:34 Calculated Osmolality Cancelled 08/18/21 04:34 Calcium 9.8 mg/dL (8.5-10.5) 08/18/21 04:34 Calcium Cancelled 08/18/21 04:34 Phosphorus 4.0 mg/dL (2.5-4.5) 08/18/21 04:34 Magnesium 1.8 mg/dL (1.7-2.3) 08/18/21 04:34 Iron 58 ug/dL (37-145) 08/17/21 14:49 TIBC 264 mcg/dl 08/17/21 14:49 % Saturation 21.9 % (20-50) 08/17/21 14:49 Unsat Iron Binding 206 ug/dL (112-347) 08/17/21 14:49 Total Bilirubin 0.6 mg/dL (0.15-1.2) 08/18/21 04:34 Total Bilirubin Cancelled 08/18/21 04:34 AST 16 U/L (0-32) 08/18/21 04:34 AST Cancelled 08/18/21 04:34 ALT 19 U/L (0-33) 08/18/21 04:34 ALT Cancelled 08/18/21 04:34 Alkaline Phosphatase 155 IU/L (35-105) H 08/18/21 04:34 Alkaline Phosphatase Cancelled 08/18/21 04:34 Troponin T Baseline 16 ng/L (0-10) H 08/17/21 12:26 Troponin T 120 Minute 16.52 ng/L (0-10) H 08/17/21 14:49 Delta Troponin T 0.52 ABS# (0-10) 08/17/21 14:49 Troponin T Hi Sens 6Hr 16.70 ng/L (0-10) H 08/17/21 18:15 Troponin T Hi Sens 6Hr Delta 0.70 ng/L (0-12) 08/17/21 18:15 NT-Pro-B Natriuret Pep 991 pg/mL (0-125) H 08/17/21 14:49 Total Protein 7.6 g/dL (6.6-8.7) 08/18/21 04:34 Total Protein Cancelled 08/18/21 04:34 Albumin 3.6 g/dL (3.5-5.2) 08/18/21 04:34 Albumin Cancelled 08/18/21 04:34 Globulin 4.0 g/dL (1.3-4.6) 08/18/21 04:34 Globulin Cancelled 08/18/21 04:34 Triglycerides 247 mg/dL (0-150) H 08/18/21 04:34 Cholesterol 166 mg/dL (0-200) 08/18/21 04:34 LDL Cholesterol, Calc 88 mg/dL (50-129) 08/18/21 04:34 Total VLDL Cholesterol 49 mg/dL (0-30) H 08/18/21 04:34 HDL Cholesterol 29 mg/dL (60-100) L 08/18/21 04:34 Cholesterol/HDL Ratio 5.72 mg/dL (0.0-4.40) H 08/18/21 04:34 Lipase 25 U/L (13-60) 08/17/21 12:26 TSH 0.06 uIU/mL (0.27-4.20) L 08/17/21 14:49 Free T4 1.90 ng/dL (0.82-1.77) H 08/17/21 14:49 Free T3 3.4 PG/ML (2.0-4.4) 08/17/21 14:49 Urine Color Straw (Yellow) 08/17/21 16:30 Urine Appearance Sl hazy (CLEAR) 08/17/21 16:30 Urine pH 5 (5-7) 08/17/21 16:30 Ur Specific Gipsy 1.005 (1.005-1.030) 08/17/21 16:30 Urine Protein Neg (Negative) 08/17/21 16:30 Urine Glucose (UA) Norm (Normal) 08/17/21 16:30 Urine Ketones Negative (Negative) 08/17/21 16:30 Urine Blood Neg (Negative) 08/17/21 16:30 Urine Nitrate Positive (Negative) H 08/17/21 16:30 Urine Bilirubin Neg (Negative) 08/17/21 16:30 Urine Urobilinogen Norm mg/dL (Negative) 08/17/21 16:30 Ur Leukocyte Esterase 2+ (Negative) H 08/17/21 16:30 Urine RBC 0-4 /hpf (0-2) H 08/17/21 16:30 Urine WBC 25-40 /hpf (0-5) H 08/17/21 16:30 Ur Squamous Epith Cells 0-4 /hpf (0-5) H 08/17/21 16:30 Amorphous Sediment Not Reportable 08/17/21 16:30 Urine Bacteria 4+ /hpf (NONE) H 08/17/21 16:30 Additional Data from Hospital Stay Echocardiogram ?CONCLUSIONS ?Normal left ventricular size, systolic function and wall?thickness, with no regional wall motion abnormalities. Grade ?I/IV diastolic dysfunction (abnormal relaxation filling?pattern), normal to mildly elevated filling pressures. Left?ventricular ejection fraction is estimated at 60 %. ?Normal right ventricular size and systolic function. Mild?pulmonary hypertension, RVSP 41.6 mmHg. ?Mildly increased right atrial size. ?Mildly increased left atrial size. ?Structurally normal mitral valve. Mild mitral valve?regurgitation. ?The valve is very poorly seen.? There is very little calcium in?the valve.? Calculations are not consistent.? The mean gradient?across the valve is only 4.4 mmHg.? However the computer?calculated valve area at 0.89 cm squared which is incorrect.? Visually ?the valve is no more than mildly stenosed.? There is no aortic?insufficiency. ?Dr. Luigi Jon MD ?(Electronically Signed) ?Final Date:? ? ? 18 Aug 2021 10:30 Procedures Performed Lexiscan stress test. PERFUSION FINDINGS ?There is reduced radiotracer uptake in the inferior wall at rest that improves ?at stress, likely artifact. No evidence of ischemia ?FUNCTIONAL RESULTS ? ? (calculated via Gated SPECT) ? Stress Image LV EF (%):? ? 75 ? Stress EDV (mL):95 ? TID:? 0.79 ? Stress ESV (mL):24 ?FUNCTIONAL FINDINGS: ?There is normal left ventricular systolic function. ?IMPRESSIONS ?1. Normal myocardial perfusion imaging with no evidence of ischemia. ?Diaphragmatic attenuation noted in the inferior wall. ?2. LV systolic function is normal ?Estuardo Gottlieb MD ?(Electronically Signed) ?Final Date:? ? ? 18 Aug 2021 11:49 S Vitals Last Vital Signs Temp 98.1 F 08/18/21 12:00 Pulse 86 08/18/21 12:00 Resp 18 08/18/21 12:00 BP 107/69 08/18/21 12:00 Pulse Ox 94 08/18/21 12:00 Discharge Plan Discharge Patient Disposition: Home Condition: Stable Prescriptions: New furosemide [Lasix] 40 mg tablet 40 mg PO DAILY Qty: 30 0RF Continued metoprolol tartrate 25 mg tablet 75 mg PO BID 0RF oxybutynin chloride 5 mg tablet 5 mg PO TID PRN (Reason: Bladder Spasms) 0RF albuterol sulfate 90 mcg/actuation aerosol powdr breath activated 2 inh INHALATION Q4H PRN (Reason: Shortness Of Breath) 0RF azelastine 137 mcg (0.1 %) aerosol,spray 2 spray INTRANASAL BID 0RF ferrous sulfate 325 mg (65 mg iron) tablet 325 mg PO .ON MON,SUN, SUN 0RF pantoprazole 40 mg tablet,delayed release (DR/EC) 40 mg PO DAILY@07 0RF methenamine hippurate 1 gram tablet 1 g PO BID Qty: 60 12RF Rx Instructions: Take 1000 mg of vitamin C with each dose of methenamine acetaminophen 325 mg Tablet 650 mg PO Q4H PRN (Reason: Pain) 0RF magnesium hydroxide [Milk of Magnesia] 400 mg/5 mL Suspension 30 ml PO DAILY PRN (Reason: Constipation) 0RF Rx Instructions: if no bm in 3 days bisacodyl 10 mg Suppository 10 mg ID DAILY PRN (Reason: Constipation) 0RF Rx Instructions: IF NO RESULTS FROM MOM Fleet Enema 19-7 gram/118 mL Enema 118 ml ID DAILY PRN (Reason: Constipation) 0RF Rx Instructions: NEEDED IF NO RESULTS FROM DULCOLAX, IF STILL NO RESULTS, CALL DOCTOR. polyethylene glycol 3350 [ClearLax] 17 gram/dose Powder 17 g PO DAILY 0RF bisacodyl 5 mg Tablet 10 mg PO DAILY PRN (Reason: Constipation) 0RF Rx Instructions: IF NO RESULTS FROM MOM guaifenesin [Mucus Relief] 400 mg Tablet 400 mg PO BID PRN (Reason: Congestion) 0RF Advair Diskus 250-50 mcg/dose Blister With Device 1 inh INHALATION BID 0RF naloxone 0.4 mg/mL Solution See Rx Instructions .ROUTE .COMPLEX 0RF Rx Instructions: as directed prn Zofran 4 mg Tablet 4 - 8 mg PO Q6H PRN (Reason: Nausea And Vomiting) 0RF potassium chloride 20 mEq tablet,ER particles/crystals 40 meq PO BID 0RF Novolog U-100 Insulin aspart 100 unit/mL solution See Rx Instructions .ROUTE .COMPLEX 0RF Rx Instructions: sliding scale before meals and bedtime if bs less than 60 call md 150-200=3 units 201-250=5 units 251-300=7 units 301-350=9 units 351-400=11 units if bs greater than 400 give 11 units don not notify pcp unless cbg > 400x 3 consecutive readings fluoxetine 10 mg capsule 10 mg PO DAILY@07 0RF Stool Softener 100 mg Capsule 100 mg PO DAILY@07 0RF gabapentin 300 mg Capsule 300 mg PO BEDTIME@19 0RF levothyroxine 200 mcg tablet 200 mcg PO DAILY@05 0RF Rx Instructions: take with 50mcg to =250mcg metoclopramide HCl 10 mg tablet 10 mg PO BID 0RF nitrofurantoin monohyd/m-cryst 100 mg capsule 100 mg PO BID 0RF diclofenac sodium 1 % Gel See Rx Instructions .ROUTE .COMPLEX 0RF Rx Instructions: apply 2 g topically to upper extremities and 4 g to lower tid prn Eucerin Cream 1 applic TOPICAL DAILY 0RF Rx Instructions: rub eucerin to bilateral buttocks to help with itching diltiazem HCl 240 mg capsule,extended release 24hr 240 mg PO DAILY@07 0RF lisinopril 20 mg tablet 20 mg PO BEDTIME@19 0RF Eliquis 5 mg tablet 5 mg PO BID@07,19 0RF Tresiba FlexTouch U-100 100 unit/mL (3 mL) insulin pen 82 unit SUBCUT BEDTIME 0RF Zyrtec 10 mg Tablet 10 mg PO DAILY PRN (Reason: Allergy Symptoms) 0RF Vitamin C 500 mg Tablet 1,000 mg PO BID 0RF Changed atorvastatin 20 mg tablet 40 mg PO BEDTIME@19 Qty: 0 0RF Novolog Flexpen U-100 Insulin 100 unit/mL (3 mL) Insulin Pen 45 unit SUBCUT TID Qty: 0 0RF Discontinued bumetanide 1 mg tablet 1 mg PO DAILY@13 0RF bumetanide 2 mg Tablet 2 mg PO DAILY@08 0RF metolazone 5 mg tablet 5 mg PO .ON SUN AND 0RF levothyroxine 50 mcg tablet 50 mcg PO DAILY@05 0RF Rx Instructions: with 200mcg to =250mcg Discharge Orders: Discharge Order (Routine); Ordered 08/18/21 Ordered By: Abraham Menjivar Referrals: Akbar Torres DO [Primary Care Provider] - 7-10 days Discharge Diet: Cardiac and Diabetic Discharge Activity: Resume usual activity and Increase activity as tolerated Activity Restrictions/Additional Instructions: Dose of levothyrox has been changed to 200 mcg. Bumex and metolazone has been stopped. Take lasix 40 mg oral daily. Dose of lispro 45 u TID. Dose of atorvastatin has been increased to 40 mg daily. Please follow-up with your primary care provider within next 1 week. Take baby aspirin 81 mg daily. Discharge Attestations Time Spent in Discharge Care*: greater than 30 min Specific Discharge Activities: educating patient, discussing with case supervisor/social workers/dc planners, documenting/other paperwork and evaluating patient/reviewing data Status at Discharge: Cognitive status at discharge: cognitively intact , Behavioral status at discharge: cooperative and dependent in ADL's , Functional status at discharge: other assisted ambulation , Overall status at discharge: patient is not back to baseline Quality Metrics Clinical Quality Measures [ No reported AMI, CVA or VTE this stay] Coding Level of Care Code Acute Chg FW DC note Diagnoses Chest pain R07.9 Atrial fibrillation with RVR I48.91 (HFpEF) heart failure with preserved ejection fraction I50.32 Heart failure chronicity: chronic COPD (chronic obstructive pulmonary disease) J44.9 COPD type: unspecified COPD Diabetes E11.9; Z79.4 Diabetes mellitus type: type 2 Diabetes mellitus medical terminologist insulin use: with medical terminologist use Diabetes mellitus complication status: without complication HTN (hypertension) I10 Hypertension type: essential hypertension Hypothyroidism E03.9 Hypothyroidism type: acquired GERD (gastroesophageal reflux disease) K21.9
[2021-08-18 12:19] LABS: Glucose Point of Care 331 mg/dL (70-110)
[2021-08-18 15:01] LABS: SARS Covid-2 Antigen Negative (Negative)
--- NOTE | 2021-08-18 15:55 | PC.NURSE ---
Called and spoke with JEFF Vital at [facility] regarding the discharge instructions and patient status update. Changes in medications were addressed with the nurse at [facility] as well as the patient's popped blisters on her buttock and her most recent vital signs.
--- NOTE | 2021-08-18 18:44 | NMCV_ITS ---
NM kale perf SPECT r/s* [id number] Madelyn Olsen Age: 65 Gender: F : 1955 Exam Date: 08/18/2021 06:57 Ordering Phys: Abraham Menjivar MD Technologist: SAV Boyer Exam Location: [facility] Indications: CHEST PAIN STRESS TEST Please see separate stress test report [facility] for full findings IMAGE PROTOCOL Rest/Stress 1 Lexiscan Day Radiopharmaceutical Dose (mCi) Administration Site Administered by Rest: Tc-99m 11.0 IV SAV Treadwell Sestamibi Stress:Tc-99m 33.0 IV SAV Treadwell Sestamibi Rest: 18-Aug-2021 60 Discovery 630 Stress: 18-Aug-2021 30 Discovery 630 0.4mg Lexiscan. Supine position only as patient was unable to lay prone. SPECT RESULTS Technical Quality: Excellent Raw Data Analysis: Breast attenuation Image Corrections: No attenuation or motion correction applied Summed Stress Score: 0 Summed Rest Score: 5 Summed Difference Score: 0 PERFUSION FINDINGS There is reduced radiotracer uptake in the inferior wall at rest that improves at stress, likely artifact. No evidence of ischemia FUNCTIONAL RESULTS (calculated via Gated SPECT) Stress Image LV EF (%): 75 Stress EDV (mL):95 TID: 0.79 Stress ESV (mL):24 FUNCTIONAL FINDINGS: There is normal left ventricular systolic function. IMPRESSIONS 1. Normal myocardial perfusion imaging with no evidence of ischemia. Diaphragmatic attenuation noted in the inferior wall. 2. LV systolic function is normal Estuardo Gottlieb MD (Electronically Signed) Final Date: 18 Aug 2021 11:49 S
== END 2021-08-18 16:11 | disposition skilled nursing facility (03) ==
LOC: ER 16:30 → CSU 16:54 → MEDSURG 17:12
PROVIDERS: Admitting Provider Student in an Organized Health Care Education/Training Program; Emergency Provider Emergency Medicine; PCP Internal Medicine; Visit Provider Student in an Organized Health Care Education/Training Program
DX: R07.9 Chest pain, unspecified (principal); I48.91 Unspecified atrial fibrillation; I11.0 Hypertensive heart disease with heart failure; I50.32 Chronic diastolic (congestive) heart failure; J44.9 Chronic obstructive pulmonary disease, unspecified; E11.9 Type 2 diabetes mellitus without complications; Z79.4 Long term (current) use of insulin; E03.9 Hypothyroidism, unspecified; K21.9 Gastro-esophageal reflux disease without esophagitis; Z79.01 Long term (current) use of anticoagulants; Z86.16 Personal history of COVID-19; E78.5 Hyperlipidemia, unspecified; Z99.81 Dependence on supplemental oxygen; E66.01 Morbid (severe) obesity due to excess calories; Z68.43 Body mass index [BMI] 50.0-59.9, adult; Z86.73 Personal history of transient ischemic attack (TIA), and cerebral infarction without residual deficits
CPT/HCPCS: 36415; 36416; 70450; 71045; 78452; 80053; 80061; 81001; 82962; 83036; 83540; 83550; 83690; 83735; 83880; 84100; 84439; 84443; 84481; 84484; 85025; 85378; 87077; 87086; 87186; 87426; 93005; 93017; 93306; 94664; 96372; 99285; A9500; G0378; J1815; J2543; J2785; J7030

== ENCOUNTER 2021-09-03 13:35 | Emergency (ER) | payer MEDICARE, MEDICAID, SELFPAY ==
[2021-09-03 13:44] VITALS: BP 194/93; PULSE 94; RESP 18; O2SAT 95; BMI 49.1
--- NOTE | 2021-09-03 13:44 | USR_ITS ---
PROCEDURE INFORMATION: Exam: US Duplex Left Lower Extremity Veins, Limited Exam date and time: 09/03/2021 2:01 PM Age: 65 years old Clinical indication: Edema, localized; Lower extremity, left; Additional info: Leg swelling TECHNIQUE: Imaging protocol: Real-time Duplex ultrasound of the Left Lower Extremity with 2-D bhardwaj scale, color Doppler flow and spectral waveform analysis with image documentation. Limited exam focused on the left lower extremity veins. COMPARISON: No relevant prior studies available. FINDINGS: Left deep veins: Unremarkable. The common femoral, femoral, proximal profunda femoral and popliteal veins are patent without thrombus. Normal Doppler waveforms. Normal compressibility and/or augmentation response. Left superficial veins: Unremarkable. Saphenofemoral junction is patent without thrombus. Soft tissues: Unremarkable. US/CV venous duplex [facility] [id number] IMPRESSION: No evidence of deep vein thrombosis.
--- NOTE | 2021-09-03 13:44 | W.ED.GENADLT ---
HPI - General Adult General: Chief complaint: Extremity Problem,Nontraumatic Stated complaint: LEFT LEG SWELLING/REDNESS Time Seen by Provider: 09/03/21 13:38 Source: patient Mode of arrival: ambulatory Limitations: no limitations History of Present Illness: Six 5-year-old female resident of a group home comes in complaining of left leg pain and swelling. Patient is chronically on oxygen supplementation at 4 L from by nasal cannula. She has a history Onset (ago): hour(s) Location: left and lower extremity Radiation: non-radiation Severity: moderate Pain Consistency: constant Relieving factors: none Exacerbating factors: none Associated symptoms: Reports dyspnea and short of breath; Deny chest pain, confusion, cough, diaphoresis, decreased appetite, fevers/chills, headache(s), malaise, nausea, rash, palpitations, seizures, syncope, vomiting or weakness Treatments prior to arrival: none Review of Systems Const: Denies: malaise or diaphoresis ENMT: Denies: throat pain, ear or mastoid pain, nasal discharge or nasal congestion Card: Denies: chest pain, palpitations or syncope Resp: Reports: dyspnea GI: Denies: nausea or vomiting : Denies: flank pain, difficulty voiding, dysuria, urinary frequency or urinary urgency Skin/Breast: Denies: rash Neuro: Denies: headache(s) or confusion PFSH ED PFSH: Medical History (HFpEF) heart failure with preserved ejection fraction -Echo: EF=60%, no RWMA, mild MR, moderate (new since 02/2016) Atrial fibrillation with RVR Chest pain Chronic cystitis COPD (chronic obstructive pulmonary disease) -oxygen dependent at baseline, 3 L requirement Depression Diabetes Elevated BUN GERD (gastroesophageal reflux disease) History of ESBL E. coli infection HTN (hypertension) Hypothyroidism -hx of papillary thyroid carcinoma s/p total thyroidectomy Morbid obesity -BMI-46 kg/m2 DENNYS (obstructive sleep apnea) Pyelonephritis TIA (transient ischemic attack) Urge incontinence Surgical History H/O cataract extraction H/O: hysterectomy S/P appendectomy S/P cholecystectomy S/P thyroidectomy Family History Father , 71 Stroke Mother , 83 CAD (coronary artery disease) Diabetes Lung disease Social History Smoking and tobacco status: never smoked Alcohol intake: never Caregiver/support person: Yes Household members: other Housing: Long-Term Marital status: / Current occupational status: retired History of recent travel: No Physical Exam Const: COMMON NORMALS: no acute distress GENERAL APPEARANCE: cooperative ORIENTATION/CONSCIOUSNESS: Yes oriented to person, Yes oriented to place and Yes oriented to time HENMT: COMMON NORMALS: normocephalic, atraumatic and hearing grossly normal bilaterally HEAD & SCALP: normocephalic and atraumatic Resp: COMMON NORMALS: normal respiratory effort, No retractions and No use of accessory muscles AUSCULTATION: crackles Laterality: bilateral (At bases) and posterior Cardio: COMMON NORMALS: regular rate, regular rhythm and No murmurs present (Cardio) RATE: regular rate RHYTHM: regular rhythm GI: COMMON NORMALS: Soft to palpation and No hepatosplenomegaly present AUSCULTATION: Yes normoactive bowel sounds PALPATION: Yes Soft to palpation, No Tenderness to palpation present (GI), No Guarding due to palpation present (GI) and Yes No hepatosplenomegaly present Extremity: COMMON NORMALS: normal to inspection, capillary refill normal, no clubbing, cyanosis or edema, no calf tenderness and no pedal edema Neuro: SENSORIUM/ORIENTATION: Yes oriented to person, Yes oriented to place and Yes oriented to time Skin: COMMON NORMALS: no rashes or lesions noted GENERAL SKIN EXAM: no rashes or lesions noted Course Vital Signs: Vital signs: Vital Signs Pulse Rate 87 09/03/21 16:19 Respiratory Rate 18 09/03/21 16:19 Blood Pressure 157/74 09/03/21 16:19 Pulse Oximetry 96 09/03/21 16:19 MDM - General Adult Medical Decision Making Improved with diuresis. She still has some orthopnea venous duplex negative will discharge home increase her Lasix to 40 mg twice daily for 3 days increase her potassium as well recheck BMP in 3 days and follow-up with her primary care doctor. Troponin and EKG reviewed. Medical Records I reviewed the patient's medical records. Lab Data I reviewed the patient's lab results. : 09/03/21 13:26 09/03/21 13:26 Radiology Impressions Venous Duplex 09/03/21 13:44 IMPRESSION: No evidence of deep vein thrombosis. Chest X-Ray 09/03/21 14:47 IMPRESSION: Stable cardiomegaly, no acute findings. Laboratory Results WBC 11.2 10^3/uL (4.0-10.0) H 09/03/21 13:26 RBC 4.31 10^6/uL (4.1-5.3) 09/03/21 13:26 Hgb 12.1 g/dL (11.5-15.3) 09/03/21 13:26 Hct 38.4 % (37.0-47.0) 09/03/21 13:26 MCV 89.1 fl (81-99) 09/03/21 13:26 MCH 28.1 pg (28.0-34.0) 09/03/21 13:26 MCHC 31.5 g/dL (30.0-36.0) 09/03/21 13:26 RDW 14.3 % (12.1-15.1) 09/03/21 13:26 Plt Count 284 10^3/cmm (130-400) 09/03/21 13:26 MPV 10.7 fL (7.4-10.4) H 09/03/21 13:26 Neut % (Auto) 70.0 % 09/03/21 13:26 Lymph % (Auto) 15.8 % 09/03/21 13:26 [place] % (Auto) 9.5 % 09/03/21 13:26 Eos % (Auto) 3.1 % 09/03/21 13:26 Baso % (Auto) 0.5 % 09/03/21 13:26 Neut # (Auto) 7.86 10^3/uL (1.8-7.7) H 09/03/21 13:26 Lymph # (Auto) 1.8 10^3/uL (0.8-4.8) 09/03/21 13:26 [place] # (Auto) 1.1 10^3/uL (0.2-0.9) H 09/03/21 13:26 Eos # (Auto) 0.4 10^3/uL (0.0-0.8) 09/03/21 13:26 Baso # (Auto) 0.1 10^3/uL (0.0-0.1) 09/03/21 13:26 Nucleated RBC % (auto) 0 % 09/03/21 13:26 Nucleated RBCs # 0.0 /100WBC 09/03/21 13:26 Sodium 140 mmol/L (136-145) 09/03/21 13:26 Potassium 3.8 mmol/L (3.5-5.1) 09/03/21 13:26 Chloride 98 mmol/L (98-107) 09/03/21 13:26 Carbon Dioxide 27 mmol/L (22-29) 09/03/21 13:26 Anion Gap 18.8 (5-19) 09/03/21 13:26 BUN 10 mg/dL (8-23) 09/03/21 13:26 Creatinine 0.4 mg/dL (0.5-0.9) L 09/03/21 13:26 GFR Calculation 159.2 mL/min (90-130) H 09/03/21 13:26 Glucose 143 mg/dL (65-115) H 09/03/21 13:26 Calculated Osmolality 292 mOsm/kg (285-295) 09/03/21 13:26 Calcium 8.8 mg/dL (8.5-10.5) 09/03/21 13:26 Total Bilirubin 0.5 mg/dL (0.15-1.2) 09/03/21 13:26 AST 14 U/L (0-32) 09/03/21 13:26 ALT 15 U/L (0-33) 09/03/21 13:26 Alkaline Phosphatase 151 IU/L (35-105) H 09/03/21 13:26 Troponin T Baseline 12 ng/L (0-10) H 09/03/21 13:26 Troponin T 120 Minute 13.64 ng/L (0-10) H 09/03/21 15:56 Delta Troponin T 1.64 ABS# (0-10) 09/03/21 15:56 NT-Pro-B Natriuret Pep 1685 pg/mL (0-125) H 09/03/21 13:26 Total Protein 7.3 g/dL (6.6-8.7) 09/03/21 13:26 Albumin 4.1 g/dL (3.5-5.2) 09/03/21 13:26 Globulin 3.2 g/dL (1.3-4.6) 09/03/21 13:26 Discharge Plan Discharge Patient Disposition: Home Clinical Impression: Congestive heart failure Condition: Stable Prescriptions: No Action metoprolol tartrate 25 mg tablet 75 mg PO BID 0RF oxybutynin chloride 5 mg tablet 5 mg PO TID PRN (Reason: Bladder Spasms) 0RF albuterol sulfate 90 mcg/actuation aerosol powdr breath activated 2 inh INHALATION Q4H PRN (Reason: Shortness Of Breath) 0RF azelastine 137 mcg (0.1 %) aerosol,spray 2 spray INTRANASAL BID 0RF ferrous sulfate 325 mg (65 mg iron) tablet 325 mg PO .ON MON,WED, FRI 0RF pantoprazole 40 mg tablet,delayed release (DR/EC) 40 mg PO DAILY@07 0RF methenamine hippurate 1 gram tablet 1 g PO BID Qty: 60 12RF Rx Instructions: Take 1000 mg of vitamin C with each dose of methenamine acetaminophen 325 mg Tablet 650 mg PO Q4H PRN (Reason: Pain) 0RF magnesium hydroxide [Milk of Magnesia] 400 mg/5 mL Suspension 30 ml PO DAILY PRN (Reason: Constipation) 0RF Rx Instructions: if no bm in 3 days bisacodyl 10 mg Suppository 10 mg NH DAILY PRN (Reason: Constipation) 0RF Rx Instructions: IF NO RESULTS FROM MOM Fleet Enema 19-7 gram/118 mL Enema 118 ml NH DAILY PRN (Reason: Constipation) 0RF Rx Instructions: NEEDED IF NO RESULTS FROM DULCOLAX, IF STILL NO RESULTS, CALL DOCTOR. polyethylene glycol 3350 [ClearLax] 17 gram/dose Powder 17 g PO DAILY 0RF bisacodyl 5 mg Tablet 10 mg PO DAILY PRN (Reason: Constipation) 0RF Rx Instructions: IF NO RESULTS FROM MOM guaifenesin [Mucus Relief] 400 mg Tablet 400 mg PO BID PRN (Reason: Congestion) 0RF fluticasone propion-salmeterol [Advair Diskus] 250-50 mcg/dose Blister With Device 1 inh INHALATION BID 0RF naloxone 0.4 mg/mL Solution See Rx Instructions .ROUTE .COMPLEX 0RF Rx Instructions: as directed prn ondansetron HCl 4 mg Tablet 4 - 8 mg PO Q6H PRN (Reason: Nausea And Vomiting) 0RF potassium chloride 20 mEq tablet,ER particles/crystals 40 meq PO BID 0RF insulin aspart U-100 [Novolog U-100 Insulin aspart] 100 unit/mL solution See Rx Instructions .ROUTE .COMPLEX 0RF Rx Instructions: sliding scale before meals and bedtime if bs less than 60 call md 150-200=3 units 201-250=5 units 251-300=7 units 301-350=9 units 351-400=11 units if bs greater than 400 give 11 units don not notify pcp unless cbg > 400x 3 consecutive readings fluoxetine 10 mg capsule 10 mg PO DAILY@07 0RF docusate sodium [Stool Softener] 100 mg Capsule 100 mg PO DAILY@07 0RF gabapentin 300 mg Capsule 300 mg PO BEDTIME@19 0RF levothyroxine 200 mcg tablet 200 mcg PO DAILY@05 0RF Rx Instructions: Take with 25 mcg to equal 225 mcg daily metoclopramide HCl 10 mg tablet 10 mg PO BID 0RF nitrofurantoin monohyd/m-cryst 100 mg capsule 100 mg PO BID 0RF diclofenac sodium 1 % Gel See Rx Instructions .ROUTE .COMPLEX 0RF Rx Instructions: apply 2 g topically to upper extremities and 4 g to lower tid prn Eucerin Cream 1 applic TOPICAL DAILY 0RF Rx Instructions: rub eucerin to bilateral buttocks to help with itching diltiazem HCl 240 mg capsule,extended release 24hr 240 mg PO DAILY@07 0RF lisinopril 20 mg tablet 20 mg PO BEDTIME@19 0RF Eliquis 5 mg tablet 5 mg PO BID@,19 0RF Tresiba FlexTouch U-100 100 unit/mL (3 mL) insulin pen 82 unit SUBCUT BEDTIME 0RF Zyrtec 10 mg Tablet 10 mg PO DAILY PRN (Reason: Allergy Symptoms) 0RF Vitamin C 500 mg Tablet 1,000 mg PO BID 0RF furosemide [Lasix] 40 mg tablet 40 mg PO DAILY Qty: 30 0RF atorvastatin 20 mg tablet 40 mg PO BEDTIME@19 Qty: 0 0RF aspirin 81 mg Tablet,Chewable 81 mg PO DAILY 0RF levothyroxine 25 mcg Tablet 25 mcg PO DAILY 0RF Rx Instructions: Take with 200mcg once daily to equal 225 mcg daily Novolog Flexpen U-100 Insulin 100 unit/mL (3 mL) insulin pen 50 unit SUBCUT TID 0RF Discharge Orders: Discharge ED (Routine); Ordered 09/03/21 Ordered By: Anthony Estrella Referrals: Akbar Torres DO [Primary Care Provider] - Patient Instructions: Opioid Safety Activity Restrictions/Additional Instructions: Increase Lasix to 40 mg twice daily for 3 days then check a BMP report to primary care doctor. Coding Level of Care Code ED Customer Contact Sales Associate for Elinor Moreno
--- NOTE | 2021-09-03 13:56 | ECG_ITS ---
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 Measurements Intervals [place] Rate: 68 P: 62 DE: 136 QRS: 5 QRSD: 136 T: -53 QT: 414 QTc: 442 Interpretive Statements SINUS RHYTHM RIGHT BUNDLE BRANCH BLOCK [120+ ms QRS DURATION, UPRIGHT V1, 40+ ms S IN I/aVL/V4/V5/V6] MODERATE T-WAVE ABNORMALITY, CONSIDER ANTEROLATERAL ISCHEMIA [-0.1+ mV T-WAVE IN V3-V6] MODERATE T-WAVE ABNORMALITY, CONSIDER INFERIOR ISCHEMIA [-0.1+ mV T-WAVE IN II/aVF] Compared to ECG 08/17/2021 20:38:36 No significant changes Electronically Signed On 09-03-2021 20:15:29 CDT by Estuardo Gottlieb M.D. [id number]
[2021-09-03 14:06] LABS: Basophils # 0.1 10^3/uL (0.0-0.1); Basophils % 0.5 %; Eosinophils # 0.4 10^3/uL (0.0-0.8); Eosinophils % 3.1 %; Hematocrit 38.4 % (37.0-47.0); Hemoglobin 12.1 g/dL (11.5-15.3); Lymphocytes # 1.8 10^3/uL (0.8-4.8); Lymphocytes % 15.8 %; Mean Corpuscular HGB Conc 31.5 g/dL (30.0-36.0); Mean Corpuscular Hemoglobin 28.1 pg (28.0-34.0); Mean Corpuscular Volume 89.1 fl (81-99); Mean Platelet Volume 10.7 fL (7.4-10.4); Monocytes # 1.1 10^3/uL (0.2-0.9); Monocytes % 9.5 %; Neutrophils # 7.86 10^3/uL (1.8-7.7); Nucleated Red Blood Cells % 0 %; Platelet Count 284 10^3/cmm (130-400); Red Blood Count 4.31 10^6/uL (4.1-5.3); Red Cell Distribution Width 14.3 % (12.1-15.1); White Blood Count 11.2 10^3/uL (4.0-10.0)
[2021-09-03 14:28] LABS: Troponin(5th) Baseline 12 ng/L (0-10)
[2021-09-03 14:38] LABS: Alanine Aminotransferase 15 U/L (0-33); Albumin Level 4.1 g/dL (3.5-5.2); Alkaline Phosphatase 151 IU/L (35-105); Blood Urea Nitrogen 10 mg/dL (8-23); Calcium 8.8 mg/dL (8.5-10.5); Carbon Dioxide 27 mmol/L (22-29); Chloride 98 mmol/L (98-107); Globulin 3.2 g/dL (1.3-4.6); Glomerular Filtration Rate 159.2 mL/min (90-130); Glucose 143 mg/dL (65-115); NT Pro B Type Natriuretic Pept 1685 pg/mL (0-125); Osmolality Calculated 292 mOsm/kg (285-295); Sodium 140 mmol/L (136-145); Total Bilirubin 0.5 mg/dL (0.15-1.2); Total Protein 7.3 g/dL (6.6-8.7)
[2021-09-03 14:44] LABS: Anion Gap 18.8 (5-19); Aspartate Amino Transferase 14 U/L (0-32); Potassium 3.8 mmol/L (3.5-5.1)
--- NOTE | 2021-09-03 14:47 | XRR_ITS ---
PROCEDURE INFORMATION: Exam: XR Chest Exam date and time: 09/03/2021 3:22 PM Age: 65 years old Clinical indication: Cough and dyspnea; Additional info: Dyspnea/cough TECHNIQUE: Imaging protocol: XR of the chest. Views: 1 view. COMPARISON: CR XR chest 1V portable [id number] 08/17/2021 12:29 PM FINDINGS: Lungs: No consolidation. Pleural spaces: No pleural effusion. No pneumothorax. Heart/Mediastinum: Stable cardiomegaly. Bones/joints: Visualized osseous structures are intact. XR/XR chest 1V portable [id number] IMPRESSION: Stable cardiomegaly, no acute findings.
[2021-09-03 15:21] VITALS: BP 158/79; PULSE 89; RESP 18; O2SAT 95
[2021-09-03] MEDS: FUROsemide 10 mg/mL SDV 4mL 60 MG IVP (15:38)
--- NOTE | 2021-09-03 15:56 | ECG_ITS ---
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 Measurements Intervals [place] Rate: 79 P: 80 SD: 142 QRS: -3 QRSD: 138 T: -72 QT: 426 QTc: 490 Interpretive Statements SINUS RHYTHM RIGHT BUNDLE BRANCH BLOCK [120+ ms QRS DURATION, UPRIGHT V1, 40+ ms S IN I/aVL/V4/V5/V6] MODERATE T-WAVE ABNORMALITY, CONSIDER ANTEROLATERAL ISCHEMIA [-0.1+ mV T-WAVE IN V3-V6] MODERATE T-WAVE ABNORMALITY, CONSIDER INFERIOR ISCHEMIA [-0.1+ mV T-WAVE IN II/aVF] Compared to ECG 09/03/2021 14:19:02 No significant changes Electronically Signed On 09-03-2021 20:18:06 CDT by Estuardo Gottlieb M.D. [email or web address]
[2021-09-03 16:19] VITALS: BP 157/74; PULSE 87; RESP 18; O2SAT 96
[2021-09-03 16:27] LABS: Troponin 5 2HR 13.64 ng/L (0-10)
[2021-09-03 16:29] LABS: Troponin 5 2HR Delta 1.64 ABS# (0-10)
== END 2021-09-03 16:24 | disposition home or self-care (01) ==
PROVIDERS: Emergency Provider Family Medicine; PCP Internal Medicine
DX: I11.0 Hypertensive heart disease with heart failure (principal); I50.9 Heart failure, unspecified; R60.0 Localized edema; R06.01 Orthopnea; J44.9 Chronic obstructive pulmonary disease, unspecified; E11.9 Type 2 diabetes mellitus without complications; E03.9 Hypothyroidism, unspecified; K21.9 Gastro-esophageal reflux disease without esophagitis; E66.01 Morbid (severe) obesity due to excess calories; Z68.42 Body mass index [BMI] 45.0-49.9, adult; Z99.81 Dependence on supplemental oxygen; Z79.4 Long term (current) use of insulin; Z79.01 Long term (current) use of anticoagulants; Z86.73 Personal history of transient ischemic attack (TIA), and cerebral infarction without residual deficits
CPT/HCPCS: 71045; 80053; 83880; 84484; 85025; 93005; 93971; 96374; 99285; J1940

== ENCOUNTER 2021-10-18 13:54 | Inpatient (IN) | payer MEDICARE, MEDICAID, SELFPAY ==
[2021-10-18 14:01] VITALS: BP 113/89; PULSE 85; RESP 16; TEMP 36.9; O2SAT 95; BMI 50.8
[2021-10-18] MEDS: saline nasal spray 44mL Btl 1 SPRAY NASAL (14:15)
[2021-10-18] MEDS: oxymetazoline 0.05% Nasal Spray 15 mL 2 SPRAY NOSTRIL-B (14:15)
--- NOTE | 2021-10-18 14:17 | ED_ITS ---
HPI - Epistaxis General: Chief complaint: Epistaxis Stated complaint: nose bleed Time Seen by Provider: 10/18/21 13:57 Source: patient Mode of arrival: EMS History of Present Illness: 66-year-old female brought in by EMS from a [facility] she had a epistaxis for the last 12 to 18 hours she is on Eliquis. He had a clamp on her nose that its been continually bleeding overnight. She not had any recent surgeriesno history of trauma to the nose. MD complaint: epistaxis Location: bilateral nostril Onset (ago): hour(s) Duration: intermittent Context: other anticoagulant use Associated symptoms: Deny fever(s), headache(s), sinus pain, syncope, vomiting or weakness Treatment prior to arrival: nose pinching Review of Systems Const: Denies: fever(s), chills, fatigue or malaise ENMT: Reports: epistaxis; Denies: sinus pain Card: Denies: chest pain or syncope Resp: Denies: dyspnea, productive cough or non-productive cough GI: Denies: abdominal pain, nausea or vomiting : Denies: flank pain, difficulty voiding, dysuria, urinary frequency or urinary urgency Skin/Breast: Denies: rash or pruritus Neuro: Denies: headache(s) PFSH ED PFSH: Medical History (HFpEF) heart failure with preserved ejection fraction -Echo: EF=60%, no RWMA, mild MR, moderate (new since 02/2016) Atrial fibrillation with RVR Chest pain Chronic cystitis COPD (chronic obstructive pulmonary disease) -oxygen dependent at baseline, 3 L requirement Depression Diabetes Elevated BUN GERD (gastroesophageal reflux disease) History of ESBL E. coli infection HTN (hypertension) Hypothyroidism -hx of papillary thyroid carcinoma s/p total thyroidectomy Morbid obesity -BMI-46 kg/m2 DENNYS (obstructive sleep apnea) Pyelonephritis TIA (transient ischemic attack) Urge incontinence Surgical History H/O cataract extraction H/O: hysterectomy S/P appendectomy S/P cholecystectomy S/P thyroidectomy Family History Father , 71 Stroke Mother , 83 CAD (coronary artery disease) Diabetes Lung disease Social History Smoking and tobacco status: never smoked Alcohol intake: never Caregiver/support person: Yes Household members: other Housing: [facility] Marital status: / Current occupational status: retired History of recent travel: No Physical Exam Const: COMMON NORMALS: no acute distress GENERAL APPEARANCE: cooperative and comfortable ORIENTATION/CONSCIOUSNESS: Yes awake HENMT: COMMON NORMALS: normocephalic and atraumatic HEAD & SCALP: normocephalic and atraumatic OTHER: Mild epistaxis bilaterally from the nares Neck/C-Spine: COMMON NORMALS: no JVD Resp: COMMON NORMALS: normal respiratory effort, No retractions, No use of accessory muscles and clear to auscultation bilaterally AUSCULTATION: clear to auscultation bilaterally Cardio: COMMON NORMALS: no JVD, regular rate and No murmurs present (Cardio) RATE: regular rate RHYTHM: abnormal rhythm irregularly irregular GI: COMMON NORMALS: Soft to palpation and No hepatosplenomegaly present AUSCULTATION: Yes normoactive bowel sounds PALPATION: Yes Soft to palpation, No Tenderness to palpation present (GI), No Guarding due to palpation present (GI) and Yes No hepatosplenomegaly present Extremity: COMMON NORMALS: normal to inspection, capillary refill normal, no clubbing, cyanosis or edema, no calf tenderness and no pedal edema Skin: COMMON NORMALS: no rashes or lesions noted GENERAL SKIN EXAM: no rashes or lesions noted Procedures Epistaxis Control Time Out Performed: Yes Nostril: bilateral Nose Prepped With: oxymetazoline Direct Inspection: unable to visualize Clots Removed by: blowing nose Cautery Used: none Device Inserted: nasal tampon Patient Tolerated Procedure: well Course Vital Signs: Vital signs: Vital Signs Temperature 98.4 F 10/18/21 14:01 Pulse Rate 85 10/18/21 14:01 Respiratory Rate 16 10/18/21 14:01 Blood Pressure 113/89 10/18/21 14:01 Pulse Oximetry 95 10/18/21 14:01 MDM - Epistaxis Medical Decision Making ArrangementBleeding controlled. PCP is already stopped the Eliquis. Will discharge back to the retirement with ENT Medical Records I reviewed the patient's medical records. Lab Data I reviewed the patient's lab results. Discharge Plan Discharge Patient Disposition: Home Clinical Impression: Epistaxis, On continuous oral anticoagulation Condition: Stable Prescriptions: No Action metoprolol tartrate 25 mg tablet 75 mg PO BID 0RF oxybutynin chloride 5 mg tablet 5 mg PO TID PRN (Reason: Bladder Spasms) 0RF albuterol sulfate 90 mcg/actuation aerosol powdr breath activated 2 inh INHALATION Q4H PRN (Reason: Shortness Of Breath) 0RF azelastine 137 mcg (0.1 %) aerosol,spray 2 spray INTRANASAL BID 0RF ferrous sulfate 325 mg (65 mg iron) tablet 325 mg PO .ON MON,WED, FRI 0RF pantoprazole 40 mg tablet,delayed release (DR/EC) 40 mg PO DAILY@07 0RF methenamine hippurate 1 gram tablet 1 g PO BID Qty: 60 12RF Rx Instructions: Take 1000 mg of vitamin C with each dose of methenamine acetaminophen 325 mg Tablet 650 mg PO Q4H PRN (Reason: Pain) 0RF magnesium hydroxide [Milk of Magnesia] 400 mg/5 mL Suspension 30 ml PO DAILY PRN (Reason: Constipation) 0RF Rx Instructions: if no bm in 3 days bisacodyl 10 mg Suppository 10 mg ID DAILY PRN (Reason: Constipation) 0RF Rx Instructions: IF NO RESULTS FROM MOM Fleet Enema 19-7 gram/118 mL Enema 118 ml ID DAILY PRN (Reason: Constipation) 0RF Rx Instructions: NEEDED IF NO RESULTS FROM DULCOLAX, IF STILL NO RESULTS, CALL DOCTOR. polyethylene glycol 3350 [ClearLax] 17 gram/dose Powder 17 g PO DAILY 0RF bisacodyl 5 mg Tablet 10 mg PO DAILY PRN (Reason: Constipation) 0RF Rx Instructions: IF NO RESULTS FROM MOM guaifenesin [Mucus Relief] 400 mg Tablet 400 mg PO BID PRN (Reason: Congestion) 0RF fluticasone propion-salmeterol [Advair Diskus] 250-50 mcg/dose Blister With Device 1 inh INHALATION BID 0RF naloxone 0.4 mg/mL Solution See Rx Instructions .ROUTE .COMPLEX 0RF Rx Instructions: as directed prn ondansetron HCl 4 mg Tablet 4 - 8 mg PO Q6H PRN (Reason: Nausea And Vomiting) 0RF potassium chloride 20 mEq tablet,ER particles/crystals 40 meq PO BID 0RF insulin aspart U-100 [Novolog U-100 Insulin aspart] 100 unit/mL solution See Rx Instructions .ROUTE .COMPLEX 0RF Rx Instructions: sliding scale before meals and bedtime if bs less than 60 call md 150-200=3 units 201-250=5 units 251-300=7 units 301-350=9 units 351-400=11 units if bs greater than 400 give 11 units don not notify pcp unless cbg > 400x 3 consecutive readings fluoxetine 10 mg capsule 10 mg PO DAILY@07 0RF docusate sodium [Stool Softener] 100 mg Capsule 100 mg PO DAILY@07 0RF gabapentin 300 mg Capsule 300 mg PO BEDTIME@19 0RF levothyroxine 200 mcg tablet 200 mcg PO DAILY@05 0RF Rx Instructions: Take with 25 mcg to equal 225 mcg daily metoclopramide HCl 10 mg tablet 10 mg PO BID 0RF nitrofurantoin monohyd/m-cryst 100 mg capsule 100 mg PO BID 0RF diclofenac sodium 1 % Gel See Rx Instructions .ROUTE .COMPLEX 0RF Rx Instructions: apply 2 g topically to upper extremities and 4 g to lower tid prn Eucerin Cream 1 applic TOPICAL DAILY 0RF Rx Instructions: rub eucerin to bilateral buttocks to help with itching diltiazem HCl 240 mg capsule,extended release 24hr 240 mg PO DAILY@07 0RF lisinopril 20 mg tablet 20 mg PO BEDTIME@19 0RF Eliquis 5 mg tablet 5 mg PO BID@, 0RF Tresiba FlexTouch U-100 100 unit/mL (3 mL) insulin pen 82 unit SUBCUT BEDTIME 0RF Zyrtec 10 mg Tablet 10 mg PO DAILY PRN (Reason: Allergy Symptoms) 0RF Vitamin C 500 mg Tablet 1,000 mg PO BID 0RF furosemide [Lasix] 40 mg tablet 40 mg PO DAILY Qty: 30 0RF atorvastatin 20 mg tablet 40 mg PO BEDTIME@19 Qty: 0 0RF aspirin 81 mg Tablet,Chewable 81 mg PO DAILY 0RF levothyroxine 25 mcg Tablet 25 mcg PO DAILY 0RF Rx Instructions: Take with 200mcg once daily to equal 225 mcg daily Novolog Flexpen U-100 Insulin 100 unit/mL (3 mL) insulin pen 50 unit SUBCUT TID 0RF Discharge Orders: Discharge ED (Routine); Ordered 10/18/21 Ordered By: Anthony Estrella Referrals: Akbar Torres DO [Primary Care Provider] - Patient Instructions: Opioid Safety Activity Restrictions/Additional Instructions: Leave nasal tampons in place until removed by ENT. civil engineering manager Jenelle arrangements for follow-up appointment. Coding Level of Care Code ED Marketing Agent for Elinor Moreno
[2021-10-18 14:27] LABS: Basophils # 0.1 10^3/uL (0.0-0.1); Basophils % 0.5 %; Eosinophils # 0.1 10^3/uL (0.0-0.8); Eosinophils % 0.6 %; Hematocrit 38.5 % (37.0-47.0); Hemoglobin 12.2 g/dL (11.5-15.3); Lymphocytes # 3.3 10^3/uL (0.8-4.8); Lymphocytes % 19.9 %; Mean Corpuscular HGB Conc 31.7 g/dL (30.0-36.0); Mean Corpuscular Hemoglobin 27.7 pg (28.0-34.0); Mean Corpuscular Volume 87.5 fl (81-99); Monocytes # 1.9 10^3/uL (0.2-0.9); Monocytes % 11.1 %; Neutrophils # 11.18 10^3/uL (1.8-7.7); Neutrophils % 67.2 %; Nucleated Red Blood Cells % 0 %; Platelet Count 405 10^3/cmm (130-400); Red Cell Distribution Width 15.5 % (12.1-15.1); White Blood Count 16.7 10^3/uL (4.0-10.0)
[2021-10-18 14:47] LABS: Glucose Point of Care 62 mg/dL (70-110)
--- NOTE | 2021-10-18 15:08 | XRR_ITS ---
PROCEDURE INFORMATION: Exam: XR Chest Exam date and time: 10/18/2021 3:15 PM Age: 66 years old Clinical indication: Dyspnea; Patient HX: HX of thyroid cancer TECHNIQUE: Imaging protocol: Radiologic exam of the chest. Views: 1 view. COMPARISON: CR (CHEST, ) 10/17/2021 2:49 AM FINDINGS: Lungs: Ill-defined bibasilar opacities. Pleural spaces: No apparent pleural effusion. No pneumothorax. Heart/Mediastinum: Similar cardiomegaly. Bones/joints: Visualized osseous structures are intact. XR/XR chest 1V portable [id number] IMPRESSION: Ill-defined bibasilar opacities which may reflect atelectasis or infiltrates.
[2021-10-18] MEDS: FUROsemide 10 mg/mL SDV 10mL 60 MG IVP (15:12)
[2021-10-18 15:23] LABS: Anion Gap 17.5 (5-19); Blood Urea Nitrogen 27 mg/dL (8-23); Carbon Dioxide 28 mmol/L (22-29); Chloride 99 mmol/L (98-107); Glomerular Filtration Rate 122.7 mL/min (90-130); Glucose 56 mg/dL (65-115); Osmolality Calculated 295 mOsm/kg (285-295); Potassium 3.5 mmol/L (3.5-5.1); Sodium 141 mmol/L (136-145)
[2021-10-18 15:48] LABS: NT Pro B Type Natriuretic Pept 3067 pg/mL (0-125)
[2021-10-18 16:14] LABS: Glucose Point of Care 65 mg/dL (70-110)
--- NOTE | 2021-10-18 16:48 | PM.HP ---
Providers/Chief Complaint Primary Care Provider: Akbar Torres DO Chief Complaint: nose bleed History of Present Illness Madelyn Olsen is a 66 year old female who is a resident of [facility], carries history of preserved action fraction heart failure, wheelchair-bound, leading sedentary lifestyle, has been on Eliquis for thromboembolic form now since COVID infection, presents today for worsening of hypoxia, uses 4 L of oxygen at baseline, today she experienced epistaxis as well. Daughter is at the bedside who is stating that she is eating etc. lifestyle does not follow-up with her sodium restricted diet, she is always has 3+ pitting edema. Yesterday she started having nasal bleed, Eliquis was discontinued, today her oxygen requirement was increasing that is why she was sent to the hospital. In the ER she was diagnosed with CHF exacerbation, patient is on 7 L nasal cannula, morbidly obese, signs of congestive heart failure present, family at the bedside, patient is not endorsing chest pain however endorsing orthopnea, PND, she sleeps in a recliner, today she was given 80 mg of Lasix at the halfway. In the ER she was diagnosed with CHF exacerbation she was given Lasix however her blood sugar was low there was no altered sensorium that was noted I have given her D50 1 amp Continue IV diuretics Will do CT scan to rule out pneumonia She has been given Levaquin in the ER Bilateral anterior nasal packing were done in the ER She is DNR/DNI Review of Systems Const: Reports: chills Eyes: Denies: change in vision ENMT: Denies: throat pain Card: Reports: swelling of feet/ankles and orthopnea; Denies: chest pain Resp: Reports: dyspnea GI: Denies: abdominal pain : Denies: flank pain Musc: Denies: neck pain Skin/Breast: Reports: lesions Neuro: Denies: headache(s) Psych: Reports: depression Endo: Denies: polyuria Osiel/Lymph: Denies: easy bruising All/Imm: Denies: urticaria Medications/Allergies Home Medications Medication Instructions Recorded Confirmed Last Taken Type albuterol sulfate 90 mcg/actuation 2 inh INHALATION Q4H PRN 12/31/19 09/03/21 12/12/20 History breath activated powder inhaler azelastine 137 mcg (0.1 %) nasal 2 spray INTRANASAL BID 12/31/19 09/03/21 09/03/21 History spray aerosol ferrous sulfate 325 mg (65 mg 325 mg PO .ON MON,SUN, Sun12/31/19 09/03/21 09/02/21 History iron) tablet pantoprazole 40 mg tablet,delayed 40 mg PO DAILY@07 12/31/19 09/03/21 09/03/21 History release acetaminophen 325 mg tablet 650 mg PO Q4H PRN 02/12/20 09/03/21 12/12/20 History bisacodyl 10 mg rectal suppository 10 mg DC DAILY PRN 02/12/20 09/03/21 12/12/20 History bisacodyl 5 mg tablet 10 mg PO DAILY PRN 02/12/20 09/03/21 12/12/20 History guaifenesin 400 mg tablet (Mucus 400 mg PO BID PRN 02/12/20 09/03/21 12/12/20 History Relief) magnesium hydroxide 400 mg/5 mL 30 ml PO DAILY PRN 02/12/20 09/03/21 12/12/20 History oral suspension (Milk of Magnesia) polyethylene glycol 3350 17 17 g PO DAILY 02/12/20 09/03/21 09/03/21 History gram/dose oral powder (ClearLax) sodium phosphates 19 gram-7 118 ml DC DAILY PRN 02/12/20 09/03/21 12/12/20 History gram/118 mL enema (Fleet Enema) methenamine hippurate 1 gram tablet 1 g PO BID #60 tab 02/26/20 09/03/21 09/03/21 Rx metoprolol tartrate 25 mg tablet 75 mg PO BID 09/20/20 09/03/21 09/03/21 History oxybutynin chloride 5 mg tablet 5 mg PO TID PRN 03/21/21 09/03/21 Unknown History apixaban 5 mg tablet (Eliquis) 5 mg PO BID@08/17/21 09/03/21 09/03/21 History ascorbic acid (vitamin C) 500 mg 1,000 mg PO BID 08/17/21 08/17/21 08/17/21 07:00 History tablet (Vitamin C) cetirizine 10 mg tablet (Zyrtec) 10 mg PO DAILY PRN 08/17/21 08/17/21 Unknown History diclofenac sodium 1 % topical gel See Rx Instructions .ROUTE .COMPLEX 08/17/21 09/03/21 Unknown History diltiazem HCl 240 mg 240 mg PO DAILY@08/17/21 09/03/21 09/03/21 History capsule,extended release 24 hr docusate sodium 100 mg capsule 100 mg PO DAILY@08/17/21 09/03/21 09/03/21 History (Stool Softener) fluoxetine 10 mg capsule 10 mg PO DAILY@08/17/21 09/03/21 09/03/21 History fluticasone 250 mcg-salmeterol 50 1 inh INHALATION BID 08/17/21 09/03/21 09/03/21 History mcg/dose blistr powdr for inhalation (Advair Diskus) gabapentin 300 mg capsule 300 mg PO BEDTIME@08/17/21 09/03/21 09/02/21 History insulin aspart U-100 100 unit/mL See Rx Instructions .ROUTE .COMPLEX 08/17/21 09/03/21 09/03/21 History subcutaneous solution (Novolog U-100 Insulin aspart) insulin degludec 100 unit/mL (3 82 unit SUBCUT BEDTIME 08/17/21 08/17/21 Unknown History mL) subcutaneous pen (Tresiba FlexTouch U-100 insulin) lanolin alcohols-mineral 1 applic TOPICAL DAILY 08/17/21 09/03/21 09/03/21 History oil-w.petrolatum-ceresin topical cream (Eucerin) levothyroxine 200 mcg tablet 200 mcg PO DAILY@08/17/21 09/03/21 09/03/21 History lisinopril 20 mg tablet 20 mg PO BEDTIME@08/17/21 09/03/21 09/02/21 History metoclopramide HCl 10 mg tablet 10 mg PO BID 08/17/21 09/03/21 09/03/21 History naloxone 0.4 mg/mL injection See Rx Instructions .ROUTE .COMPLEX 08/17/21 08/17/21 Unknown History solution nitrofurantoin 100 mg PO BID 08/17/21 09/03/21 09/03/21 History monohydrate/macrocrystals 100 mg capsule ondansetron HCl 4 mg tablet 4 - 8 mg PO Q6H PRN 08/17/21 09/03/21 08/30/21 History potassium chloride 20 mEq 40 meq PO BID 08/17/21 09/03/21 09/03/21 History tablet,extended release(part/cryst) atorvastatin 20 mg tablet 40 mg PO BEDTIME@19 #0 tab 08/18/21 09/03/21 09/02/21 Rx furosemide 40 mg tablet (Lasix) 40 mg PO DAILY #30 tab 08/18/21 09/03/21 09/03/21 Rx aspirin 81 mg chewable tablet 81 mg PO DAILY 09/03/21 09/03/21 09/03/21 History insulin aspart U-100 100 unit/mL 50 unit SUBCUT TID 09/03/21 09/03/21 09/03/21 History (3 mL) subcutaneous pen (Novolog Flexpen U-100 Insulin aspart) levothyroxine 25 mcg tablet 25 mcg PO DAILY 09/03/21 09/03/21 09/03/21 History Allergies Allergy/AdvReac Type Severity Reaction Status Date / Time No Known Allergies Allergy Verified 08/17/21 19:38 PFSH Acute PFSH: Medical History (HFpEF) heart failure with preserved ejection fraction -Echo: EF=60%, no RWMA, mild MR, moderate (new since 02/2016) Atrial fibrillation with RVR Chest pain Chronic cystitis COPD (chronic obstructive pulmonary disease) -oxygen dependent at baseline, 3 L requirement Depression Diabetes Elevated BUN GERD (gastroesophageal reflux disease) History of ESBL E. coli infection HTN (hypertension) Hypothyroidism -hx of papillary thyroid carcinoma s/p total thyroidectomy Morbid obesity -BMI-46 kg/m2 DENNYS (obstructive sleep apnea) Pyelonephritis TIA (transient ischemic attack) Urge incontinence Surgical History H/O cataract extraction H/O: hysterectomy S/P appendectomy S/P cholecystectomy S/P thyroidectomy Family History Father , 71 Stroke Mother , 83 CAD (coronary artery disease) Diabetes Lung disease Social History Smoking and tobacco status: never smoked Alcohol intake: never Caregiver/support person: Yes Household members: other Housing: [facility] Marital status: / Current occupational status: retired History of recent travel: No Vitals/I&O/Wt Last Vital Signs Temp 98.4 F 10/18/21 14:01 Pulse 85 10/18/21 14:01 Resp 16 10/18/21 14:01 BP 113/89 10/18/21 14:01 Pulse Ox 95 10/18/21 14:01 Weight last 48 hrs Weight 122.016 kg Physical Exam Narrative: Morbidly obese female Currently on 2 L nasal cannula In right lateral position 3+ pitting edema of lower extremity Signs of active congestive heart failure No active chest pain Bilateral breath sound with crackles at the base of the lungs Distended abdomen Family at the bedside Nonfocal neuro exam No signs of focal deficit Abdomen soft Data : 10/18/21 14:20 10/18/21 14:20 A&P Assessment and plan (1) Congestive heart failure: Status: Acute (2) Epistaxis: Status: Acute (3) On continuous oral anticoagulation: Status: Acute (4) Urge incontinence: Status: Acute (5) Chronic cystitis: Status: Acute (6) Hypoxia: Status: Acute Plan Acute on chronic hypoxia Because of anterior nasal packing, mild wheezing and CHF exacerbation Rule out pneumonia Will do CT chest without contrast I will keep her on Levaquin for now DuoNeb every 4 as needed Acute preserved ejection heart failure exacerbation Bilateral infiltrate related to CHF exacerbation I will keep her on IV diuretics Likely related to dietary indiscretion, possible sleep apnea, she is using 4 L [id number] Sedentary lifestyle I would not repeat echo at this point which was done recently Chronic anticoagulation Epistaxis, anterior bilateral nasal packing done in the ER Plan to keep the packing until 48 hours, keep her on Augmentin and Levaquin for now Plan to have ENT remove her anterior packing Stop aspirin and Eliquis Chronic cystitis without acute symptoms She was taking Eliquis for thromboembolic phenomena after COVID infection as per the family She is DNR/DNI goals of care discussed with the patient and her daughter who is DPOA Cardiac diet Hyperglycemia, hemoglobin A1c 7.6 which is reduced from 9 her insulin doses should be reduced, she took insulin last night however did not eat much today Attestations Medical Necessity Statement*: Anticipating more than 2 midnights for management epistaxis hyperglycemia and CHF exacerbation Time Spent in Patient Care: 50 Coding Level of Care Code Acute Railroad Car Loader for Chg Fwd Diagnoses Congestive heart failure I50.9 Epistaxis R04.0 On continuous oral anticoagulation Z79.01 Urge incontinence N39.41 Chronic cystitis N30.20 Hypoxia R09.02
[2021-10-18] MEDS: levofloxacin-dextrose 5 % 750 MG/150 ML PREMIX 100 MG IV (17:01)
[2021-10-18 17:16] VITALS: BP 113/89; PULSE 106; RESP 18; O2SAT 95
[2021-10-18 17:33] LABS: Estmated Average Glucose 169; Hemoglobin A1C 7.5 % (4.0-6.0)
[2021-10-18 17:35] LABS: Procalcitonin 0.03 ng/mL (0-0.5)
[2021-10-18 17:59] LABS: Glucose Point of Care 84 mg/dL (70-110)
[2021-10-18 18:46] VITALS: BMI 56.0
[2021-10-18 20:00] VITALS: BP 148/89; PULSE 111; RESP 19; TEMP 36.3; O2SAT 98
[2021-10-18 20:09] LABS: Thyroid Stimulating Hormone 6.11 uIU/mL (0.27-4.20)
[2021-10-18 20:26] VITALS: O2SAT 94
[2021-10-18 20:27] VITALS: PULSE 81; RESP 16; O2SAT 94
--- NOTE | 2021-10-18 20:31 | ECG_ITS ---
[facility] Test Date: 2021-10-18 Pat Name: Madelyn Olsen Department: Room: 252 Gender: Female Alteration Hand: : 1955 Requested By: Giacomo Bryan Order Number: [id number] Ran MD: Estuardo Gottlieb M.D. Measurements Intervals [place] Rate: 141 P: [place]: QRS: -32 QRSD: 144 T: 42 QT: 348 QTc: 535 Interpretive Statements ATRIAL FIBRILLATION WITH RAPID VENTRICULAR RESPONSE WITH ABERRANT CONDUCTION OR VENTRICULAR PREMATURE COMPLEXES LEFT AXIS DEVIATION [QRS AXIS < -30] RIGHT BUNDLE BRANCH BLOCK [120+ ms QRS DURATION, UPRIGHT V1, 40+ ms S IN I/aVL/V4/V5/V6] ST DEPRESSION, CONSIDER SUBENDOCARDIAL INJURY [0.1+ mV ST DEPRESSION] Compared to ECG 10/17/2021 03:32:01 Ventricular premature complex(es) now present Aberrant conduction of supraventricular beat(s) now present Left-axis deviation now present Right bundle-branch block now present ST (T wave) deviation now present Intraventricular conduction delay no longer present Electronically Signed On 10-19-2021 17:57:39 CDT by Etsuardo Gottlieb M.D. [email or web address]
[2021-10-18] MEDS: metoprolol tartrate 50 mg Tablet PO (20:45)
[2021-10-18 20:53] LABS: Glucose Point of Care 90 mg/dL (70-110)
[2021-10-18 23:43] LABS: Glucose Point of Care 90 mg/dL (70-110)
[2021-10-18 23:55] VITALS: PULSE 103
[2021-10-19] VITALS (29 sets, daily range): BP systolic 102–148; BP diastolic 57–100; PULSE 75–137; RESP 15–23; TEMP 36–36.7; O2SAT 91–98
--- NOTE | 2021-10-19 | CTR_ITS ---
PROCEDURE INFORMATION: Exam: CT Chest Without Contrast; Diagnostic Exam date and time: 10/19/2021 1:08 AM Age: 66 years old Clinical indication: Shortness of breath; Additional info: Pneumonia versus chf, worsening hypoxia TECHNIQUE: Imaging protocol: Diagnostic computed tomography of the chest without contrast. Radiation optimization: All CT scans at this facility use at least one of these dose optimization techniques: automated exposure control; mA and/or kV adjustment per patient size (includes targeted exams where dose is matched to clinical indication); or iterative reconstruction. COMPARISON: CR XR chest 1V portable [id number] 10/18/2021 3:15 PM RADIATION DOSE METRICS: Total DLP (mGy-cm): 701.71 FINDINGS: Lungs: Groundglass density throughout both lungs consistent with probable pulmonary edema versus pneumonitis. Probable pneumonia consolidation at the right lung base. Pleural spaces: There is a large right pleural effusion. No pneumothoraces. Heart: Cardiomegaly with coronary artery and valvular calcifications. Lymph nodes: Unremarkable. No enlarged lymph nodes. Vasculature: Unremarkable. No aortic aneurysm. Liver: Nodular and heterogeneous liver consistent with probable cirrhosis. Gallbladder and bile ducts: The patient has had a cholecystectomy. Intraperitoneal space: There is a large amount of free fluid throughout the upper abdomen. Bones/joints: Unremarkable. No acute fracture. Soft tissues: Unremarkable. CT/CT chest wo con [id number] IMPRESSION: 1. Cardiomegaly with pulmonary edema consistent with congestive failure. 2. Right lung base pneumonia with large pleural effusion. 3. Cirrhosis with ascites. 4. Status post cholecystectomy.
[2021-10-19] MEDS: potassium chloride ER 20 mEq Tablet PO ×2 (00:32→08:17)
[2021-10-19] MEDS: metoprolol tartrate 1 mg/1 mL SDV 5 mL 2.5 MG IVP ×2 (00:32→06:31)
[2021-10-19] MEDS: acetaminophen 500 mg Tablet PO ×4 (01:28→23:56)
[2021-10-19 02:36] LABS: Glucose Point of Care 124 mg/dL (70-110)
[2021-10-19 02:51] LABS: Magnesium 1.7 mg/dL (1.7-2.3)
[2021-10-19 03:45] LABS: Basophils # 0.1 10^3/uL (0.0-0.1); Basophils % 0.5 %; Eosinophils % 0.1 %; Hemoglobin 11.4 g/dL (11.5-15.3); Lymphocytes # 2.2 10^3/uL (0.8-4.8); Lymphocytes % 13.7 %; Mean Corpuscular HGB Conc 31.7 g/dL (30.0-36.0); Mean Corpuscular Hemoglobin 27.4 pg (28.0-34.0); Mean Corpuscular Volume 86.5 fl (81-99); Mean Platelet Volume 10.1 fL (7.4-10.4); Monocytes # 1.8 10^3/uL (0.2-0.9); Monocytes % 11.2 %; Neutrophils # 11.62 10^3/uL (1.8-7.7); Neutrophils % 73.8 %; Nucleated Red Blood Cells % 0 %; Platelet Count 361 10^3/cmm (130-400); Red Blood Count 4.16 10^6/uL (4.1-5.3); Red Cell Distribution Width 15.5 % (12.1-15.1); White Blood Count 15.7 10^3/uL (4.0-10.0)
[2021-10-19 04:05] LABS: Blood Urea Nitrogen 22 mg/dL (8-23); C Reactive Protein 16.5 mg/L (0.0-4.9); Calcium 8.7 mg/dL (8.5-10.5); Carbon Dioxide 31 mmol/L (22-29); Chloride 103 mmol/L (98-107); Glomerular Filtration Rate 158.7 mL/min (90-130); Glucose 108 mg/dL (65-115); Magnesium 1.7 mg/dL (1.7-2.3); Osmolality Calculated 304 mOsm/kg (285-295); Sodium 145 mmol/L (136-145)
[2021-10-19 04:13] LABS: Glucose Point of Care 106 mg/dL (70-110)
[2021-10-19] MEDS: FUROsemide 10 mg/mL SDV 10mL 80 MG IVP ×2 (06:29→17:29)
[2021-10-19 06:56] LABS: Glucose Point of Care 113 mg/dL (70-110)
[2021-10-19] MEDS: levoFLOXacin 750 mg Tablet PO (08:17)
[2021-10-19] MEDS: amoxicillin-clav 875-125 mg Tablet 1 TAB PO ×2 (08:17→17:30)
[2021-10-19] MEDS: sennosides-docusate Tablet 1 TAB PO (08:17)
[2021-10-19] MEDS: metoprolol tartrate 50 mg Tablet PO (08:18)
[2021-10-19] MEDS: dilTIAZem ER (24HR) 240 mg Capsule PO (08:18)
--- NOTE | 2021-10-19 08:24 | US_ITS ---
WS: [id number] ULTRASOUND-GUIDED THORACENTESIS, RIGHT HISTORY: large pleural effusion Procedure, risks, and complications were explained to the patient. With the patient in an upright pos ition, the skin over the RIGHT posterior thorax was cleansed with ChloraPrep and anesthetized with 1% buffered lidocaine. A 5 Amharic Yueh needle is inserted into the pleural fluid without complication. Approximately 660 cc of tea pleural fluid is removed without difficulty. Specimen collected for analysis as requested. / thoracentesis [id number] IMPRESSION: 1. RIGHT thoracentesis yielding 660 cc of fluid. 2. Chest radiograph to follow to evaluate for pneumothorax. 3. Pleural fluid specimen collected for analysis as requested.
[2021-10-19 08:32] LABS: Glucose Point of Care 119 mg/dL (70-110)
[2021-10-19 09:29] LABS: INR 1.35 (0.8-1.2)
[2021-10-19] MEDS: metoprolol tartrate 50 mg Tablet 25 MG PO (10:01)
[2021-10-19] MEDS: metOLazone 5 MG Tablet 2.5 MG PO (10:01)
[2021-10-19 10:32] LABS: Glucose Point of Care 199 mg/dL (70-110)
[2021-10-19 11:16] LABS: Glucose Point of Care 165 mg/dL (70-110)
[2021-10-19] MEDS: dilTIAZem 5 mg/mL SDV 5 mL 10 MG IVP (12:05)
[2021-10-19 13:23] LABS: Glucose Point of Care 170 mg/dL (70-110)
--- NOTE | 2021-10-19 13:49 | XR_ITS ---
WS: [id number] PORTABLE CHEST HISTORY: post Thoracentesis, RIGHT COMPARISON: 10/18/2021 Patient is significantly rotated to the RIGHT. No pneumothorax identified. Lungs are hyperinflated. Mild diffuse haziness and thickening of the interstitium is probably due to mild fluid overload. No pleural effusion or pneumothorax. Cardiac size: Moderately enlarged. Mediastinum/Aorta: Mediastinum is wide but this is probably related to rotation of the patient. No osseous abnormality seen. XR/XR chest 1V portable [id number] IMPRESSION: 1. No pneumothorax status post RIGHT thoracentesis. 2. Quality of examination is limited by significant rotation causing the media stinum to appear wide. 3. Mild pulmonary edema. 4. Cardiomegaly.
[2021-10-19 15:05] LABS: Glucose Point of Care 185 mg/dL (70-110)
--- NOTE | 2021-10-19 15:26 | DCPLANNER ---
Addendum entered by Winnie York 11/07/21 09:30: An appointment was scheduled for 10.26.21 with ENT - appointment cancelled Original Note: facility manager histology had message to schedule a follow up appointment for patient with ENT. facility manager histology sent patients information to the front office staff at ENT. Patients information will be printed and reviewed. Clinic will call patient with appointment information.
[2021-10-19 16:17] LABS: Glucose Point of Care 194 mg/dL (70-110)
[2021-10-19] MEDS: insulin lispro 100 unit/1 mL SUBCUT (17:30)
[2021-10-19 17:31] LABS: Glucose Point of Care 183 mg/dL (70-110)
[2021-10-19 18:11] LABS: Cyto Order Verification Order Verified
--- NOTE | 2021-10-19 18:28 | PM.PN ---
Subjective Subjective: Seen this morning. Overnight patient had A. fib RVR and was given IV metoprolol. This morning she is still uncontrolled therefore Cardizem drip has been started and she is being moved to the CSU unit area. Patient will go for thoracentesis today for large pleural effusion seen on CT. Otherwise she feels fine right now is denying any active shortness of breath or feeling of palpitations. On 6 L nasal cannula at this time. Vitals/I&O/Wt Last Vital Signs Temp 98.0 F 10/19/21 15:57 Pulse 83 10/19/21 15:57 Resp 16 10/19/21 15:57 BP 103/77 10/19/21 15:57 Pulse Ox 96 10/19/21 15:57 10/19/21 10/19/21 10/19/21 06:59 14:59 22:59 Intake Total 480 / 480 237 / 717 Balance 480 / 480 237 / 717 Weight last 48 hrs Weight 134.581 kg Weight 122.016 kg Physical Exam Narrative: General: Alert oriented x3, patient seen sitting up in bed. No acute distress or conversational dyspnea however she is on 6 L nasal cannula and generally appears unwell. Obese large rounded abdomen. HEENT: Normocephalic, atraumatic, EOMI, breathing comfortably on 6 L nasal cannula Cardio: Irregularly irregular, tachycardic, normal S1-S2, no murmurs Respiratory: Bilateral bibasilar crackles present GI: Abdomen soft, nontender, nondistended, bowel sounds + Behavior: Cooperative Extremities: 3+ pitting pedal edema, generalized edema bilateral lower extremities, no cyanosis Data : 10/19/21 03:18 10/19/21 03:18 Micro: Microbiology 10/18/21 16:50 Blood Culture - Preliminary Blood NEGATIVE TO DATE 10/18/21 16:42 Blood Culture - Preliminary Blood NEGATIVE TO DATE A&P Assessment and plan (1) Hypoxia: Status: Acute (2) Congestive heart failure: Status: Acute (3) Epistaxis: Status: Acute (4) On continuous oral anticoagulation: Status: Acute (5) Urge incontinence: Status: Acute (6) Chronic cystitis: Status: Acute Plan #Acute on chronic congestive heart failure, preserved ejection fraction #Large right pleural effusion #Atrial fibrillation with RVR #Hypertension #Hyperlipidemia #Epistaxis, on chronic anticoagulation #Diabetes mellitus, insulin-dependent complicated by peripheral neuropathy #Depression #Hypothyroidism ? Patient to go for thoracentesis today. Chest CT did show large pleural effusion ? Continue Lasix 80 IV twice daily. Add metolazone ? Continue to wean down oxygen to her baseline ? Place Ibanez catheter ? Continue nasal packing that was done in ER. Continue Augmentin and Levaquin. Will discuss with ENT to have nasal packing removed either prior to discharge or as an outpatient. Will discuss with ENT over the phone. ? Stop aspirin and Eliquis for now ? Patient is DNR/DNI. Events as of 5:30 PM. -I was later called by RN that family is here wanting to discuss goals of care. I went bedside and saw the patient in presence of her daughter who is DPOA and patient's son. Patient, daughter, son all in agreement that patient would like to go back to the group home with hospice tomorrow morning regardless of what her heart rate is. [facility] and will allow me to tweak her medications by tomorrow regardless of how she is doing she would like to go home with hospice. I had an extensive discussion with the family and the patient in regards to quality of life and what it means to go on hospice. Patient completely understands and would like to stop aggressive treatment at this time. She would like to focus on quality. She would like to keep her diuretics going and some rate control medications but otherwise does not want further treatment. She would like to speak to [address] [place] [address]. I will reach out to case management in a.m. and have this arranged to send patient back to group home tomorrow. They also state that once patient is back at the group home and if she gets acutely ill they would not like to send her back to the hospital. DNR/DNI DVT prophylaxis: None for now. We will use SCDs if needed. Attestations Medical Necessity Statement*: Send to group home with hospice in a.m. Coding Level of Care Code Acute Soaping Department Supervisor for Elinor Moreno Diagnoses Hypoxia R09.02 Congestive heart failure I50.9 Epistaxis R04.0 On continuous oral anticoagulation Z79.01 Urge incontinence N39.41 Chronic cystitis N30.20
[2021-10-19 18:56] LABS: Total Protein Body Fluid 3.5 g/dL; Triglycerides Body Fluid 56 mg/dL (0-150)
[2021-10-19 18:57] LABS: Pleural Fluid Albumin 2.2 g/dL
[2021-10-19] MEDS: dilTIAZem 60 mg Tablet PO ×2 (19:40→23:53)
[2021-10-19 19:49] LABS: Glucose Point of Care 169 mg/dL (70-110)
--- NOTE | 2021-10-19 19:55 | PC.NURSE ---
1340 Dr Pineda at bedside to perform thoracentesis, procedure reviewed with pt, consent signed. 660 ml of fluid removed. pt tolerated well. chest x-ray performed following procedure.
[2021-10-19 19:58] LABS: Total Protein Pleural Fluid 3.5 g/dL
[2021-10-19 19:59] LABS: LDH Pleural Fluid 134 U/L; Pleural Fluid Triglycerides 56 mg/dL
[2021-10-19] MEDS: metoprolol tartrate 50 mg Tablet 100 MG PO (20:16)
--- NOTE | 2021-10-19 20:36 | PC.NURSE ---
i reported low temp 97.5 and high pulse 122 to nurse
[2021-10-19 21:29] LABS: Glucose Point of Care 172 mg/dL (70-110)
--- NOTE | 2021-10-19 22:05 | PC.NURSE ---
Spoke with Miguel regarding patients every 2 hour accu checks. The patients accuchecks have been between 100-190s with the last check 172. said ok to d/c every 2 hour and continue ACHS checks.
[2021-10-20] VITALS (11 sets, daily range): BP systolic 92–120; BP diastolic 54–88; PULSE 82–109; RESP 15–18; TEMP 36.3–36.7; O2SAT 91–96
[2021-10-20 04:26] LABS: Basophils # 0.1 10^3/uL (0.0-0.1); Basophils % 0.5 %; Eosinophils % 0.3 %; Hematocrit 34.9 % (37.0-47.0); Hemoglobin 10.8 g/dL (11.5-15.3); Lymphocytes # 1.8 10^3/uL (0.8-4.8); Lymphocytes % 12.2 %; Mean Corpuscular HGB Conc 30.9 g/dL (30.0-36.0); Mean Corpuscular Hemoglobin 27.3 pg (28.0-34.0); Mean Corpuscular Volume 88.1 fl (81-99); Mean Platelet Volume 10.2 fL (7.4-10.4); Monocytes # 1.9 10^3/uL (0.2-0.9); Monocytes % 13.1 %; Neutrophils # 10.67 10^3/uL (1.8-7.7); Neutrophils % 73.3 %; Nucleated Red Blood Cells % 0 %; Platelet Count 337 10^3/cmm (130-400); Red Blood Count 3.96 10^6/uL (4.1-5.3); Red Cell Distribution Width 15.8 % (12.1-15.1); White Blood Count 14.6 10^3/uL (4.0-10.0)
[2021-10-20 04:45] LABS: Blood Urea Nitrogen 19 mg/dL (8-23); Carbon Dioxide 35 mmol/L (22-29); Chloride 97 mmol/L (98-107); Glomerular Filtration Rate 158.7 mL/min (90-130); Glucose 175 mg/dL (65-115); Magnesium 1.5 mg/dL (1.7-2.3); Osmolality Calculated 305 mOsm/kg (285-295); Sodium 144 mmol/L (136-145)
[2021-10-20 04:49] LABS: Anion Gap 15.4 (5-19); Potassium 3.4 mmol/L (3.5-5.1)
[2021-10-20] MEDS: FUROsemide 10 mg/mL SDV 10mL 80 MG IVP (05:30)
[2021-10-20] MEDS: dilTIAZem 60 mg Tablet PO ×3 (05:45→18:06)
[2021-10-20 06:29] LABS: Glucose Point of Care 180 mg/dL (70-110)
--- NOTE | 2021-10-20 08:41 | PM.DCS ---
Discharge Providers Date of Admission: 10/18/21 17:05 Date of Discharge: October 20, 2021 Attending Provider at Admission: Darrion Foster MD Attending Provider at Discharge: Nataliia Sebastian MD Primary Care Provider: Akbar oTrres DO Diagnoses at Discharge Discharge Diagnosis (1) Hypoxia: Status: Acute (2) Congestive heart failure: Status: Acute (3) Epistaxis: Status: Acute (4) On continuous oral anticoagulation: Status: Acute (5) Urge incontinence: Status: Acute (6) Chronic cystitis: Status: Acute Reason for Visit Reason for Visit: nose bleed Brief History: As per HPI Madelyn Olsen is a 66 year old female who is a resident of [facility], carries history of preserved action fraction heart failure, wheelchair-bound, leading sedentary lifestyle, has been on Eliquis for thromboembolic form now since COVID infection, presents today for worsening of hypoxia, uses 4 L of oxygen at baseline, today she experienced epistaxis as well.? Daughter is at the bedside who is stating that she is eating etc. lifestyle does not follow-up with her sodium restricted diet, she is always has 3+ pitting edema. Yesterday she started having nasal bleed, Eliquis was discontinued, today her oxygen requirement was increasing that is why she was sent to the hospital.? In the ER she was diagnosed with CHF exacerbation, patient is on 7 L nasal cannula, morbidly obese, signs of congestive heart failure present, family at the bedside, patient is not endorsing chest pain however endorsing orthopnea, PND, she sleeps in a recliner, today she was given 80 mg of Lasix at the prison. In the ER she was diagnosed with CHF exacerbation she was given Lasix however her blood sugar was low there was no altered sensorium that was noted I have given her D50 1 amp Continue IV diuretics Will do CT scan to rule out pneumonia She has been given Levaquin in the ER Bilateral anterior nasal packing were done in the ER She is DNR/DNI Hospital Course Hospital Course Patient was admitted for heart failure exacerbation. She was found to have a large right pleural effusion as well. She also had atrial fibrillation with RVR. Initially on admission she had epistaxis for which nasal packing was done. Patient underwent thoracentesis during this hospital stay which had 600 cc fluid removed. For atrial fibrillation she was placed on Cardizem drip as she was uncontrolled on her regular medications. Metoprolol was increased to 100 twice daily. While she was still on the drip I was requested by family to come see them to have a discussion regarding patient's goals of care. Patient and her daughter and son were present in the room. They all were in agreement that patient should go back [facility] with hospice care. They stated this is her third hospitalization and the patient herself said that she is tired now and does not want to have any further aggressive measures. I did tell her that her heart rate was still elevated and we could potentially stop all medications and go comfort care route versus to focus on quality of life to have her comfortable with minimal medications that she needs. Patient decided to go to prison in the morning with hospice regardless of what her heart rate or vitals would be at that time. She just wanted to be kept comfortable at this time. Daughter and son in agreement. They would like to go with [address] [place] [address]. Referral was placed. She will be sent to prison today with referral to [address] [place] [address]. I have stopped some of her medications and continued her Lasix at a lower dose, AV jailyn blocking agent. We will complete Augmentin for 5 more days for her UTI. I discussed with ENT regarding her nasal packing. Plan is to leave nasal packing in for now since she was on Eliquis. Aspirin and Eliquis have been stopped at this point. She will see ENT as an outpatient to have the nasal packing removed within 4 to [address] Ruiz is aware of her case. She was seen again this morning and patient again endorsed her wishes of wanting to go on hospice. We will discharge her in stable condition. We will update her daughter over the phone. Off note her oxygen requirement has come down to her baseline of 4 L. She will follow up further with her primary care at the prison. Physical Exam Narrative: General: Alert oriented x3, patient seen sitting up in bed.? HEENT: Normocephalic, atraumatic, EOMI, breathing comfortably on 4 L nasal cannula Cardio: Irregularly irregular,rate controlled, normal S1-S2, no murmurs Respiratory: Lungs clear to auscultation b/l GI: Abdomen soft, nontender, nondistended, bowel sounds + Behavior: Cooperative Extremities: 3+ pitting pedal edema, generalized edema bilateral lower extremities, no cyanosis Urinary Catheter Management: Ibanez: Cath Placed During This Visit: yes Reason for Continuing Indwelling Catheter: Acute Urinary Retention or Obstruction Urinary Catheter Date of Insertion: 10/19/21 Urinary Catheter Time of Insertion: 10:00 Discharge Data Studies Completed and Pending Completed Studies During Hospitalization Category Date Time Status CT chest wo con [id number] Stat Cat Scan 10/19/21 Completed XR chest 1V portable [id number] Stat Exams 10/18/21 15:08 Completed XR chest 1V portable [id number] Stat Exams 10/19/21 13:49 Completed US thoracentesis [id number] Urgent Ultrasound 10/19/21 08:24 Completed Pending at discharge Category Date Time Status Blood Culture Stat Lab 10/18/21 16:50 Results Body Fluid Culture & GS Stat Lab 10/19/21 14:00 Received Radiology Impressions Chest CT 10/19/21 00:00 IMPRESSION: 1. Cardiomegaly with pulmonary edema consistent with congestive failure. 2. Right lung base pneumonia with large pleural effusion. 3. Cirrhosis with ascites. 4. Status post cholecystectomy. Thoracentesis Ultrasound 10/19/21 08:24 IMPRESSION: 1. RIGHT thoracentesis yielding 660 cc of fluid. 2. Chest radiograph to follow to evaluate for pneumothorax. 3. Pleural fluid specimen collected for analysis as requested. Chest X-Ray 10/19/21 13:49 IMPRESSION: 1. No pneumothorax status post RIGHT thoracentesis. 2. Quality of examination is limited by significant rotation causing the mediastinum to appear wide. 3. Mild pulmonary edema. 4. Cardiomegaly. Laboratory Results WBC 14.6 10^3/uL (4.0-10.0) H 10/20/21 04:17 RBC 3.96 10^6/uL (4.1-5.3) L 10/20/21 04:17 Hgb 10.8 g/dL (11.5-15.3) L 10/20/21 04:17 Hct 34.9 % (37.0-47.0) L 10/20/21 04:17 MCV 88.1 fl (81-99) 10/20/21 04:17 MCH 27.3 pg (28.0-34.0) L 10/20/21 04:17 MCHC 30.9 g/dL (30.0-36.0) 10/20/21 04:17 RDW 15.8 % (12.1-15.1) H 10/20/21 04:17 Plt Count 337 10^3/cmm (130-400) 10/20/21 04:17 MPV 10.2 fL (7.4-10.4) 10/20/21 04:17 Neut % (Auto) 73.3 % 10/20/21 04:17 Lymph % (Auto) 12.2 % 10/20/21 04:17 [place] % (Auto) 13.1 % 10/20/21 04:17 Eos % (Auto) 0.3 % 10/20/21 04:17 Baso % (Auto) 0.5 % 10/20/21 04:17 Neut # (Auto) 10.67 10^3/uL (1.8-7.7) H 10/20/21 04:17 Lymph # (Auto) 1.8 10^3/uL (0.8-4.8) 10/20/21 04:17 [place] # (Auto) 1.9 10^3/uL (0.2-0.9) H 10/20/21 04:17 Eos # (Auto) 0.0 10^3/uL (0.0-0.8) 10/20/21 04:17 Baso # (Auto) 0.1 10^3/uL (0.0-0.1) 10/20/21 04:17 Nucleated RBC % (auto) 0 % 10/20/21 04:17 Nucleated RBCs # 0.0 /100WBC 10/20/21 04:17 PT 17.00 SECONDS (12.1-14.9) H 10/19/21 09:10 INR 1.35 (0.8-1.2) H 10/19/21 09:10 Sodium 144 mmol/L (136-145) 10/20/21 04:17 Potassium 3.4 mmol/L (3.5-5.1) L 10/20/21 04:17 Chloride 97 mmol/L (98-107) L 10/20/21 04:17 Carbon Dioxide 35 mmol/L (22-29) H 10/20/21 04:17 Anion Gap 15.4 (5-19) 10/20/21 04:17 BUN 19 mg/dL (8-23) 10/20/21 04:17 Creatinine 0.4 mg/dL (0.5-0.9) L 10/20/21 04:17 GFR Calculation 158.7 mL/min (90-130) H 10/20/21 04:17 Glucose 175 mg/dL (65-115) H 10/20/21 04:17 POC Glucose 180 mg/dL (70-110) H 10/20/21 06:22 Estimat Average Glucose 169 10/18/21 Unknown Hemoglobin A1c 7.5 % (4.0-6.0) H 10/18/21 Unknown Calculated Osmolality 305 mOsm/kg (285-295) H 10/20/21 04:17 Calcium 9.0 mg/dL (8.5-10.5) 10/20/21 04:17 Magnesium 1.5 mg/dL (1.7-2.3) L 10/20/21 04:17 C-Reactive Protein 16.5 mg/L (0.0-4.9) H 10/19/21 03:18 NT-Pro-B Natriuret Pep 3067 pg/mL (0-125) H 10/18/21 14:20 Procalcitonin 0.03 ng/mL (0-0.5) 10/18/21 Unknown TSH 6.11 uIU/mL (0.27-4.20) H 10/18/21 14:20 Fluid pH 8.0 10/19/21 14:00 Fluid Total Protein 3.5 g/dL 10/19/21 14:00 Fluid Triglycerides 56 mg/dL (0-150) 10/19/21 14:00 Pleural Total Protein 3.5 g/dL 10/19/21 14:00 Pleural Albumin 2.2 g/dL 10/19/21 14:00 Pleural LDH 134 U/L 10/19/21 14:00 Pleural Triglycerides 56 mg/dL 10/19/21 14:00 Vitals Last Vital Signs Temp 97.8 F 10/20/21 04:00 Pulse 104 H 10/20/21 07:26 Resp 18 10/20/21 07:26 BP 107/80 10/20/21 04:00 Pulse Ox 94 10/20/21 07:26 Discharge Plan Discharge Patient Disposition: Hospice - Medical Facility Condition: Stable Prescriptions: New amoxicillin-pot clavulanate 875-125 mg Tablet 1 tab PO BID 5 Days Qty: 10 0RF Continued albuterol sulfate 90 mcg/actuation aerosol powdr breath activated 2 inh INHALATION Q4H PRN (Reason: Shortness Of Breath) 0RF acetaminophen 325 mg Tablet 650 mg PO Q4H PRN (Reason: Pain) 0RF magnesium hydroxide [Milk of Magnesia] 400 mg/5 mL Suspension 30 ml PO DAILY PRN (Reason: Constipation) 0RF Rx Instructions: if no bm in 3 days bisacodyl 10 mg Suppository 10 mg [place] DAILY PRN (Reason: Constipation) 0RF Rx Instructions: IF NO RESULTS FROM MOM Fleet Enema 19-7 gram/118 mL Enema 118 ml [place] DAILY PRN (Reason: Constipation) 0RF Rx Instructions: NEEDED IF NO RESULTS FROM DULCOLAX, IF STILL NO RESULTS, CALL DOCTOR. polyethylene glycol 3350 [ClearLax] 17 gram/dose Powder 17 g PO DAILY 0RF bisacodyl 5 mg Tablet 10 mg PO DAILY PRN (Reason: Constipation) 0RF Rx Instructions: [place] [facility] guaifenesin [Mucus Relief] 400 mg Tablet 400 mg PO BID PRN (Reason: Congestion) 0RF fluticasone propion-salmeterol [Advair Diskus] 250-50 mcg/dose Blister With Device 1 inh INHALATION BID 0RF insulin aspart U-100 [Novolog U-100 Insulin aspart] 100 unit/mL solution See Rx Instructions .ROUTE .COMPLEX 0RF Rx Instructions: sliding scale before meals and bedtime if bs less than 60 call md 150-200=3 units 201-250=5 units 251-300=7 units 301-350=9 units 351-400=11 units if bs greater than 400 give 11 units don not notify pcp unless cbg > 400x 3 consecutive readings docusate sodium [Stool Softener] 100 mg Capsule 100 mg PO DAILY@07 0RF diclofenac sodium 1 % Gel See Rx Instructions .ROUTE .COMPLEX 0RF Rx Instructions: apply 2 g topically to upper extremities and 4 g to lower tid prn Eucerin Cream 1 applic TOPICAL DAILY 0RF Rx Instructions: rub eucerin to bilateral buttocks to help with itching diltiazem HCl 240 mg capsule,extended release 24hr 240 mg PO DAILY@07 0RF Zoloft 25 mg Tablet 25 mg PO DAILY 0RF levothyroxine 112 mcg Capsule 112 mcg PO DAILY 0RF levothyroxine 100 mcg Capsule 100 mcg PO DAILY 0RF Lasix 40 mg tablet 40 mg PO DAILY Qty: 30 0RF Changed potassium chloride 20 mEq tablet,ER particles/crystals 40 meq PO DAILY Qty: 0 0RF metoprolol tartrate 25 mg tablet 100 mg PO BID Qty: 0 0RF Held Tresiba FlexTouch U-100 100 unit/mL (3 mL) insulin pen 100 unit SUBCUT BEDTIME 0RF Hold Instructions: see pcp Discontinued ferrous sulfate 325 mg (65 mg iron) tablet 325 mg PO .ON MON,SUN, SUN 0RF pantoprazole 40 mg tablet,delayed release (DR/EC) 40 mg PO DAILY@07 0RF methenamine hippurate 1 gram tablet 1 g PO BID Qty: 60 12RF Rx Instructions: Take 1000 mg of vitamin C with each dose of methenamine ondansetron HCl 4 mg Tablet 4 - 8 mg PO Q6H PRN (Reason: Nausea And Vomiting) 0RF gabapentin 300 mg Capsule 300 mg PO BEDTIME@19 0RF metoclopramide HCl 10 mg tablet 10 mg PO BID 0RF lisinopril 20 mg tablet 20 mg PO BEDTIME@19 0RF Eliquis 5 mg tablet 5 mg PO BID@07,19 0RF cetirizine [Zyrtec] 10 mg Tablet 10 mg PO DAILY PRN (Reason: Allergy Symptoms) 0RF ascorbic acid (vitamin C) [Vitamin C] 500 mg Tablet 1,000 mg PO BID 0RF atorvastatin 20 mg tablet 40 mg PO BEDTIME@19 Qty: 0 0RF aspirin 81 mg Tablet,Chewable 81 mg PO DAILY 0RF insulin aspart U-100 [Novolog Flexpen U-100 Insulin] 100 unit/mL (3 mL) insulin pen 100 unit SUBCUT TID 0RF [facility] 50 mg-15 unit- 4.5 mg-2.5 mg Tablet,Chewable 2 tab PO DAILY 0RF Discharge Orders: Discharge Order (Routine); Ordered 10/20/21 Ordered By: Nataliia Sebastian Referrals: Ashwin Mead MD [Physician] - 4-7 days (You have a follow up appointment on October 26 at 9:30am For removal of nasal packing. Please see within 4-[address] Mead aware (discussed with him). ) [facility], [Staff Physician] - Akbar Torres DO [Primary Care Provider] - 4-7 days [facility], [Occupational Therapist] - 1-3 days Discharge Diet: Cardiac, Diabetic and Low Salt Discharge Activity: Limit activity as instructed and Oxygen as instructed Activity Restrictions/Additional Instructions: Leave nasal tampons in place until removed by ENT. parking enforcement manager Jenelle arrangements for follow-up appointment. Discharge Attestations Time Spent in Discharge Care*: greater than 30 min Status at Discharge: Cognitive status at discharge: cognitively intact, Behavioral status at discharge: cooperative and dependent in ADL's, Quality Metrics Clinical Quality Measures [ No reported AMI, CVA or VTE this stay] Coding Level of Care Code Acute Chg FW DC note Diagnoses Hypoxia R09.02 Congestive heart failure I50.9 Epistaxis R04.0 On continuous oral anticoagulation Z79.01 Urge incontinence N39.41 Chronic cystitis N30.20
[2021-10-20] MEDS: metoprolol tartrate 50 mg Tablet 100 MG PO ×2 (09:51→20:04)
[2021-10-20] MEDS: potassium chloride ER 20 mEq Tablet PO (09:51)
[2021-10-20] MEDS: metOLazone 5 MG Tablet 2.5 MG PO (09:51)
[2021-10-20] MEDS: amoxicillin-clav 875-125 mg Tablet 1 TAB PO ×2 (09:51→18:03)
[2021-10-20] MEDS: sennosides-docusate Tablet 1 TAB PO (09:52)
[2021-10-20] MEDS: insulin lispro 100 unit/1 mL SUBCUT ×3 (09:52→18:03)
--- NOTE | 2021-10-20 11:09 | PC.CHAP ---
Pastoral Care Encounter/Spiritual Assessment Type of Contact [] Declined consulting solution manager visit [] Patient/Family/Request visit [] Outpatient visit [] Follow-up visit [] Physician referral [] Code/Alert [x] Routine visit [] Staff referral [] Actively dying [] Patient sleeping [] Family support [] [] Out of room [] Palliative care [] [] Receiving care in room [] Pre-surgical visit [] Trauma [x] Long length of stay [] ICU visit [x] Other: under staff care Relational/Emotional Strength [] Patient feels connected with others/family/visitors/staff [] Distress [] Loneliness/isolation [] Abandonment Spirituality of Patient [] Person of Kelli [] Attends Mormonism of their Kelli [] Believes in Prayer [] Reads Bible or Jainism materials [] There are Spiritual issues to be addressed Traffic Administrator Interventions [] Prayer [] Active listening [] Non-anxious presence [] Spiritual/emotional support [] Crisis/trauma care [] Spiritual counseling [] Bereavement support [] Provided bereavement packet [] Provided Bible/devotional materials [] Provided toy/stuffed animal, coloring book to patient or family member [] Provided Communion [] Anointing/[place] [] Salvation [] Completed spiritual assessment [] Other: Impact on Illness or Injury [] Angry [] Fearful [] Anxious [] Often cries [] Exhaustion [] Unable to work [] Unable to attend adventist [] Unable to walk/stand [] Unable to read [] Unable to drive [] Unable to eat/drink [] Unable to sleep [] Unable to be with family [] Patient intubated [] Other: Summary under staff care Time spent with patient 5 mins
[2021-10-20 12:22] LABS: Glucose Point of Care 226 mg/dL (70-110)
[2021-10-20 14:09] LABS: SARS Covid-2 Antigen Negative (Negative)
[2021-10-20] MEDS: magnesium oxide 400 mg tablet PO (14:56)
[2021-10-20] MEDS: potassium chloride ER 20 mEq Tablet 40 MEQ PO (14:57)
[2021-10-20 17:30] LABS: Glucose Point of Care 182 mg/dL (70-110)
--- NOTE | 2021-10-20 18:06 | PC.NURSE ---
patient taken to [facility] wheel chair van upon attempting to enter patient was unable to be assisted up shannan after trying multiple wheel chairs ride up graded to codi NEw trip # [phone]
--- NOTE | 2021-10-20 18:40 | PC.NURSE ---
14:00: Report called to Michelle at [facility].
--- NOTE | 2021-10-20 21:20 | PC.NURSE ---
Patient taken by cliff [facility] to [facility]. [facility] notified. Patient tolerated transfer to [facility] well.
== END 2021-10-20 21:22 | disposition hospice, inpatient (51) | DRG 291 ==
LOC: ER 14:44 → MEDSURG 17:53
PROVIDERS: Internal Medicine; Admitting Provider Internal Medicine; Emergency Provider Family Medicine; PCP Internal Medicine; Visit Provider Internal Medicine
DX: I11.0 Hypertensive heart disease with heart failure (principal); I50.33 Acute on chronic diastolic (congestive) heart failure; Z68.43 Body mass index [BMI] 50.0-59.9, adult; J90 Pleural effusion, not elsewhere classified; J44.9 Chronic obstructive pulmonary disease, unspecified; I48.91 Unspecified atrial fibrillation; I08.0 Rheumatic disorders of both mitral and aortic valves; N30.20 Other chronic cystitis without hematuria; F32.A Depression, unspecified; Z99.81 Dependence on supplemental oxygen; E11.65 Type 2 diabetes mellitus with hyperglycemia; E11.40 Type 2 diabetes mellitus with diabetic neuropathy, unspecified; K21.9 Gastro-esophageal reflux disease without esophagitis; Z85.850 Personal history of malignant neoplasm of thyroid; E89.0 Postprocedural hypothyroidism; E66.01 Morbid (severe) obesity due to excess calories; G47.33 Obstructive sleep apnea (adult) (pediatric); Z86.73 Personal history of transient ischemic attack (TIA), and cerebral infarction without residual deficits; R04.0 Epistaxis; Z99.3 Dependence on wheelchair; Z79.4 Long term (current) use of insulin; Z79.51 Long term (current) use of inhaled steroids; Z86.16 Personal history of COVID-19; E78.5 Hyperlipidemia, unspecified; N39.41 Urge incontinence; Z66 Do not resuscitate
CPT/HCPCS: 32555; 36415; 36416; 51702; 71045; 71250; 80048; 80053; 82042; 82962; 83036; 83615; 83735; 83880; 83986; 84145; 84157; 84443; 84478; 84484; 85025; 85610; 86140; 87040; 87070; 87075; 87205; 87426; 93005; 94664; 96365; 96372; 96374; 96375; 99285; J1815; J1940; J1956; J3490